=== PATIENT | male | born 1960 | race Caucasian/White ===

== ENCOUNTER → 2017-10-19 16:57 | Outpatient (CLI) | payer OTHER, SELFPAY ==
[2017-10-19 17:49] LABS: Absolute Lymphocyte Count 1.54 X10^3/ul (0.83-4.51); Absolute Neutrophil Count 3.5 X10^3/uL (2.0-7.7); Basophil# 0.03 X10^3/uL; Basophil% 0.5 % (0-1); Eosinophil# 0.22 X10^3/uL; Eosinophils% 3.8 % (0-5); Hemoglobin 14.4 g/dl (13.0-16.5); Lymphocyte # 1.54 X10^3/ul (4.0); Lymphocyte % 26.7 % (19-41); Mean Corp Hgb Conc 33.5 g/gl (32-36); Mean Corpuscular Hgb 30.4 pg (27.0-32.0); Mean Corpuscular Volume 90.9 fL (80-94); Mean Platelet Vol. 11.3 fl (6.2-12.0); Monocyte# 0.47 X10^3/uL; Monocyte% 8.2 % (0-10); Neutrophil # 3.49 X10^3/uL (2.7-7.7); Neutrophil % 60.6 % (47-70); Platelet Count 217 K/mm3 (150-450); RBC Distribution Width CV 13.4 % (11.6-14.6); RBC Distribution Width SD 44.3 fl (35.1-43.9); Red Blood Count 4.73 M/mm3 (4.6-6.2); White Blood Count 5.8 K/mm3 (4.4-11.0)
[2017-10-19 18:08] LABS: POSITIVE COUNT NO; POSITIVE DIFFERENTIAL NO; POSITIVE MORPHOLOGY NO
[2017-10-19 18:17] LABS: ALB/GLOB Ratio 1.1 RATIO (0.9-2.4); AST(SGOT) 31 U/L (15-37); Alanine Aminotransfer ALT/SGPT 42 U/L (16-61); Albumin, Serum 3.9 g/dL (3.2-5.0); Alkaline Phosphatase 68 U/L (45-117); Anion Gap 10 (5-15); BUN 11 mg/dL (7-18); Calcium,Total 8.7 mg/dL (8.5-10.1); Chloride 105 mmol/L (98-107); Creatinine, Serum 0.79 mg/dL (0.70-1.30); EST Glomerular Filtration Rate 107 mL/min (>60); Est Glom Filt Rate - Afr Amer 130 mL/min (>60); Globulin 3.6 g/dL (2.2-4.2); Glucose 80 mg/dL (74-106); Potassium 3.8 mmol/L (3.5-5.1); Protein, Total 7.5 g/dL (6.4-8.2); Sodium Level 140 mmol/L (136-145)
[2017-10-29 04:06] LABS: QNTFERON TB Ag Minus Nil Value 0 IU/mL (.); QNTFERON TB Ag Value 0.05 IU/mL (.); QNTFERON TB Mitogen Value > 10.00 IU/mL (.); QNTFERON TB Nil Value 0.05 IU/mL (.)
[2017-10-29 11:13] LABS: QNTIFERON TB Gold Negative (Negative)
== END ==
PROVIDERS: Family Provider Family Medicine; PCP Family Medicine; Visit Provider Physician Assistant
DX: L40.0 Psoriasis vulgaris (principal); Z79.899 Other long term (current) drug therapy
CPT/HCPCS: 36415; 80053; 85025; 86480

== ENCOUNTER → 2018-05-06 16:03 | Outpatient (CLI) | payer OTHER, SELFPAY ==
[2018-05-06 17:30] LABS: Absolute Lymphocyte Count 1.24 X10^3/ul (0.83-4.51); Absolute Neutrophil Count 3.4 X10^3/uL (2.0-7.7); Basophil# 0.03 X10^3/uL; Basophil% 0.5 % (0-1); Eosinophil# 0.23 X10^3/uL; Eosinophils% 4.2 % (0-5); Hematocrit 44.5 % (40-54); Hemoglobin 14.5 g/dl (13.0-16.5); Lymphocyte # 1.24 X10^3/ul (4.0); Lymphocyte % 22.6 % (19-41); Mean Corp Hgb Conc 32.6 g/gl (32-36); Mean Corpuscular Hgb 29.7 pg (27.0-32.0); Mean Platelet Vol. 10.6 fl (6.2-12.0); Monocyte# 0.57 X10^3/uL; Monocyte% 10.4 % (0-10); Neutrophil # 3.41 X10^3/uL (2.7-7.7); Neutrophil % 62.3 % (47-70); Platelet Count 185 K/mm3 (150-450); RBC Distribution Width CV 13.4 % (11.6-14.6); RBC Distribution Width SD 44.2 fl (35.1-43.9); Red Blood Count 4.89 M/mm3 (4.6-6.2); White Blood Count 5.5 K/mm3 (4.4-11.0)
[2018-05-06 17:32] LABS: POSITIVE COUNT NO; POSITIVE DIFFERENTIAL NO; POSITIVE MORPHOLOGY NO
[2018-05-06 17:42] LABS: Erythrocyte Sedimentation Rate 13 mm/hr (0-20)
[2018-05-06 17:48] LABS: ALB/GLOB Ratio 1.1 RATIO (0.9-2.4); AST(SGOT) 35 U/L (15-37); Alanine Aminotransfer ALT/SGPT 47 U/L (16-61); Albumin, Serum 3.9 g/dL (3.2-5.0); Alkaline Phosphatase 75 U/L (45-117); Anion Gap 12 (5-15); BUN 11 mg/dL (7-18); BUN/Creat Ratio 15.1 RATIO (10-20); Calcium,Total 8.4 mg/dL (8.5-10.1); Chloride 106 mmol/L (98-107); Creatinine, Serum 0.73 mg/dL (0.70-1.30); EST Glomerular Filtration Rate 118 mL/min (>60); Est Glom Filt Rate - Afr Amer 142 mL/min (>60); Globulin 3.5 g/dL (2.2-4.2); Glucose 66 mg/dL (74-106); PSA,Total - Annual Screen 1.41 ng/mL (0.00-4.00); Potassium 3.8 mmol/L (3.5-5.1); Protein, Total 7.4 g/dL (6.4-8.2); Sodium Level 142 mmol/L (136-145); Thyroid Stim Hormone (TSH) 1.95 uIU/mL (0.358-3.74)
== END ==
PROVIDERS: Family Provider Family Medicine; PCP Family Medicine; Referring Provider Physician Assistant; Visit Provider Physician Assistant
DX: L40.0 Psoriasis vulgaris (principal); Z79.899 Other long term (current) drug therapy
CPT/HCPCS: 36415; 80053; 84153; 84443; 85025; 85652; 86038; G0103

== ENCOUNTER → 2019-06-17 16:05 | Outpatient (CLI) | payer OTHER, SELFPAY ==
[2019-06-17 17:34] LABS: Absolute Neutrophil Count 3.3 X10^3/uL (2.0-7.7); Basophil# 0.03 X10^3/uL; Basophil% 0.6 % (0-1); Eosinophils% 3.7 % (0-5); Hematocrit 43.7 % (40-54); Hemoglobin 14.3 g/dL (13.0-16.5); Lymphocyte % 27.6 % (19-41); Mean Corp Hgb Conc 32.7 g/dL (32-36); Mean Corpuscular Hgb 29.4 pg (27.0-32.0); Mean Corpuscular Volume 89.9 fL (80-94); Mean Platelet Vol. 10.9 fl (6.2-12.0); Monocyte% 7.4 % (0-10); NRBC Flagged by Analyzer 0 % (0-5); Neutrophil % 60.5 % (47-70); Platelet Count 201 K/mm3 (150-450); RBC Distribution Width CV 13.2 % (11.6-14.6); RBC Distribution Width SD 43.7 fl (35.1-43.9); Red Blood Count 4.86 M/mm3 (4.6-6.2); White Blood Count 5.4 K/mm3 (4.4-11.0)
[2019-06-17 18:17] LABS: ALB/GLOB Ratio 1.2 RATIO (0.9-2.4); AST(SGOT) 40 U/L (15-37); Alanine Aminotransfer ALT/SGPT 50 U/L (16-61); Albumin, Serum 3.8 g/dL (3.2-5.0); Alkaline Phosphatase 76 U/L (45-117); Anion Gap 5 (5-15); BUN 11 mg/dL (7-18); BUN/Creat Ratio 17.2 RATIO (10-20); Calcium,Total 8.7 mg/dL (8.5-10.1); Chloride 106 mmol/L (98-107); Creatinine, Serum 0.64 mg/dL (0.70-1.30); EST Glomerular Filtration Rate 136 mL/min (>60); Est Glom Filt Rate - Afr Amer 164 mL/min (>60); Globulin 3.2 g/dL (2.2-4.2); Glucose 79 mg/dL (74-106); Potassium 3.7 mmol/L (3.5-5.1); Sodium Level 140 mmol/L (136-145)
[2019-06-20 20:06] LABS: QNTFERON TB Mitogen Value > 10.00 IU/mL (.); QNTFERON TB Nil Value 0.02 IU/mL (.); QNTFERON TB1+ Ag Value 0.02 IU/mL (.); QNTFERON TB2+ Ag Value 0.01 IU/mL (.)
[2019-06-21 00:53] LABS: QNTIFERON TB Positive Criteria Negative (Negative)
== END ==
PROVIDERS: PCP Family Medicine; Referring Provider Dermatology Pediatric Dermatology; Visit Provider Dermatology Pediatric Dermatology
DX: L40.0 Psoriasis vulgaris (principal)
CPT/HCPCS: 36415; 80053; 84153; 85025; 86480; G0103

== ENCOUNTER 2021-03-17 14:46 | Outpatient (CLI) | payer OTHER, SELFPAY ==
[2021-03-17 17:59] LABS: Absolute Neutrophil Count 3.8 X10^3/uL (2.0-7.7); Basophil# 0.06 X10^3/uL; Eosinophil# 0.24 X10^3/uL; Hematocrit 44.6 % (40-54); Hemoglobin 14.4 g/dL (13.0-16.5); Lymphocyte % 23.3 % (19-41); Mean Corp Hgb Conc 32.3 g/dL (32-36); Mean Corpuscular Hgb 29.6 pg (27.0-32.0); Mean Corpuscular Volume 91.8 fL (80-94); Mean Platelet Vol. 11.3 fl (6.2-12.0); Monocyte# 0.49 X10^3/uL; Monocyte% 8.2 % (0-10); NRBC Flagged by Analyzer 0 % (0-5); Neutrophil # 3.81 X10^3/uL (2.7-7.7); Neutrophil % 63.3 % (47-70); Platelet Count 232 K/mm3 (150-450); RBC Distribution Width CV 12.9 % (11.6-14.6); RBC Distribution Width SD 43.4 fl (35.1-43.9); Red Blood Count 4.86 M/mm3 (4.6-6.2)
[2021-03-17 18:22] LABS: AST(SGOT) 33 U/L (15-37); Alanine Aminotransfer ALT/SGPT 50 U/L (16-61); Albumin, Serum 3.8 g/dL (3.2-5.0); Alkaline Phosphatase 80 U/L (45-117); Anion Gap 7 (5-15); BUN 17 mg/dL (7-18); BUN/Creat Ratio 24.4 RATIO (10-20); Calcium,Total 8.9 mg/dL (8.5-10.1); Chloride 104 mmol/L (98-107); EST Glomerular Filtration Rate 123 mL/min (>60); Est Glom Filt Rate - Afr Amer 148 mL/min (>60); Globulin 3.9 g/dL (2.2-4.2); Glucose 66 mg/dL (74-106); Potassium 3.5 mmol/L (3.5-5.1); Protein, Total 7.7 g/dL (6.4-8.2); Sodium Level 138 mmol/L (136-145)
[2021-03-20 16:09] LABS: QNTFERON TB Mitogen Value > 10.00 IU/mL (.); QNTFERON TB Nil Value 0.03 IU/mL (.); QNTFERON TB1+ Ag Value 0.19 IU/mL (.); QNTFERON TB2+ Ag Value 0.02 IU/mL (.)
[2021-03-21 11:26] LABS: QNTIFERON TB Positive Criteria Negative (Negative)
== END 2021-03-17 23:59 | disposition short-term general hospital (02) ==
LOC: MTLAB 14:48
PROVIDERS: PCP Family Medicine; Referring Provider Physician Assistant; Visit Provider Physician Assistant
DX: L40.0 Psoriasis vulgaris (principal); Z79.899 Other long term (current) drug therapy
CPT/HCPCS: 36415; 80053; 85025; 86480

== ENCOUNTER 2023-07-19 07:39 | Day surgery (SDC) | payer BC, SELFPAY ==
[2023-07-19] VITALS (12 sets, daily range): BP systolic 106–137; BP diastolic 72–90; PULSE 74–92; RESP 16–23; TEMP 36.4–36.9; O2SAT 94–99; BMI 29.9
--- NOTE | 2023-07-19 07:47 | RAD_ITS ---
EXAM: XR CHEST, 1 VIEW CLINICAL INDICATION: chest pain TECHNIQUE: Frontal view of the chest. COMPARISON: XR Chest dated 08/14/2012 FINDINGS: LUNGS AND PLEURAL SPACES: Normal. No consolidation or edema. No pneumothorax. No effusion. HEART: Normal heart size. MEDIASTINUM: No mediastinal or hilar mass. BONES/JOINTS: No acute abnormality. RAD/Chest 1 View (Portable) IMPRESSION: No acute cardiopulmonary abnormality. No interval change. Electronically Signed: Brandon Sifuentes MD at 8:39 EDT ,
--- NOTE | 2023-07-19 07:47 | EKG12_ITS ---
Test Reason : CP Blood Pressure : / mmHG Vent. Rate : 092 BPM Atrial Rate : 092 BPM P-R Int : 174 ms QRS Dur : 090 ms QT Int : 340 ms P-R-T Axes : 027 -02 009 degrees QTc Int : 420 ms Normal sinus rhythm Normal ECG Confirmed by Raj Llanes ([id number]), assistant production editor JEISON HAMMOND ([id number]) on 07/20/2023 10:17:01 AM Referred By: Confirmed By:Raj Llanes
[2023-07-19] MEDS: Aspirin 81 MG TAB.CHEW 324 MG PO (07:51)
[2023-07-19 08:01] LABS: Absolute Lymphocyte Count 1.43 X10^3/uL (0.83-4.51); Absolute Neutrophil Count 4.7 X10^3/uL (2.0-7.7); Basophil# 0.03 X10^3/uL; Basophil% 0.4 % (0-1); Eosinophil# 0.26 X10^3/uL; Eosinophils% 3.6 % (0-5); Hemoglobin 14.8 g/dL (13.0-16.5); Lymphocyte # 1.43 X10^3/ul (0.83-4.51); Mean Corp Hgb Conc 32.2 g/dL (32-36); Mean Corpuscular Hgb 29.1 pg (27.0-32.0); Mean Corpuscular Volume 90.4 fL (80-94); Mean Platelet Vol. 11.2 fl (6.2-12.0); Monocyte# 0.72 X10^3/uL; Monocyte% 10.1 % (0-10); NRBC Flagged by Analyzer 0 % (0-5); Neutrophil # 4.69 X10^3/uL (2.7-7.7); Neutrophil % 65.5 % (47-70); Platelet Count 190 K/mm3 (150-450); RBC Distribution Width CV 12.9 % (11.6-14.6); RBC Distribution Width SD 42.6 fl (35.1-43.9); Red Blood Count 5.09 M/mm3 (4.6-6.2); White Blood Count 7.2 K/mm3 (4.4-11.0)
--- NOTE | 2023-07-19 08:10 | EDS_ITS ---
HPI History of Present Illness Chief Complaint: Chest Pain Informant: patient and family Narrative Narrative: 62-year-old male presenting to the emergency room with chest pain. Patient notes a history of psoriasis. He states he is otherwise a very healthy indivi dual. He is non-smoker. 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 Last evening around 0500 hrs. he began to feel a knot in his lower mid chest. Nonradiating. States it was constant for about an hour until he was driving home when it started to ease up but is still present. He notes no associated symptoms like arm jaw radiation, nausea, fatigue, dyspnea. He has had this once before which led to a stress test that was negative. He states it has been many years since that has happened. He notes no change in his exercise tolerance. [facility] Medical History Psoriasis Home Medications ?Medication ?Instructions ?Recorded ?Last Taken ?Type secukinumab 75 mg/0.5 mL 150 mg subcut Q4W 02/18/21 Unknown History subcutaneous syringe (Cosentyx) Allergy/AdvReac Type Severity Reaction Status Date / Time No Known Allergies Allergy Verified 07/19/23 07:42 Family History Other Heart disease Social History Smoking Status: Former smoker alcohol intake: current alcohol intake frequency: 0-2 drinks per day Alcohol type: beer ROS ROS ED Constitutional Constitutional ED: Denies chills, fever(s) or weight loss Eyes Eyes: Denies change in vision or diplopia ENT ENT ED: Denies ear pain, rhinorrhea or sore throat Cardiovascular Cardiovascular: Reports as per HPI and chest pain; Denies orthopnea, palpitations or racing heartbeat Respiratory/Chest Respiratory/Chest: Denies cough, dyspnea or orthopnea Gastrointestinal Gastrointestinal: Denies abdominal pain, diarrhea, nausea or vomiting Genitourinary Genitourinary ED: Denies dysuria, hematuria or urinary frequency Musculoskeletal Musculoskeletal: Denies arthralgias, back pain, myalgias or neck pain Integumentary Denies abscess or rash Neurologic Neurologic: Denies headache(s) or weakness Psychiatric Psychiatric: Denies anxiety, depression, suicidal ideation or suicidal thoughts Endocrine Endocrinology: Denies polydipsia, polyphagia or polyuria Allergic/Immunologic Allergic/Immunologic ED: Denies mouth swelling, tongue swelling or urticaria EXAM Physical Exam Const Vital Signs: 07/19/23 07:39 07/19/23 07:42 07/19/23 08:39 Temperature 98.4 F Temperature Source Oral Pulse Rate 92 85 Respiratory Rate 18 17 Respiratory Effort Normal Non-Labored Blood Pressure 137/78 H 115/73 Blood Pressure Mean 97 87 Pulse Ox 95 96 Oxygen Delivery Method Room Air Room Air 07/19/23 09:00 07/19/23 10:00 07/19/23 11:00 Temperature Temperature Source Pulse Rate 82 83 83 Respiratory Rate 16 23 H 18 Respiratory Effort Blood Pressure 123/87 H 117/81 H 123/75 H Blood Pressure Mean 99 93 91 Pulse Ox 99 95 96 Oxygen Delivery Method Room Air Room Air 07/19/23 13:00 07/19/23 13:39 Temperature 97.5 F L Temperature Source Pulse Rate 85 86 Respiratory Rate 16 19 H Respiratory Effort Blood Pressure 129/72 H 135/82 H Blood Pressure Mean 91 99 Pulse Ox 96 94 Oxygen Delivery Method Room Air Positive well nourished and well developed General Appearance ED: well developed HEENT Reports normocephalic, head/scalp atraumatic and moist mucous membranes Eyes PERRL and EOMs intact bilaterally Neck no lymphadenopathy, supple and no JVD Resp normal respiratory effort and clear to auscultation bilaterally Cardio regular rate, regular rhythm and no murmurs GI normal to inspection, nondistended, normoactive bowel sounds and non-tender Palpation: soft Back/Spine no CVA tenderness and normal ROM Extremity normal to inspection General Extremety ED: Negative for edema General Extremity: Negative for edema Neuro oriented x3 and CN's II-XII intact bilaterally Sensorium / Orientation: alert Motor Exam: strength 5/5 throughout Psych mental status grossly normal Mood & Affect: Negative for depressed or tearful Skin no rashes or lesions noted and no wounds MDM MDM MDM Narrative Medical decision making narrative: Differential diagnosis includes but not limited to aortic dissection acute coron braxton syndrome, gastritis/esophagitis, pneumothorax, pericarditis myocarditis pericardial effusion. My independent interpretation of the chest x-ray is no acute process. Initial troponin of 17 and increased to 56. CBC normal. BMP within normal creatinine. Patient continues to feel the discomfort in his lower mid chest. States he really cannot describe it but knows it is not a normal feeling after reviewing the 2 troponins I contacted cardiology.. I spoke with cardiology. We are actually able to get him an outpatient stress test today through the emergency department. He went to the stress test and complained of increased chest pain with exertion. However his EKG and echocardiogram were essentially negative. Dr. Llanes from cardiology came to evaluate the patient. After speaking with him and reviewing the findings decision was made to take him down for heart catheterization which the patient is agreeable to. History & Record Review Discussion w/independent historian: Patient and Family Additional record(s) reviewed:: Prior labs Lab Data Attestation: I reviewed the patient's lab results. Labs: Laboratory Results - last 24 hr 07/19/23 07/19/23 07:45 09:50 WBC 7.2 RBC 5.09 Hgb 14.8 Hct 46.0 MCV 90.4 MCH 29.1 MCHC 32.2 RDW Std Deviation 42.6 RDW Coeff of Ariana 12.9 Plt Count 190 MPV 11.2 Immature Gran % (Auto) 0.400 Neut % (Auto) 65.5 Lymph % (Auto) 20.0 [place] % (Auto) 10.1 H Eos % (Auto) 3.6 Baso % (Auto) 0.4 Absolute Neuts (auto) 4.7 Absolute Lymphs (auto) 1.43 Nucleated RBC % 0 Sodium 137 Potassium 4.1 Chloride 104 Carbon Dioxide 28.0 Anion Gap 5 BUN 13 Creatinine 0.90 Estim Creat Clear Calc 97.11 Est GFR (MDRD) Af Amer 110 Est GFR (MDRD) Non-Af 91 BUN/Creatinine Ratio 14.5 Glucose 149 H Calcium 9.0 Troponin I High Sens 17 56 Radiography Diagnostic Testing: Clinical Impression(s) from Imaging Studies Chest X-Ray 07/19/23 07:47 IMPRESSION: No acute cardiopulmonary abnormality. No interval change. Electronically Signed: Brandon Sifuentes MD at 8:39 EDT , EKG Initial EKG: Attestation: I personally reviewed and interpreted this EKG as follows: Comments: Normal sinus rhythm ventricular rate of 92 bpm. No concerning features of ACS noted Management Discussion w/another healthcare provider: Engineering Specialist Technician (Cardiology (Dr. Llanes)) Discharge Plan Dx/Rx/DC Orders Clinical Impression: Chest pain Disposition Disposition: Acute Care Hospital [facility] [place] [facility]
[2023-07-19 08:20] LABS: Anion Gap 5 (5-15); BUN 13 mg/dL (7-18); BUN/Creat Ratio 14.5 RATIO (10-20); Chloride 104 mmol/L (98-107); EST Glomerular Filtration Rate 91 mL/min (>60); Est Glom Filt Rate - Afr Amer 110 mL/min (>60); Estimated Creatinine Clearance 97.11 ml/min; Glucose 149 mg/dL (74-106); Potassium 4.1 mmol/L (3.5-5.1); Sodium Level 137 mmol/L (136-145); Troponin-I HS (w/2H Reflex) 17 pg/mL (3.0-78.0)
[2023-07-19 09:57] LABS: Reflex Troponin-HS? (from REC) Y
[2023-07-19 10:15] LABS: Troponin-I HS 56 pg/mL (3.0-78.0)
--- NOTE | 2023-07-19 11:19 | STE_ITS ---
Reason For Study: CHEST PAIN Stress Results Protocol: Manjit Protocol Maximum Predicted HR: 157 bpm Target HR: 133 bpm % Maximum Predicted HR: 90 % DurationHeart Rate Stage (mm:ss) (bpm) BP Comment BASELINE 78 120/70 STAGE 1 3:00 105 128/70 STAGE 2 3:00 125 152/78INCREASED SOB, WITH DULL PAIN IN CHEST STAGE 3 2:00 142 182/82DISCOMFORT IN CHEST THE SAME RECOVERY 103 130/82 Stress Duration: 8:00 mm:ss Maximum Stress HR: 142 bpm Baseline Echocardiogram Findings The estimated ejection fraction is 65 %. Postexercise EF is 70%. Stress Echo Wall motion Data Resting WM Intermediate WM Stress WM Resting Wall Motion Wall Motion Stress No regional wall motion No regional wall motion abnormalities noted. abnormalities noted. EKG Data The baseline ECG displays normal sinus rhythm. No significant ischemic changes. Symptoms with Stress The patient experinced Mild, dull chest pain with exercise . ECHO/Stress Test Echo w/o Contrast Interpretation Summary The estimated ejection fraction is 65 %. Stress echo is negative for exercise-induced EKG or echocardiographic changes o f ischemia. The test is positive for exercise-induced chest discomfort Functional capacity is normal for age Ordering Physician: Kaden Cuevas Performed By: Tova Machado RCS
--- NOTE | 2023-07-19 14:04 | PCM.CONS.C ---
Assessment & Plan Assessment/Plan (1) Chest pain: QUALIFIERS: Chest pain type: precordial pain Qualified Code(s): R07.2 - Precordial pain PLAN: second troponin went up to 17 His initial enzymes were single digit isThe patient's chest discomfort started with heavy activity earlier this morning. and he went to stress test which he symptoms increased he had did not meet criteria for ischemia EKG changes his wall motion was not completely visualized on the echo. He continues to have some of the chest discomfort although it is resolved back to baseline after the stress test. 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 I recommend the patient undergo a left heart catheterization the procedure risk/benefit and alternatives were explained to the patient who voiced understanding and agrees to proceed. PLAN: Plan 1. Recommend urgent left heart catheterization HPI Consult Data Date of Consult: 07/19/23 HPI Narrative Reason for Consultation: Chest pain and abnormal stress test. HPI Narrative: HOLLIE STOVER, is a 62 M who presents to the emergency room with [facility] with an episode of chest symptoms in his lower anterior thorax that started at approximately 0500 hrs. 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 The patient never experienced this in the past. His cardiac isoenzymes were negative x 2 and his EKG did not show any acute ischemic changes. Patient's only known past medical history was psoriasis. He was a former smoker. There is also a family of heart disease but is uncertain if this was valvular or atherosclerotic. Patient denies any PND orthopnea and denies any lower extremity edema. He denies any claudication. A stress echo was performed today where the patient went 8 minutes on the treadmill he had increasing chest symptoms on the treadmill did not meet diagnostic criteria for ischemic changes on the EKG his wall motion as best could be ascertained was unremarkable for any wall motion abnormalities. [facility] Medical History Psoriasis Home Medications ?Medication ?Instructions ?Recorded ?Last Taken ?Type secukinumab 75 mg/0.5 mL 150 mg subcut Q4W 02/18/21 Unknown History subcutaneous syringe (Cosentyx) Allergy/AdvReac Type Severity Reaction Status Date / Time No Known Allergies Allergy Verified 07/19/23 07:42 Family History Other Heart disease Social History Smoking Status: Former smoker alcohol intake: current alcohol intake frequency: 0-2 drinks per day Alcohol type: beer ROS Constitutional Constitutional: Reports as per HPI Eyes Eyes: Reports systems reviewed and no addt'l complaints, except as documented ENT HEENT: Reports systems reviewed and no addt'l complaints, except as documented Cardiovascular Cardiovascular: Reports as per HPI Respiratory/Chest Respiratory/Chest: Reports as per HPI Gastrointestinal Gastrointestinal: Reports systems reviewed and no addt'l complaints, except as documented Genitourinary Genitourinary: Reports systems reviewed and no addt'l complaints, except as documented Musculoskeletal Musculoskeletal: Reports systems reviewed and no addt'l complaints, except as documented Integumentary Integumentary: Reports systems reviewed and no addt'l complaints, except as documented Neurologic Neurologic: Reports systems reviewed and no addt'l complaints, except as documented Psychiatric Psychiatric: Reports systems reviewed and no addt'l complaints, except as documented Endocrine Endocrinology: Reports systems reviewed and no addt'l complaints, except as documented Hematologic/Lymphatic Hematologic/Lymphatic: Reports systems reviewed and no addt'l complaints, except as documented Allergic/Immunologic Allergic/Immunologic: Reports systems reviewed and no addt'l complaints, except as documented Risk Stratification Risk Stratification Applicable: Yes Age >/= 65: No >/= 3 CAD Risk Factors (HTN, HLD, DM, family hx of CAD, or current smoker): No Aspirin Use in the Past 7 Days: No Severe Angina (>/= episodes in 24 hours): Yes EKG ST Changes >/= 0.5mm: No Positive Cardiac Marker: No [place] Risk Stratification Score: 1 [place] % Risk: 5% Risk Charges/Coding Visit Charges Inpatient E&M: 76445 Init Hosp L2 Objective Data Vital Signs: Vital Signs Temp Pulse Resp BP Pulse Ox O2 Del Method 97.5 F L 86 19 H 135/82 H 94 Room Air 07/19/23 13:39 07/19/23 13:39 07/19/23 13:39 07/19/23 13:39 07/19/23 13:39 07/19/23 13:00 Oxygen Delivery Method Room Air Weight: 208 lb 15.971 oz Body Mass Index (BMI) 29.9 Lab / Micro Data Attestation: I reviewed the patient's lab results. 07/19/23 07:45 07/19/23 07:45 Labs: Laboratory Results - last 24 hr 07/19/23 07:45: WBC 7.2, RBC 5.09, Hgb 14.8, Hct 46.0, MCV 90.4, MCH 29.1, MCHC 32.2, RDW Std Deviation 42.6, RDW Coeff of Ariana 12.9, Plt Count 190, MPV 11.2, Immature Gran % (Auto) 0.400, Neut % (Auto) 65.5, Lymph % (Auto) 20.0, [place] % (Auto) 10.1 H, Eos % (Auto) 3.6, Baso % (Auto) 0.4, Absolute Neuts (auto) 4.7, Absolute Lymphs (auto) 1.43, Nucleated RBC % 0, Sodium 137, Potassium 4.1, Chloride 104, Carbon Dioxide 28.0, Anion Gap 5, BUN 13, Creatinine 0.90, Estim Creat Clear Calc 97.11, Est GFR (MDRD) Af Amer 110, Est GFR (MDRD) Non-Af 91, BUN/Creatinine Ratio 14.5, Glucose 149 H, Calcium 9.0, Troponin I High Sens 17 07/19/23 09:50: Troponin I High Sens 56 Cardiology Labs/Tests 07/19/23 07:45: WBC 7.2, RBC 5.09, Hgb 14.8, Hct 46.0, MCV 90.4, MCH 29.1, MCHC 32.2, Plt Count 190, MPV 11.2, Immature Gran % (Auto) 0.400, Neut % (Auto) 65.5, Lymph % (Auto) 20.0, [place] % (Auto) 10.1 H, Eos % (Auto) 3.6, Baso % (Auto) 0.4, Absolute Neuts (auto) 4.7, Nucleated RBC % 0, Sodium 137, Potassium 4.1, Chloride 104, Carbon Dioxide 28.0, Anion Gap 5, BUN 13, Creatinine 0.90, Est GFR (MDRD) Af Amer 110, Est GFR (MDRD) Non-Af 91, BUN/Creatinine Ratio 14.5, Glucose 149 H, Calcium 9.0 Rhythm: EKG: ECHO: Stress Test: Cardiac Cath: PCI: CT Surgery: Holter monitor: EPS: PPM: CXR: Chest CT Scan: Radiography Diagnostic Testing: Radiology Impression Chest X-Ray 07/19/23 07:47 IMPRESSION: No acute cardiopulmonary abnormality. No interval change. Electronically Signed: Brandon Sifuentes MD at 8:39 EDT ,
--- NOTE | 2023-07-19 14:44 | CL.D_ITS ---
Patient Name: HOLLIE STOVER Study Date: 07/19/2023 Performing: Lynda George MD Ht: 70 inches 177.8 cm : 1960 Wt: 209.3 lbs 94.8 kg Age: 62 Gender: male BSA: 2.13 PROCEDURE(S) PERFORMED [id number]-([id number])[facility] CLINICAL PROFILE AND INDICATIONS Heart Failure: None CAD Presentations: Unstable angina. CONCLUSIONS CAD as described. RECOMMENDATIONS Medical therapy for coronary artery disease at this time DESCRIPTION OF PROCEDURE The patient arrived to the procedure lab. The risks and benefits of the procedure as well as a full description of our services here and current unavailability of surgical backup were fully explained to the patient and/or their significant other prior to the catheterization. The Timeout was completed, verifying the correct patient and procedure. The patient's procedural site was prepped and draped in the usual fashion. Local anesthetic was given subcutaneously to right radial region with Lidocaine 2%. Using a modified Seldinger technique, arterial access was obtained via the right radial artery, a 6Fr sheath was inserted. Left Coronary Artery selective angiography was performed in multiple views using a 5 Fr. JL3.5 catheter. Right Coronary Artery selective angiography was then performed in multiple views using a 5 Fr. JR 4 catheter.The arterial sheath was pulled and a TR Band was applied for hemostasis CORONARY ANGIOGRAPHY DOMINANCE: Right Dominant LEFT MAIN: 30% distal stenosis LEFT ANTERIOR DESCENDING ARTERY: OSTIAL LAD: 40 % eccentric Stenosis CIRCUMFLEX ARTERY: OSTIAL CIRC: 50-60 % Stenosis RIGHT CORONARY ARTERY: Mild luminal irregularities COMPLICATIONS No Complications PROCEDURE MEDICATIONS Versed 1 mg IV Fentanyl 50 mcg IV Oxygen: 2 L/min via nasal cannula Heparin given IA 07/19/2023 14:08:19 Verapamil 2.5mg, Ntg 100mcgs, 3000 units of Heparin given IA 07/19/2023 14:08:19 SUMMARY OF HEMODYNAMIC DATA Time AIR REST ECG 13:53:04 AO 88/71 (79) SA 14:10:44 AO 113/82 (97) 14:14:14 Signed By Lynda George MD On 07/19/2023 14:44:54 Signed By Lynda George MD On 07/19/2023 14:44:01 Signed By Lynda George MD On 07/19/2023 14:43:01 Lynda George MD
--- NOTE | 2023-07-19 15:38 | PCM.PN.CARD ---
Subjective Subjective Patient's left heart catheterization revealed mild left main trunk disease, moderate ostial LAD and ostial circumflex disease the LAD being approximately 40% in the circumflex 50%. The right coronary artery had no significant disease. It appears that this is nonobstructive and the chest symptoms were noncardiac in etiology. However, given the found coronary artery disease aggressive secondary risk factors will be addressed. Rosuvastatin 20 mg daily will be instituted. The patient will have fasting lipids and liver functions reevaluated in 6 to 8 weeks. He will be seen in our office in the morning that same day. The patient was given instructions. Once the patient's recovery is complete from his cath he can be discharged to home. Objective Data Vital Signs: Vital Signs Temp Pulse Resp BP Pulse Ox O2 Del Method 97.5 F L 86 19 H 135/82 H 94 Room Air 07/19/23 13:39 07/19/23 13:39 07/19/23 13:39 07/19/23 13:39 07/19/23 13:39 07/19/23 13:00 Oxygen Delivery Method Room Air Weight: 208 lb 15.971 oz Body Mass Index (BMI) 29.9 Lab / Micro Data 07/19/23 07:45 07/19/23 07:45 Labs: Laboratory Results - last 24 hr 07/19/23 07:45: WBC 7.2, RBC 5.09, Hgb 14.8, Hct 46.0, MCV 90.4, MCH 29.1, MCHC 32.2, RDW Std Deviation 42.6, RDW Coeff of Ariana 12.9, Plt Count 190, MPV 11.2, Immature Gran % (Auto) 0.400, Neut % (Auto) 65.5, Lymph % (Auto) 20.0, [place] % (Auto) 10.1 H, Eos % (Auto) 3.6, Baso % (Auto) 0.4, Absolute Neuts (auto) 4.7, Absolute Lymphs (auto) 1.43, Nucleated RBC % 0, Sodium 137, Potassium 4.1, Chloride 104, Carbon Dioxide 28.0, Anion Gap 5, BUN 13, Creatinine 0.90, Estim Creat Clear Calc 97.11, Est GFR (MDRD) Af Amer 110, Est GFR (MDRD) Non-Af 91, BUN/Creatinine Ratio 14.5, Glucose 149 H, Calcium 9.0, Troponin I High Sens 17 07/19/23 09:50: Troponin I High Sens 56 Cardiology Labs/Tests 07/19/23 07:45: WBC 7.2, RBC 5.09, Hgb 14.8, Hct 46.0, MCV 90.4, MCH 29.1, MCHC 32.2, Plt Count 190, MPV 11.2, Immature Gran % (Auto) 0.400, Neut % (Auto) 65.5, Lymph % (Auto) 20.0, [place] % (Auto) 10.1 H, Eos % (Auto) 3.6, Baso % (Auto) 0.4, Absolute Neuts (auto) 4.7, Nucleated RBC % 0, Sodium 137, Potassium 4.1, Chloride 104, Carbon Dioxide 28.0, Anion Gap 5, BUN 13, Creatinine 0.90, Est GFR (MDRD) Af Amer 110, Est GFR (MDRD) Non-Af 91, BUN/Creatinine Ratio 14.5, Glucose 149 H, Calcium 9.0 Rhythm: EKG: ECHO: Stress Test: Cardiac Cath: PCI: CT Surgery: Holter monitor: EPS: PPM: CXR: Chest CT Scan: Radiography Diagnostic Testing: Radiology Impression Chest X-Ray 07/19/23 07:47 IMPRESSION: No acute cardiopulmonary abnormality. No interval change. Electronically Signed: Brandon Sifuentes MD at 8:39 EDT Reading Location ID and State: [address] [place] [address] Tel , Service support , Assessment & Plan Assessment/Plan (1) CAD (coronary artery disease): QUALIFIERS: Coronary Disease-Associated Artery/Lesion type: [place] artery [place] vs. transplanted heart: [place] heart Associated angina: without angina Qualified Code(s): I25.10 - Atherosclerotic heart disease of [place] coronary artery without angina pectoris PLAN: The patient's stress test was abnormal with increasing chest symptoms with activity. However, the coronary anatomy shows 40 to 50% stenoses. We will address this with aggressive secondary risk factor modifications. Rosuvastatin has been started. (2) Chest pain: QUALIFIERS: Chest pain type: precordial pain Qualified Code(s): R07.2 - Precordial pain PLAN: The patient's chest discomfort appears to be noncardiac ischemic in etiology. It is resolving at this time. The patient does report in retrospect that he has had an significant cough over the last several days which is new for him which was not mentioned prior to me evaluating him post cath. PLAN: Plan Discharged to home after Clinical Supervisor recovery is completed.
== END 2023-07-19 18:30 | disposition home or self-care (01) ==
LOC: ED 14:19 → PCU 14:54 → ED 15:30 → PCU 15:30
PROVIDERS: Emergency Provider Emergency Medicine; PCP Family Medicine; Visit Provider Specialist
DX: I25.10 Atherosclerotic heart disease of native coronary artery without angina pectoris (principal); Z87.891 Personal history of nicotine dependence
CPT/HCPCS: 71045; 80048; 84484; 85025; 93005; 93017; 93350; 93454; 99152; 99153; 99285; J7040; Q9967; A4216; C1769; C1894

== ENCOUNTER → 2024-02-13 | Outpatient (CLI) | payer BC, SELFPAY ==
[2024-02-15 12:08] LABS: QNTFERON TB Mitogen Value > 10.00 IU/mL (.); QNTFERON TB Nil Value 0 IU/mL (.); QNTFERON TB1+ Ag Value 0.01 IU/mL (.); QNTFERON TB2+ Ag Value 0.03 IU/mL (.); QNTIFERON TB Positive Criteria Negative (Negative)
== END | disposition home or self-care (01) ==
PROVIDERS: PCP Family Medicine; Referring Provider Physician Assistant; Visit Provider Physician Assistant
DX: L40.0 Psoriasis vulgaris (principal); Z79.899 Other long term (current) drug therapy
CPT/HCPCS: 36415; 86480

== ENCOUNTER → 2025-01-16 | Outpatient (CLI) | payer BC, SELFPAY ==
--- OUTSIDE RECORDS SUMMARY | 2025-01-16 17:15 | XMS RPT_ITS | CCD ---
Author Organization [facility] Care Team Providers Care Ged Teacher Name Role Phone Coni Rogers MD Primary Care Provider Torri Nuñez Unavailable Torri Nuñez Unavailable Coni Rogers MD Primary Care Provider [phone] Coni Rogers MD Primary Care Provider [phone] CONI ROGERS Primary Care Unavailable PROVIDER, UNKNOWN Attending Unavailable PROVIDER, UNKNOWN Admitting Unavailable CONI ROGERS Primary Care Unavailable CHANTAL LA Attending Unavailable CONI ROGERS Primary Care Unavailable PROVIDER, UNKNOWN Attending Unavailable PROVIDER, UNKNOWN Admitting Unavailable CONI ROGERS Primary Care Unavailable CONI ROGERS Primary Care Unavailable STEPHANIA TINSLEY Referring Unavailab CONI Dunn Primary Care Unavailable KADEN DURON Attending Unavailable KADEN DURON Attending Unavailable CONI ROGERS Primary Care Unavailable CONI ROGERS Primary Care Unavailable SELF Referring Unavailable CONI ROGERS Attending Unavailable CONI ROGERS Primary Care Unavailable CONI ROGERS Referring Unavailable CONI ROGERS Primary Care Unavailable BUZZ SANTIAGO Attending Unavailable Florentino Rogers Primary Care Unavailable Raj Llanes Attending Unavailable Florentino Rogers Primary Care Unavailable Bia Zacarias Referring Unavailable Bia Zacarias Attending Unavailable Florentino Rogers Referring Unavailable Florentino Rogers Primary Care Unavailable Raj Llanes Attending Unavailable Florentino Rogers Primary Care Unavailable Kaden Cuevas Referring Unavailable Lorenza George Attending Unavailabl e Florentino Rogers Primary Care Unavailable Lorenza George Attending Lorenza Rocha Consulting Unavaileevlyne e Medications Current Medications Medication Drug Class(es) Dates Sig (Normalized) Sig (Original) acetaminophen 325 mg / oxyCODONE hydrochloride 5 mg oral tablet (5 sources) Opioid Agonist Start: 02-06-2023 take 1 tablet by mouth every six hours as needed for pain oxyCODONE-acetamino phen (PERCOCET) 5-325 mg tablet Indications: Postoperative pain Take 1 tablet by mouth every 6 hours as needed for pain. 25 tablet 02/06/2023 Active Start: 01-16-2023 take 1 tablet by raven th every six hours as needed for pain oxyCODONE-acetaminophen (PERCOCET) 5-325 mg tablet Indications: Postoperative pain Take 1 tablet by mouth every 6 hours as needed for pain. 15 tablet 0 01/16/2023 Active Comment on above: Take 1 tablet by raven th every 6 hours as needed for pain. CPAP (20 sources) Start: 07-18-2021 CPAP Initiate Auto PAP @ 5-20 cm of water with humidification. Mask (per patient preference) optional chin strap (if indicated) , filters, tubing, humidifier and lifetime supplies. 1 Each 07/18/2021 Active Start: 07-18-2021 CPAP Initiate Auto PAP @ 5-20 cm of water with humidification. Mask (per patient preference) optional chin strap (if indicated) , filters, tubing, humidifier and lifetime supplies. 1 Each 0 07/18/2021 Active Comment on above: Initiate Auto PAP @ 5-20 cm of water with humidification. Mask (per patient preference) optional chin strap (if indicated) , filters, tubing, humidifier and lifetime supplies. CPAP/BIPAP/OTHER (19 sources) Start: 06-20-2022 End: 11-04-2049 CPAP/BIPAP/OTHER Type .CPAPSettings into a note to see current settings/supplies/DME information. 1 Each 06/20/2022 11/04/2049 Active Start: 06-20-2022 End: 11-04-2049 CPAP/BIPAP/OTHER Type .CPAPS ettings into a note to see current settings/supplies/DME information. 1 Each 0 06/20/2022 11/04/2049 Active Comment on above: Type .CPAPSettings i nto a note to see current settings/supplies/DME information. polyethylene glycol 3350 [id number] mg / potassium chloride 2970 mg / sodium bicarbonate 6740 mg / sodium chloride 5860 mg / sodium sulfate 29755 mg powder for oral solution (1 source) Osmotic Laxative Start : 07-21 End: 07-21 peg 3350-Electrolytes (GOLYTELY) 236-22.74-6.74 -5.86 gram suspension Take 4,000 mL by mouth one time only for 1 dose. 1 Each 0 07/21/2021 07/21/2021 Active Comment on above: Take 4,000 mL by raven one time only for 1 dose. 1 ml secukinumab 150 mg/ml prefilled syringe (20 sources) Interleukin-17A Antagonist inject 150 mg by subcutaneous injection every month secukinumab (COSENTYX) 150 mg/mL injection Inject 150 mg subcutaneously once every month. Active End: 07-08-2021 secukinumab (COSENTYX PEN, 2 PENS,) 150 mg/mL pnij Inject subcutaneously twice daily. 0 07/08/2021 Discontinued Comment on above: Inject subcutaneousl y twice daily. Inject 150 mg subcut aneously once every month. Completed/Discontinued Medications Medication Drug Class(es) Dates Sig (Normalized) Sig (Original) FLUoxetine 40 mg oral capsule (14 sources) Serotonin Reuptake Inhibitor Start: 07-07-2022 End: 10-31-2022 take 1 capsule by mouth once daily FLUoxetine (PROZAC) 40 mg capsule Take 1 capsule by mouth once daily. 30 capsule 2 07/07/2022 10/10/2022 Discontinued Start: 06-07-2022 End: 07-07-2022 take 1 capsule by mouth once daily FLUoxetine (PROZAC) 20 mg capsule Indications: Adjustment disorder with mixed anxiety and depressed mood Take 1 capsule by mouth once daily. 30 capsule 2 06/07/2022 07/07/2022 Discontinued Comment on above: Take 1 capsule by [facility] once daily. omeprazole 40 mg delayed release oral capsule (1 source) Proton Pump Inhibitor Start: 11-30-2022 take 1 capsule by mouth once daily omeprazole (PRILOSEC) 40 mg capsule Take 1 capsule by mouth once daily. 90 capsule 0 11/30/2022 Active Comment on above: Take 1 capsule by mo idh once daily. Problems Active Problems Problem Classification Problem Date Documented Date Episodic/Chronic Adjustment disorders (3 sources) Adjustment disorder with mixed anxiety and depressed mood; Translations: [Adjustment disorder with mixed anxiety and depressed mood] Chronic Alcohol-related disorders (1 source) Alcohol abuse; Translations: [Alcohol dependence, in remission] Chronic Disorders of lipid metabolism (2 sources) Pure hypercholesterolemia; Translations: [Pure hypercholesterolemia, unspecified] Chronic E Codes: Unspecified (1 source) Civilian activity done for income or pay; Translations: [Work related injury] Onset: 09-26-2023 Episodic Esophageal disorders (1 source) Laryngopharyngeal reflux; Translations: [Gastro-esophageal reflux disease without esophagitis] 11-30-2022 Chronic Open wounds of extremities (2 sources) Laceration without foreign body of left forearm, initial encounter; Translations: [Laceration of forearm without foreign body] Onset: 09-26-2023 10-18-2023 Episodic Other and unspecified benign neoplasm (3 sources) History of polyp of colon; Translations: [Personal history of colonic polyps] Episodic Other inflammatory condition of skin (20 sources) Psoriasis; Translations: [Psoriasis, unspecified] Onset: 02-26-2011 02-21-2021 Chronic Other inflammatory condition of skin (20 sources) Psoriatic arthritis; Translations: [Arthropathic psoriasis, unspecified] Onset: 08-13-2015 08-13-2015 Chronic Other inflammatory condition of skin (2 sources) Psoriasis vulgaris; Translations: [Psoriasis vulgaris] Onset: 12-29-2022 Chronic Other liver diseases (20 sources) Elevated levels of transaminase & lactic acid dehydrogenase; Translations: [Nonspecific elevation of levels of transaminase or lactic acid dehydrogenase (LDH)] 03-31-2014 Episodic Other nervous system disorders (1 source) Carpal tunnel syndrome; Translations: [Carpal tunnel syndrome, bilateral upper limbs] Chronic Other nervous system disorders (4 sources) Bilateral carpal tunnel syndrome; Translations: [Carpal tunnel syndrome, bilateral upper limbs] Chronic Other nervous system disorders (2 sources) Carpal tunnel syndrome of left wrist; Translations: [Carpal tunnel syndrome, left upper limb] 09-06-2022 Chronic Other nervous system disorders (1 source) Carpal tunnel syndrome of right wrist; Translations: [Carpal tunnel syndrome, right upper limb] 09-06-2022 Chronic Other nervous system disorders (1 source) Carpal tunnel syndrome, left upper limb; Translations: [Carpal tunnel syndrome of left wrist] Onset: 01-16-2023 Chronic Other nervous system disorders (2 sources) Paresthesia of skin; Translations: [Disturbance of skin sensation] Episodic Other nervous system disorders (1 source) Paresthesia; Translations: [Paresthesia of skin] Episodic Other nervous system disorders (1 source) Postoperative pain ; Translations: [Other acute postprocedural pain] 01-16-2023 Episodic Other screening for suspected conditions (not mental disorders or infectious disease) (2 sources) Patient encounter status; Translations: [Encounter for screening for malignant neoplasm of colon] Episodic Other upper respiratory disease (2 sources) Hoarse; Translations: [Dysphonia] 10-31-2022 Episodic Residual codes; unclassified (20 sources) Obstructive sleep apnea syndrome; Translations: [Obstructive sleep apnea (adult) (pediatric)] Onset: 10-04-2009 10-04-2009 Chronic Residual codes; unclassified (1 source) Pain; Translations: [Pain, unspecified] 09-06-2022 Episodic Past or Other Problems Problem Classification Problem Date Documented Date Episodic/Chronic Nonspecific chest pain (2 sources) Chest pain, unspecified; Translations: [Precordial pain] Onset: 07-30-2023 Episodic Other aftercare (20 sources) Long-term current use of immunosuppressive drug; Translations: [Other long chain beamer (current) drug therapy] Onset: 11-21-2016 11-21-2016 Episodic Other nervous system disorders (1 source) Other acute postprocedural pain; Translations: [Postoperative pain] Onset: 02-06-2023 Episodic Other skin disorders (20 sources) Dystrophia unguium; Translations: [Nail dystrophy] Onset: 11-24-2009 11-24-2009 Episodic Other skin disorders (20 sources) Mass of palm; Translations: [Localized swelling, mass and lump, left upper limb] Onset: 11-21-2016 11-21-2016 Episodic Other upper respiratory disease (1 source) Dysphonia; Translations: [Hoarse voice quality] Onset: 11-30-2022 Episodic Spondylosis; intervertebral disc disorders; other back problems (20 sources) Neck pain; Translations: [Cervicalgia] Onset: 11-24-2009 11-24-2009 Episodic Results Test Name Value Interpretation Reference Range Facility Quantiferon TB-Gold+on 02-14 QFT MITOGEN MADAY > 10.00 Normal . [facility] Comment on above: Performed By: #### L [id number] #### [facility] [address] [place], [address] QFT NIL VALUE 0 IU/mL Normal . [facility] Comment on above: Performed By: #### L [id number] #### [facility] [address] [place], [address] QFT TB GOLD+ Comment Normal . [facility] Comment on above: Result Comment: Diaz tiFERON-TB Gold Plus is a qualitative indirect test for M tuberculosis infection (including disease) and is intended for use in conjunction with risk assessment, radiography, and other medical and diagnostic evaluations. The QuantiFERON-TB Gold Plus result is determined by subtracting the Nil value from either TB antigen (Ag) value. The Mitogen tube serves as a control for the test. Performed By: #### L [id number] #### [facility] [address] [place], [address] QFT TB POS CRIT Negative Normal Negative [facility] Comment on above: Result Comment: No r esponse to M tuberculosis antigens detected. Infection with M tuberculosis is unlikely, but high risk individuals should be considered for additional testing (ATS/IDSA/CDC Clinical Practice Guidelines, 2017). The reference range is an Antigen minus Nil result of <0.35 IU/mL. The specimen received for QuantiFERON testing was incubated by the ordering institution. Specific procedures outlined in our Directory of Services and in the package insert for the QuantiFERON Gold (In Tube) test must be followed to enable for proper stimulation of cells for the production of interferon gamma. Chemiluminescence immunoassay methodology Performed at: [facility] [id number] [employer] Worker: Dean Farrell PhD, Phone: [phone] Performed By: #### L [id number] #### [facility] [address] [place], [address] QFT TB1+ AG MADAY 0.01 IU/mL Normal . [facility] Comment on above: Performed By: #### L [id number] #### [facility] [address] [place], [address] QFT TB2+ AG MADAY 0.03 IU/mL Normal . [facility] Comment on above: Performed By: #### L [id number] #### [facility] [address] [place], [address] CNOVon 10-05-2023 CNOV Office Visit (CCATME ) HOLLIE STOVER ([id number]) 1960 M Date Time Provider Department 10/05/23 1:00 PM CC [facility] During your visit today, we recorded the following information about you: Referring Provider: SELF [200] Allergies As of Date: 10/05/2023 (No Known Allergies) Date Reviewed: 09/26/2023 Reviewed by: Tete Bejarano, RN - Fully Assessed Reason for Visit: Arm Injury [1957] Cmt: Left Primary Visit Diagnosis:Laceration without foreign body of left forearm, initial encounter [S51.812A] Prescriptions as of 10/18/2023 - oxyCODONE-acetaminophe n (PERCOCET) 5-325 mg tablet Take 1 tablet by mouth every 6 hours as needed for pain. - CPAP/BIPAP/OTHER Type .CPAPSettings into a note to see current settings/supplies/DME information. - CPAP Initiate Auto PAP @ 5-20 cm of water with humidification. Mask (per patient preference) optional chin strap (if indicated) , filters, tubing, humidifier and lifetime supplies. - secukinumab (COSENTYX) 150 mg/mL injection Inject 150 mg subcutaneously once every month. Problem List As Of Date 10/05/2023 Noted Resolved PAT (Obstructive Sleep Apnea) [G47.33] 10/04/2009 Cervicalgia [M54.2] 11/24/2009 Nail Dystrophy [L60.3] 11/24/2009 Psoriasis [L40.9] 02/26/2011 Nonspecific elevation of levels of transaminase* Psoriatic arthropathy (HCC) [L40.50] 08/13/2015 Long-term use of immunosuppressant medication [*11/21/2016 Nodule of left palm [R22.32] 11/21/2016 Encounter Status:Closed by NAYA VENCES on 10/18/23 [facility] HNO ID: [id number] Author: DANELLE ALFRED RT(R) Service: Radiology Author Type: Technologist Type: [facility] Filed: 09/26/2023 09:17 Note Text: Radiology Service Progress Note PATIENT NAME: Hollie Stover DATE OF SERVICE: September 26, 2023 TIME: 9:17 AM PATIENT IDENTITY VERIFICATION COMPLETED USING TWO (2) IDENTIFIERS: Name and Date of confirmed by patient verbally and Name and Date of confirmed by identification band. FALL SCREENING: Has the patient had 2 falls in the last year or 1 fall with injury or currently using an Ambulatory Assistive Device (Walker, Cane, Wheelchair, Crutches, etc.)? Emergency Room Patient: Screened in ED PATIENT GENDER DATA: Male PATIENT RELEVANT IMPLANT DATA REVIEWED: Not Applicable PATIENT PRESENTS WITH AN IMPLANTABLE OR ATTACHED FILM ARCHIVIST: No RADIOLOGY DEPARTMENT: General X-ray: Exam(s) Completed: Upper Extremity X-Ray(s): Forearm, left PERIPHERAL IV DATA: Not applicable SIGNED BY: RT Sherita(R) September 26, 2023 9:17 AM [facility] ED NOTEon 09-26-2023 ED NOTE HNO ID: [id number] Author: TETE BEJARANO RN Service: ? Author Type: Registered Nurse Type: ED Notes Filed: 09/26/2023 10:06 Note Text: Pt discharged with verbal and written instructions. Verbalized understanding. Instructed pt to follow up with PCP. No acute distress. Instructed pt to follow up immediately if conditions worsens, verbalized understanding. Normal [facility] ED PROV NOTEon 09-26-2023 ED PROV NOTE HNO ID: [id number] Author: CHANTAL LA MD Service: ? Author Type: Physician Type: ED Provider Notes Filed: 09/26/2023 15:53 Note Text: ED Provider Note Patient Name: Hollie Stover : 1960 SERVICE DATE: 09/26/23 History Patient presents with: Laceration: Left forearm, cut this morning with mold Patient is a 62-year-old male coming in with left forearm laceration. He was at work this morning he rubbed it up against a metal plate. Tetanus is greater than years. He is right-hand dominant. He denies any other injuries. PAST MEDICAL HISTORY Diagnosis Date Arthritis History of transfusion Nonspecific elevation of levels of transaminase or lactic acid dehydrogenase (LDH) Other psoriasis and similar disorders Psoriasis Psoriatic arthritis (HCC) Sleep apnea PAST SURGICAL HISTORY Procedure Laterality Date COLONOSCOPY FLX DX W/COLLJ SPEC WHEN PFRMD 04/18/2013 Colonoscopy LIVER BX FAMILY HISTORY Problem Relation Age of Onset Diabetes Father Ischemic Heart Disease Father other (unknown) Mother Social History Tobacco Use Smoking status: Former Types: Cigarettes Quit date: 09/14/2009 Years since quittin.0 Smokeless tobacco: Never Vaping Use Vaping Use: Never used Substance and Sexual Activity Alcohol use: Yes Comment: Socially Drug use: No Sexual activity: Not on file ALLERGIES No Known Allergies Review of Systems Constitutional: Negative for fever. Respiratory: Negative for shortness of breath. All other systems reviewed and are negative. Physical Exam Vitals [09/26/23 0812] BP Pulse Temp Temp src Resp SpO2 Weight Height 136/85 77 36.1 ?C (97 ?F) Temporal 18 97 % 95.3 kg (210 lb) 1.778 m (5' 10) Physical Exam Vitals reviewed. HENT: Head: Normocephalic. Mouth/Throat: Mouth: Mucous membranes are moist. Musculoskeletal: Arms: Comments: Laceration of the left forearm approximately 8 cm still pulses sensation are intact. Radial ulnar and median nerves all intact. Cap refill is normal. Skin: General: Skin is warm. Neurological: General: No focal deficit present. Mental Status: He is alert. Sensory: No sensory deficit. Psychiatric: Mood and Affect: Mood normal. Diagnostic Testing ED Labs Ordered and Reviewed - No data to display Procedures ED Course / Clinical Impression Clinical Impressions as of 09/26/23 1551 Laceration of left forearm, initial encounter Work related injury MDM / Disposition / Plan Patient's tetanus was updated. An x-ray was obtained showing no radiopaque foreign body. The laceration was sutured. Patient tolerated this well. Will be placed on Keflex for 5 days. He is advised to follow with primary care for suture removal in 7 to 10 days as well as [facility] health for work-related injury patient's nerves radial ulnar and median nerves strength are all normal in the lower extremity not concern for tendon involvement at this time. Differential Diagnoses - Laceration - Tendon laceration is less likely for the following reason(s): HANDP not suggestive - Foreign body is less likely for the following reason(s): HANDP not suggestive and no evidence on imaging Management Radiology Reports XR FOREARM GENERAL 2V AP/LAT LEFT Final Result IMPRESSION: No radiopaque foreign body or radiographic evidence of acute osseous injury. Soft tissue laceration. Travel Registered Nurse Nicu: RACHELLE Transcribe Date/Time: Sep 26 2023 9:30A Dictated by : CURT ASKEW MD This examination was interpreted and the report reviewed and electronically signed by: CURT ASKEW MD on Sep 26 2023 9:31AM EST Disposition The patient was discharged. Counseled patient regarding radiology results and suspected diagnosis. SIGNATURE: Chantal La MD - CHANTAL LA 09/26/23 1553 [facility] XR FOREARM 2V AP/LAT LTon XR FOREARM 2V AP/LAT LT * * *Final Report* * * DATE OF EXAM: Sep 26 2023 9:13AM MDX [id number] - XR FOREARM 2V AP/LAT LT / PROCEDURE REASON: Trauma * * * * Physician Interpretation * * * * TITLE: XR FOREARM 2V AP/LAT LT CLINICAL INDICATION: Trauma. Rule out foreign body. TECHNIQUE: Portable frontal and lateral radiographs of the left forearm COMPARISON: None FINDINGS: Laceration of the mid to distal forearm. No radiopaque foreign body identified. No acute fracture or dislocation identified. IMPRESSION: No radiopaque foreign body or radiographic evidence of acute osseous injury. Soft tissue laceration. Travel Registered Nurse Nicu: RACHELLE Transcribe Date/Time: Sep 26 2023 9:30A Dictated by : CURT ASKEW MD This examination was interpreted and the report reviewed and electronically signed by: CURT ASKEW MD on Sep 26 2023 9:31AM EST [id number] [facility] 08-07-2023 CNPN Telephone (FMWADS) HOLLIE STOVER ([id number]) 1960 M Date Time Provider Department 08/07/23 CONI ROGERS FMWADS During your visit today, we recorded the following information about you: Chelsey Krishna LPN 08/07/2023 12:56 PM Signed Received 08/07/2023 from [facility]. Placed in provider's inbox for review. Route to PA for scanning. Allergies As of Date: 08/07/2023 (No Known Allergies) Date Reviewed: 02/23/2023 Reviewed by: Savita Fonseca MA - Fully Assessed Reason for Visit: Received Outside Medical Records [[id number]] Cmt: [facility] Visit summary Hospital follow up 08/03/2023 Prescriptions as of 08/07/2023 - oxyCODONE-acetaminophe n (PERCOCET) 5-325 mg tablet Take 1 tablet by mouth every 6 hours as needed for pain. - CPAP/BIPAP/OTHER Type .CPAPSettings into a note to see current settings/supplies/DME information. - CPAP Initiate Auto PAP @ 5-20 cm of water with humidification. Mask (per patient preference) optional chin strap (if indicated) , filters, tubing, humidifier and lifetime supplies. - secukinumab (COSENTYX) 150 mg/mL injection Inject 150 mg subcutaneously once every month. Problem List As Of Date 08/07/2023 Noted Resolved PAT (Obstructive Sleep Apnea) [G47.33] 10/04/2009 Cervicalgia [M54.2] 11/24/2009 Nail Dystrophy [L60.3] 11/24/2009 Psoriasis [L40.9] 02/26/2011 Nonspecific elevation of levels of transaminase* Psoriatic arthropathy (HCC) [L40.50] 08/13/2015 Long-term use of immunosuppressant medication [*11/21/2016 Nodule of left palm [R22.32] 11/21/2016 Encounter Status:Closed by CHELSEY KRISHNA on 08/07/23 Normal [facility] Cardiology Visit Reporton Cardiology Visit Report [facility] [address] [place] [address] OFFICE VISIT Date of Service: 08/03/23 MR#: [id number] Acct: [id number] Name: HOLLIE STOVER Jr. Rep #: [id number] : 1960 Provider: Dr. Raj ariza MD Age/Sex: 62/M Location: [facility] Status: Signed HPI HPI History of Present Illness Details: Patient is a pleasant 62-year-old white male. He was initially seen in the hospital 07/19/2023. He presented with chest discomfort that was consistent with accelerating angina. His symptoms resolved and his troponin went up significantly but did not reach positive area. The original was single digit and it went up to 17 on his delta troponin. He had a stress test where his chest symptoms increase but he did not meet criteria for ischemic EKG changes and his wall motion could not be completely visualized on echo. He continues to have some fleeting chest discomfort and a left heart catheterization was performed. His left main had a 30% distal stenosis he had a 40% ostial LAD lesion the ostial circumflex was 50 to 60% stenosed and he had mild right coronary artery luminal irregularities. His EF was estimated 65%. The patient does not smoke his blood pressures been adequately controlled he is not diabetic his lipids were elevated and he was instituted on rosuvastatin 20 mg daily on 07/21/2023. His blood pressure is slightly elevated in the office today but historically while he was hospitalized it was well-controlled in the 110 systolic range. He is due to get fasting lipids and liver function test done in another 5 weeks. The patient denies any recurrence of his chest discomfort. We are were never totally certain of the etiology. 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 Intake Vital Signs 07/19/23 07:39 08/03/23 08:29 Height 5 ft 10 in 5 ft 10 in Weight: 211 lb BMI 30.2 BP 145/83 H Blood Pressure Location Rt brachial Position Sitting Respiration 18 Pulse 64 Pulse Source Monitor Pulse Oximetry (%) 93 Oxygen Delivery Method room air Intake Visit Reasons: S/P 07/18 [facility] [employer] Required: No Accompanied by: Is patient in pain?: No Allergies No Known Allergies Allergy (Verified 08/03/23 08:31) Medications ???Medication ???Instructions ???Recorded ???Confirmed ???Type secukinumab 75 mg/0.5 mL 150 mg subcut Q4W 02/18/21 08/03/23 History subcutaneous syringe (Cosentyx) rosuvastatin 20 mg tablet 20 mg PO DAILY #30 tabs 07/19/23 08/03/23 Rx Ejection fraction %: 65 PFSH Medical History Amputation of right ring finger Arthritis CAD (coronary artery disease) Chest pain Psoriasis Surgical History History of carpal tunnel surgery Family History Other Heart disease Social History Smoking Status: Former smoker alcohol intake: current substance use type: does not use caffeine: Yes ROS Const Const: Positive for fatigue; Negative for weakness ENT ENT: Negative for dizziness or balance problems Cardio Chest Pain: No Palpitations: No Edema: None Muscle aches with walking: None Resp Respiratory: Negative for SOB with activity, SOB at rest or SOB orthopnea SOB lying down GI GI: Negative nausea, vomiting or heartburn Musc Musc: Negative for muscle weakness or balance problems Neuro Neuro: Negative for dizziness, lightheadedness, near syncope, syncope or weakness Endo Endo: Positive for fatigue Cardiology Exam Const Appearance: cooperative, healthy appearing and no acute distress Head Head: normal to inspection Full conklin Eyes General: appearance normal, both eyes and all related structures Neck Neck: no JVD Carotids: Negative bruit Chest Chest inspection: normal inspection of the chest Auscultation: Bilateral: Clear to Auscultation Cardio Rate: regular rate Rhythm: regular rhythm Heart sounds: S1 normal and S2 normal; Negative rub, gallop or murmur GI GI: normal to inspection Neuro General: patient alert and patient oriented x3 Skin Skin: no rashes or lesions noted Extremities Lower Extremity Edema: None: Bilateral Psych Psychological: normal affect Supplemental Info Supplemental Information Labs: No Data to Display Diagnostics: Electrocardiogram Stress Echocardiogram Cardiac Catheterization Chest X-Ray Pulmonary: No Data to Display Past Visits: Cardiology Visit 08/03/23 A (more content not included)... Normal [facility] Lipid Profileon 08-03-2023 CHOL Normal 200 [facility] Comment on above: Result Comment: DOC DONT WANT THEM DONE YET Performed By: #### L 500.3400, L500.4100 #### [facility] [address] [place], [address] HDL Normal [facility] Comment on above: Result Comment: DOC DONT WANT THEM DONE YET The drugs N-Acetylcysteine and Metamizole may falsely depress this assay. Performed By: #### L 500.3400, L500.4100 #### [facility] [address] [place], [address] LDL Normal 0-130 [facility] Comment on above: Result Comment: DOC DONT WANT THEM DONE YET Performed By: #### L 500.3400, L500.4100 #### [facility] [address] [place], [address] TRIG Normal [facility] Comment on above: Result Comment: DOC DONT WANT THEM DONE YET The drugs N-Acetylcysteine and Metamizole may falsely depress this assay. Performed By: #### L 500.3400, L500.4100 #### [facility] [address] [place], [address] VLDL Normal 5-40 [facility] Comment on above: Result Comment: DOC DONT WANT THEM DONE YET Performed By: #### L 500.3400, L500.4100 #### [facility] [address] [place], [address] Liver Profileon 08-02-2023 ALB Normal 3.2-5.0 [facility] Comment on above: Result Comment: DOC DONT WANT THEM DONE YET Performed By: #### L 500.3400, L500.4100 #### [facility] [address] [place], [address] ALK P Normal 45-117 [facility] Comment on above: Result Comment: DOC DONT WANT THEM DONE YET Performed By: #### L 500.3400, L500.4100 #### [facility] [address] [place], [address] ALT Normal 16-61 [facility] Comment on above: Result Comment: DOC DONT WANT THEM DONE YET Performed By: #### L 500.3400, L500.4100 #### [facility] [address] [place], [address] AST Normal 15-37 [facility] Comment on above: Result Comment: DOC DONT WANT THEM DONE YET Performed By: #### L 500.3400, L500.4100 #### [facility] [address] [place], [address] D BILI Normal 0.00-0.30 [facility] Comment on above: Result Comment: DOC DONT WANT THEM DONE YET Performed By: #### L 500.3400, L500.4100 #### [facility] [address] [place], [address] T BILI Normal 0.20-1.00 [facility] Comment on above: Result Comment: DOC DONT WANT THEM DONE YET Performed By: #### L 500.3400, L500.4100 #### [facility] [address] [place], [address] T PROT Normal 6.4-8.2 [facility] Comment on above: Result Comment: DOC DONT WANT THEM DONE YET Performed By: #### L 500.3400, L500.4100 #### [facility] [address] [place], [address] CNPNon 07-24-2023 CNPN Telephone (MIREYA) HOLLIE STOVER ([id number]) 1960 M Date Time Provider Department 07/24/23 CONI ROGERS During your visit today, we recorded the following information about you: Chelsey Krishna LPN 07/24/2023 3:47 PM Signed Received 07/24/2023 from [facility]. Placed in provider's inbox for review. Route to [place] for scanning. Vicky Espinoza LPN 07/24/2023 4:54 PM Signed Received EKG report from [facility] 07/19/23. Placed in provider's inbox for review. Route to [place] scanning Allergies As of Date: 07/24/2023 (No Known Allergies) Date Reviewed: 02/23/2023 Reviewed by: Savita Fonseca MA - Fully Assessed Reason for Visit: Received Outside Medical Records [[id number]] Cmt: [facility] Er Summary 07/19/2023 Cardiac Cath report Prescriptions as of 07/24/2023 - oxyCODONE-acetaminophe n (PERCOCET) 5-325 mg tablet Take 1 tablet by mouth every 6 hours as needed for pain. - CPAP/BIPAP/OTHER Type .CPAPSettings into a note to see current settings/supplies/DME information. - CPAP Initiate Auto PAP @ 5-20 cm of water with humidification. Mask (per patient preference) optional chin strap (if indicated) , filters, tubing, humidifier and lifetime supplies. - secukinumab (COSENTYX) 150 mg/mL injection Inject 150 mg subcutaneously once every month. 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 Rep #: [id number] : 1960 62 From: Raj Llanes MD Attending Dr: Dr. Lorenza George MD Statu s: DEP SDC Ordering Dr: Kaden Cuevas DO Date: 07/19/23 Location: ED Sex: M C Admitted: Test Reason : CP Blood Pressure : / mmHG Vent. Rate : 092 BPM Atrial Rate : 092 BPM P-R Int : 174 ms QRS Dur : 090 ms QT Int : 340 ms P-R-T Axes : 027 -02 009 degrees QTc Int : 420 ms Normal sinus rhythm Normal ECG Confirmed by Raj Llanes ([id number]), editorial clerk FATUMA HAMMOND ([id number]) on 07/20/2023 10:17:01 AM Referred By: Confirmed By:Raj Llanes 07/20/23 1017 Date Raj Llanes MD CC: Dr. Kaden Cuevas DO; Dr. Florentino Rogers MD; Dr. Lorenza George MD Signed Normal [facility] Basic Metabolic Profile (BMP )on 07-19-2023 BUN/CRE 14.5 RATIO Normal 10-20 [facility] Comment on above: Order Comment: 1Y Performed By: #### L 100.0100, L500.2500, L501.5425 ####[facility] [address] [place], [address] CA,Total 9.0 mg/dL Normal 8.5-10.1 [facility] Comment on above: Order Comment: 1Y Performed By: #### L 100.0100, L500.2500, L501.5425 ####[facility] [address] [place], [address] Chloride [Moles/Vol] 104 mmol/L Normal 98-107 [facility] Comment on above: Order Comment: 1Y Performed By: #### L 100.0100, L500.2500, L501.5425 ####[facility] [address] [place], [address] CO2 [Moles/Vol] 28.0 mmol/L Normal 21.0-32.0 [facility] Comment on above: Order Comment: 1Y Performed By: #### L 100.0100, L500.2500, L501.5425 ####[facility] [address] [place], [address] Creatinine [Mass/Vol] 0.90 mg/dL Normal 0.70-1.30 [facility] Comment on above: Order Comment: 1Y Result Comment: The validity of the calculated GFR GFRAA in patients over 70 years has not been determined. Clinical correlation is essential. Performed By: #### L 100.0100, L500.2500, L501.5425 ####[facility] [address] [place], [address] ECRCL 97.11 ml/min Normal [facility] Comment on above: Order Comment: 1Y Performed By: #### L 100.0100, L500.2500, L501.5425 ####[facility] [address] [place], [address] EST GFR - AA 110 mL/min Normal >60 [facility] Comment on above: Order Comment: 1Y Result Comment: Afri can [place]uran GFR Calc Performed By: #### L 100.0100, L500.2500, L501.5425 ####[facility] [address] [place], [address] GAP 5 Normal 5-15 [facility] Comment on above: Order Comment: 1Y Performed By: #### L 100.0100, L500.2500, L501.5425 ####[facility] [address] [place], [address] GFR/1.73 sq M.predicted among non-blacks MDRD (S/P/Bld) [Vol rate/Area] 91 mL/min/{1.73_m2} Normal >60 [facility] Comment on above: Order Comment: 1Y Result Comment: Non- GFR Calc Performed By: #### L 100.0100, L500.2500, L501.5425 ####[facility] [address] [place], [address] Glucose [Mass/Vol] 149 mg/dL High 74-106 [facility] Comment on above: Order Comment: 1Y Result Comment: Fast ing Glucose result greater than or equal to 126 mg/dL suggests DIABETES MELLITUS per A.D.A. criteria. Performed By: #### L 100.0100, L500.2500, L501.5425 ####[facility] [address] [place], [address] Potassium [Moles/Vol] 4.1 mmol/L Normal 3.5-5.1 [facility] Comment on above: Order Comment: 1Y Performed By: #### L 100.0100, L500.2500, L501.5425 ####[facility] [address] [place], [address] Sodium [Moles/Vol] 137 mmol/L Normal 136-145 [facility] Comment on above: Order Comment: 1Y Performed By: #### L 100.0100, L500.2500, L501.5425 ####[facility] [address] [place], [address] Urea nitrogen [Mass/Vol] 13 mg/dL Normal 7-18 [facility] Comment on above: Order Comment: 1Y Performed By: #### L 100.0100, L500.2500, L501.5425 ####[facility] [address] [place], [address] CBC W/Diff, Automatedon 05-2 -2023 Absolute Lymph 1.43 X10 3/uL Normal 0.83-4.51 [facility] Comment on above: Performed By: #### L 100.0100, L500.2500, L501.5425 #### [facility] [address] [place], [address] Absolute Neut 4.7 X10 3/uL Normal 2.0-7.7 [facility] Comment on above: Performed By: #### L 100.0100, L500.2500, L501.5425 #### [facility] [address] [place], [address] Basophils/100 WBC (Bld) 0.4 % Normal 0-1 [facility] Comment on above: Performed By: #### L 100.0100, L500.2500, L501.5425 #### [facility] [address] [place], [address] Eosinophils/100 WBC (Bld) 3.6 % Normal 0-5 [facility] Comment on above: Performed By: #### L 100.0100, L500.2500, L501.5425 #### [facility] [address] [place], [address] Erythrocyte distribution width (RBC) [Ratio] 12.9 % Normal 11.6-14.6 [facility] Comment on above: Performed By: #### L 100.0100, L500.2500, L501.5425 #### [facility] [address] [place], [address] Hematocrit (Bld) [Volume fraction] 46.0 % Normal 40-54 [facility] Comment on above: Performed By: #### L 100.0100, L500.2500, L501.5425 #### [facility] [address] [place], [address] Hemoglobin (Bld) [Mass/Vol] 14.8 g/dL Normal 13.0-16.5 [facility] Comment on above: Performed By: #### L 100.0100, L500.2500, L501.5425 #### [facility] [address] [place], [address] IG% 0.400 Normal 0.0-0.9 [facility] Comment on above: Result Comment: IG% - Immature Granulocytes (promyelocytes, myelocytes and metamyelocytes) > 1% indicates that a LEFT SHIFT is Present. Performed By: #### L 100.0100, L500.2500, L501.5425 #### [facility] [address] [place], [address] Lymphocytes/100 WBC (Bld) 20.0 % Normal 19-41 [facility] Comment on above: Performed By: #### L 100.0100, L500.2500, L501.5425 #### [facility] [address] [place], [address] MCH (RBC) [Entitic mass] 29.1 pg Normal 27.0-32.0 [facility] Comment on above: Performed By: #### L 100.0100, L500.2500, L501.5425 #### [facility] [address] [place], [address] MCHC (RBC) [Mass/Vol] 32.2 g/dL Normal 32-36 [facility] Comment on above: Performed By: #### L 100.0100, L500.2500, L501.5425 #### [facility] [address] [place], [address] MCV (RBC) [Entitic vol] 90.4 fL Normal 80-94 [facility] Comment on above: Performed By: #### L 100.0100, L500.2500, L501.5425 #### [facility] [address] [place], [address] Monocytes/100 WBC (Bld) 10.1 % High 0-10 [facility] Comment on above: Performed By: #### L 100.0100, L500.2500, L501.5425 #### [facility] [address] [place], [address] Neutrophils/100 WBC (Bld) 65.5 % Normal 47-70 [facility] Comment on above: Performed By: #### L 100.0100, L500.2500, L501.5425 #### [facility] [address] [place], [address] Nucleated RBC (Bld) [#/Vol] 0 10*3/uL Normal 0-5 [facility] Comment on above: Performed By: #### L 100.0100, L500.2500, L501.5425 #### [facility] [address] [place], [address] Platelet mean volume (Bld) [Entitic vol] 11.2 fL Normal 6.2-12.0 [facility] Comment on above: Performed By: #### L 100.0100, L500.2500, L501.5425 #### [facility] [address] [place], [address] Platelets (Bld) [#/Vol] 190 10*3/uL Normal 150-450 [facility] Comment on above: Performed By: #### L 100.0100, L500.2500, L501.5425 #### [facility] [address] [place], [address] RBC (Bld) [#/Vol] 5.09 10*6/uL Normal 4.6-6.2 [facility] Comment on above: Performed By: #### L 100.0100, L500.2500, L501.5425 #### [facility] [address] [place], [address] RDW SD 42.6 fl Normal 35.1-43.9 [facility] Comment on above: Performed By: #### L 100.0100, L500.2500, L501.5425 #### [facility] [address] [place], [address] WBC (Bld) [#/Vol] 7.2 10*3/uL Normal 4.4-11.0 [facility] Comment on above: Performed By: #### L 100.0100, L500.2500, L501.5425 #### [facility] [address] [place], [address] Cardiac Cath Diagnosticon Cardiac Cath Diagnostic [facility] Imaging Services [address] [place] [address] Cardiac Cath Diagnostic MR#: [id number] Acct: [id number] Name: CKHOLLIE Jr. Rep #: [id number] : 1960 62 From: Lorenza George MD PCP: Dr. Florentino Rogers MD Status:REG ER Patient Name: HOLLIE STOVER Study Date: 07/19/2023 Performing: Lynda George MD Ht: 70 inches 177.8 cm : 1960 Wt: 209.3 lbs 94.8 kg Age: 62 Gender: male BSA: 2.13 PROCEDURE(S) PERFORMED DC02-([id number])[facility]/COR CLINICAL PROFILE AND INDICATIONS Heart Failure: None CAD Presentations: Unstable angina. CONCLUSIONS CAD as described. RECOMMENDATIONS Medical therapy for coronary artery disease at this time DESCRIPTION OF PROCEDURE The patient arrived to the procedure lab. The risks and benefits of the procedure as well as a full description of our services here and current unavailability of surgical backup were fully explained to the patient and/or their significant other prior to the catheterization. The Timeout was completed, verifying the correct patient and procedure. The patient's procedural site was prepped and draped in the usual fashion. Local anesthetic was given subcutaneously to right radial region with Lidocaine 2%. Using a modified Seldinger technique, arterial access was obtained via the right radial artery, a 6Fr sheath was inserted. Left Coronary Artery selective angiography was performed in multiple views using a 5 Fr. JL3.5 catheter. Right Coronary Artery selective angiography was then performed in multiple views using a 5 Fr. JR 4 catheter.The arterial sheath was pulled and a TR Band was applied for hemostasis CORONARY ANGIOGRAPHY DOMINANCE: Right Dominant LEFT MAIN: 30% distal stenosis LEFT ANTERIOR DESCENDING ARTERY: OSTIAL LAD: 40 % eccentric Stenosis CIRCUMFLEX ARTERY: OSTIAL CIRC: 50-60 % Stenosis RIGHT CORONARY ARTERY: Mild luminal irregularities COMPLICATIONS No Complications PROCEDURE MEDICATIONS Versed 1 mg IV Fentanyl 50 mcg IV Oxygen: 2 L/min via nasal cannula Heparin given IA 07/19/2023 14:08:19 Verapamil 2.5mg, Ntg 100mcgs, 3000 units of Heparin given IA 07/19/2023 14:08:19 SUMMARY OF HEMODYNAMIC DATA Time AIR REST ECG 13:53:04 AO 88/71 (79) SA 14:10:44 AO 113/82 (97) 14:14:14 Signed By Lynda George MD On 07/19/2023 14:44:54 Signed By Lynda Geogre MD On 07/19/2023 14:44:01 Signed By Lynda George MD On 07/19/2023 14:43:01 Lynda George MD 07/19/23 1445 Date Lorenza George MD Cosigner Signature: Date (if indicated) CC: Dr. Kaden Cuevas DO; Dr. Florentino Rogers MD; Dr. Lorenza George MD Date Dictated: 07/19/23 1404 Date Transcribed: 07/19/23 1444 Travel Registered Nurse Nicu: NN Signed Normal [facility] Chest 1 View (Portable)on Chest 1 View (Portable) [facility] Imaging Services [address] [place] [address] [id number] Chest 1 View (Portable) MR#: [id number] Acct: [id number] Name: HOLLIE STOVER JrFahad Rep #: [id number] : 1960 62 From: Brandon Sifuentes MD PCP: Dr. Florentino Rogers MD Status: REG ER Study: Chest 1 View (Portable) Date of Exam: 07/19/23 Exam# [id number] Ordering Dr: Kaden Cuevas DO [id number] EXAM: XR CHEST, 1 VIEW CLINICAL INDICATION: chest pain TECHNIQUE: Frontal view of the chest. COMPARISON: XR Chest dated 08/14/2012 FINDINGS: LUNGS AND PLEURAL SPACES: Normal. No consolidation or edema. No pneumothorax. No effusion. HEART: Normal heart size. MEDIASTINUM: No mediastinal or hilar mass. BONES/JOINTS: No acute abnormality. RAD/Chest 1 View (Portable) IMPRESSION: No acute cardiopulmonary abnormality. No interval change. Electronically Signed: Brandon Sifuentes MD at 8:39 EDT , CC: Dr. Kaden Cuevas DO; Dr. Florentino Rogers MD Travel Registered Nurse Nicu: Signed Normal [facility] Consultation - Cardiologyon 07-19-2023 Consultation - Cardiology [facility] Medical Records Department [address] [place] [address] Consultation - Cardiology 07/19/23 1404 MR#: [id number] Acct: [id number] Name: HOLLIE STOVER Jr. Rep #: [id number] : 1960 62 From: Raj Llanes MD PCP: Dr. Florentino Rogers MD Status:REG ER Location: ED Assessment Plan Assessment/Plan (1) Chest pain: QUALIFIERS: Chest pain type: precordial pain Qualified Code(s): R07.2 - Precordial pain PLAN: second troponin went up to 17 His initial enzymes were single digit isThe patient's chest discomfort started with heavy activity earlier this morning. and he went to stress test which he symptoms increased he had did not meet criteria for ischemia EKG changes his wall motion was not completely visualized on the echo. He continues to have some of the chest discomfort although it is resolved back to baseline after the stress test. 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 I recommend the patient undergo a left heart catheterization the procedure risk/benefit and alternatives were explained to the patient who voiced understanding and agrees to proceed. PLAN: Plan 1. Recommend urgent left heart catheterization HPI Consult Data Date of Consult: 07/19/23 HPI Narrative Reason for Consultation: Chest pain and abnormal stress test. HPI Narrative: HOLLIE STOVER, is a 62 M who presents to the emergency room with [facility] with an episode of chest symptoms in his lower anterior thorax that started at approximately 0500 hrs. 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 The patient never experienced this in the past. His cardiac isoenzymes were negative x 2 and his EKG did not show any acute ischemic changes. Patient's only known past medical history was psoriasis. He was a former smoker. There is also a family of heart disease but is uncertain if this was valvular or atherosclerotic. Patient denies any PND orthopnea and denies any lower extremity edema. He denies any claudication. A stress echo was performed today where the patient went 8 minutes on the treadmill he had increasing chest symptoms on the treadmill did not meet diagnostic criteria for ischemic changes on the EKG his wall motion as best could be ascertained was unremarkable for any wall motion abnormalities. [facility] Medical History Psoriasis Home Medications ???Medication ???Instructions ???Recorded ???Last Taken ???Type secukinumab 75 mg/0.5 mL 150 mg subcut Q4W 02/18/21 Unknown History subcutaneous syringe (Cosentyx) Allergy/AdvReac Type Severity Reaction Status Date / Time No Known Allergies Allergy Verified 07/19/23 07:42 Family History Other Heart disease Social History Smoking Status: Former smoker alcohol intake: current alcohol intake frequency: 0-2 drinks per day Alcohol type: beer ROS Constitutional Constitutional: Reports as per HPI Eyes Eyes: Reports systems reviewed and no addt'l complaints, except as documented ENT HEENT: Reports systems reviewed and no addt'l complaints, except as documented Cardiovascular Cardiovascular: Reports as per HPI Respiratory/Chest Respiratory/Chest: Reports as per HPI Gastrointestinal Gastrointestinal: Reports systems reviewed and no addt'l complaints, except as documented Genitourinary Genitourinary: Reports systems reviewed and no addt'l complaints, except as documented Musculoskeletal Musculoskeletal: Reports systems reviewed and no addt'l complaints, except as documented Integumentary Integumentary: Reports systems reviewed and no addt'l complaints, except as documented Neurologic Neurologic: Reports systems reviewed and no addt'l complaints, except as documented Psychiatric Psychiatric: Reports systems reviewed and no addt'l complaints, except as documented Endocrine Endocrinology: Reports systems reviewed and no addt'l complaints, except as documented Hematologic/Lymphatic Hematologic/Lymphatic: Reports systems reviewed and no addt'l complaints, except as documented Allergic/Immunologic Allergic/Immunologic: Reports systems reviewed and no addt'l complaints, except as documented Risk Stratification Risk Stratification Applicable: Yes Age >/= 64: No >/= 3 CAD Risk Factors (HTN, HLD, DM, family hx of CAD, or current smoker): No Aspirin Use in the Past 7 Days: No Severe Angina (>/= episodes in 24 hours): Yes EKG ST Changes >/= 0.5mm: No Positive Cardiac Marker: No WELL[place] Risk Stratification Score: 1 WELL[place] % Risk: 5% Risk Charges/Coding Visit Charges Inpatient E M: 97100 Init Hosp L2 Objective Mando (more content not included)... Normal [facility] Emergency Department Summary on 07-19-2023 Emergency Department Summary [facility] Medical Records Department [address] [place] [address] Emergency Department Summary 07/19/23 MR#: [id number] Acct: [id number] Name: HOLLIE STOVER JrFahad Rep #: [id number] : 1960 62 From: Kaden Cuevas DO PCP: Dr. Florentino Rogers MD Status:REG ER Location: [address] History of Present Illness Chief Complaint: Chest Pain Informant: patient and family Narrative Narrative: 62-year-old male presenting to the emergency room with chest pain. Patient notes a history of psoriasis. He states he is otherwise a very healthy individual. He is non-smoker. 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 Last evening around 0500 hrs. he began to feel a knot in his lower mid chest. Nonradiating. States it was constant for about an hour until he was driving home when it started to ease up but is still present. He notes no associated symptoms like arm jaw radiation, nausea, fatigue, dyspnea. He has had this once before which led to a stress test that was negative. He states it has been many years since that has happened. He notes no change in his exercise tolerance. [facility] Medical History Psoriasis Home Medications ???Medication ???Instructions ???Recorded ???Last Taken ???Type secukinumab 75 mg/0.5 mL 150 mg subcut Q4W 02/18/21 Unknown History subcutaneous syringe (Cosentyx) Allergy/AdvReac Type Severity Reaction Status Date / Time No Known Allergies Allergy Verified 07/19/23 07:42 Family History Other Heart disease Social History Smoking Status: Former smoker alcohol intake: current alcohol intake frequency: 0-2 drinks per day Alcohol type: beer ROS ROS ED Constitutional Constitutional ED: Denies chills, fever(s) or weight loss Eyes Eyes: Denies change in vision or diplopia ENT ENT ED: Denies ear pain, rhinorrhea or sore throat Cardiovascular Cardiovascular: Reports as per HPI and chest pain; Denies orthopnea, palpitations or racing heartbeat Respiratory/Chest Respiratory/Chest: Denies cough, dyspnea or orthopnea Gastrointestinal Gastrointestinal: Denies abdominal pain, diarrhea, nausea or vomiting Genitourinary Genitourinary ED: Denies dysuria, hematuria or urinary frequency Musculoskeletal Musculoskeletal: Denies arthralgias, back pain, myalgias or neck pain Integumentary Denies abscess or rash Neurologic Neurologic: Denies headache(s) or weakness Psychiatric Psychiatric: Denies anxiety, depression, suicidal ideation or suicidal thoughts Endocrine Endocrinology: Denies polydipsia, polyphagia or polyuria Allergic/Immunologic Allergic/Immunologic ED: Denies mouth swelling, tongue swelling or urticaria EXAM Physical Exam Const Vital Signs: 07/19/23 07:39 07/19/23 07:42 07/19/23 08:39 Temperature 98.4 F Temperature Source Oral Pulse Rate 92 85 Respiratory Rate 18 17 Respiratory Effort Normal Non-Labored Blood Pressure 137/78 H 115/73 Blood Pressure Mean 97 87 Pulse Ox 95 96 Oxygen Delivery Method Room Air Room Air 07/19/23 09:00 07/19/23 10:00 07/19/23 11:00 Temperature Temperature Source Pulse Rate 82 83 83 Respiratory Rate 16 23 H 18 Respiratory Effort Blood Pressure 123/87 H 117/81 H 123/75 H Blood Pressure Mean 99 93 91 Pulse Ox 99 95 96 Oxygen Delivery Method Room Air Room Air 07/19/23 13:00 07/19/23 13:39 Temperature 97.5 F L Temperature Source Pulse Rate 85 86 Respiratory Rate 16 19 H Respiratory Effort Blood Pressure 129/72 H 135/82 H Blood Pressure Mean 91 99 Pulse Ox 96 94 Oxygen Delivery Method Room Air Positive well nourished and well developed General Appearance ED: well developed HEENT Reports normocephalic, head/scalp atraumatic and moist mucous membranes Eyes PERRL and EOMs intact bilaterally Neck no lymphadenopathy, supple and no JVD Resp normal respiratory effort and clear to auscultation bilaterally Cardio regular rate, regular rhythm and no murmurs GI normal to inspection, nondistended, normoactive bowel sounds and non-tender Palpation: soft Back/Spine no CVA tenderness and normal ROM Extremity normal to inspection General Extremety ED: Negative for edema General Extremity: Negative for edema Neuro oriented x3 and CN's II-XII intact bilaterally Sensorium / Orientation: alert Motor Exam: strength 5/5 throughout Psych mental status grossly normal Mood Affect: Negative for depressed or tearful Skin no rashes or lesions noted and no wounds MDM MDM MDM Narrative Medical decision making narrative: Differential diagnosis includes but not limited to aortic dissection acute berta (more content not included)... Normal [facility] L501.4020on 07-19-2023 TROPONIN-I HS 56 pg/mL Normal 3.0-78.0 [facility] Comment on above: Result Comment: Plea se Note: New Test Units and Gender Specific Reference Ranges. For more information see Policy Stat Procedure [place] High Sensitivity Troponin (TNIH) and attachments. Performed By: #### L 501.4020 #### [facility] [address] [place], [address] L501.5425on 07-19-2023 TROPONIN-I HS 17 pg/mL Normal 3.0-78.0 [facility] Comment on above: Order Comment: 1Y Result Comment: Plea se Note: New Test Units and Gender Specific Reference Ranges. For more information see Policy Stat Procedure [place] High Sensitivity Troponin (TNIH) and attachments. Performed By: #### L 100.0100, L500.2500, L501.5425 ####[facility] [address] [place], [address] Stress Test Echo w/o Contras ton 05-23-2024 Stress Test Echo w/o Contrast [facility] [address] [place] [address] Stress Test Echo w/o Contrast MR#: [id number] Acct: [id number] Name: HOLLIE STOVER Jr. Rep #: [id number] : 1960 62 From: Lorenza George MD Primary Care: Dr. Florentino Rogers MD Status: [facility] Ordering Dr: Kaden Cuevas DO Sex: M C Reason For Study: CHEST PAIN Stress Results Protocol: Manjit Protocol Maximum Predicted HR: 157 bpm Target HR: 133 bpm % Maximum Predicted HR: 90 % DurationHeart Rate Stage (mm:ss) (bpm) BP Comment BASELINE 78 120/70 STAGE 1 3:00 105 128/70 STAGE 2 3:00 125 152/78INCREASED SOB, WITH DULL PAIN IN CHEST STAGE 3 2:00 142 182/82DISCOMFORT IN CHEST THE SAME RECOVERY 103 130/82 Stress Duration: 8:00 mm:ss Maximum Stress HR: 142 bpm Baseline Echocardiogram Findings The estimated ejection fraction is 65 %. Postexercise EF is 70%. Stress Echo Wall motion Data Resting WM Intermediate WM Stress WM Resting Wall Motion Wall Motion Stress No regional wall motion No regional wall motion abnormalities noted. abnormalities noted. EKG Data The baseline ECG displays normal sinus rhythm. No significant ischemic changes. Symptoms with Stress The patient experinced Mild, dull chest pain with exercise . ECHO/Stress Test Echo w/o Contrast Interpretation Summary The estimated ejection fraction is 65 %. Stress echo is negative for exercise-induced EKG or echocardiographic changes of ischemia. The test is positive for exercise-induced chest discomfort Functional capacity is normal for age Ordering Physician: Kaden Cuevas Performed By: Tova Machado RCS 07/24/23 1124 Date Lorenza George MD CC: Dr. Kaden Cuevas DO; Dr. Florentino Rogers MD; Dr. Lorenza George MD Date Dictated: 07/19/23 1202 Date Transcribed: 07/24/23 112 Travel Registered Nurse Nicu: Signed [facility] CNOVon 02-23-2023 [facility] Office Visit (ORMDNA ) HOLLIE STOVER ([id number]) 1960 M Date Time Provider Department 02/23/23 10:00 AM KADEN DURON During your visit today, we recorded the following information about you: Kaden Duron PA-C 02/23/2023 10:47 AM Signed POST OP Mr. Stover presents today for his 2 week visit from: right carpal tunnel release on 02/06/[address] Tinsley. Established Patient, Follow Up, and Post Op of the Right Wrist History: PAIN EVALUATION 02/23/2023 0954 Pain Level: 5 Pain Location: Wrist-Right Description: Tightness;Stiffness;Du ll;Aching;Incision Duration Amount of Time: 17 Duration Units: Days Frequency: Intermittent Intervention/Comfort measure: Relaxation;Reposition He is doing well postoperatively. Patients rates his condition as improving. Patient states their pre-operative numbness is resolved. The patient denies warmth, discharge, drainage, fevers, chills, sweats. He reports compliance with wound care. 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 He is requesting RTW date of 03/05/23 with light duty and lifting restriction. The patient reports stiffness in both hands. He is not interested in occupational therapy at this time but he is interested in beginning home exercises. He reports no change in past medical AND surgical history, medications, allergies, social history, family history and review of systems since last visit, with the exception of the following: None Review of Systems All other systems reviewed and are negative. Physical Examination: Right hand: Appropriate postop appearance No evidence of erythema, warmth, discharge or drainage Incision clean/dry/intact Sutures intact no tenderness about the incision Positive median, ulna, and radial nerve function Positive distal pulses Able to make loose fist and extend all fingers PROCEDURE: Sutures removed from right hand and steri-strips applied. This was well-tolerated without complication. Assessment and Plan: 62 year old male 2 weeks S/P right carpal tunnel release progressing as expected in the immediate post operative period. Gradually advance activities as tolerated. RTW letter provided Discussed home exercises and hand exercise sheet was provided today. The patient will notify us if he would like to initiate occupational therapy Post op care discussed, all questions answered Follow up LADAN Duron PA-C Allergies As of Date: 02/23/2023 (No Known Allergies) Date Reviewed: 02/23/2023 Reviewed by: Savita Fonseca MA - Fully Assessed Reason for Visit: Established Patient [175] Follow Up [171] Post Op [174] Primary Visit Diagnosis:S/P carpal tunnel release [Z98.890] Prescriptions as of 02/27/2023 - oxyCODONE-acetaminophe n (PERCOCET) 5-325 mg tablet Take 1 tablet by mouth every 6 hours as needed for pain. - CPAP/BIPAP/OTHER Type .CPAPSettings into a note to see current settings/supplies/DME information. - CPAP Initiate Auto PAP @ 5-20 cm of water with humidification. Mask (per patient preference) optional chin strap (if indicated) , filters, tubing, humidifier and lifetime supplies. - secukinumab (COSENTYX) 150 mg/mL injection Inject 150 mg subcutaneously once every month. 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 Follow-up and Disposition History for Encounter Date Provider Department Center 02/23/2023 [id number] Letter Text Letter Text Encounter Status:Closed by KADEN DURON on 02/23/23 Normal [facility] ANES POSTPROC EVALon 023 ANES POSTPROC EVAL HNO ID: [id number] Author: Chris Magallanes DO Service: Anesthesiology Author Type: Anesthesiologist Type: Anesthesia Postprocedure Evaluation Filed: 02/06/2023 5:14 PM Note Text: POST ANESTHESIA EVALUATION NOTE : 1960 Procedure Summary Date: 02/06/23 Room / Location: [place] [address] / [facility] Anesthesia Start: 1551 Anesthesia Stop: 1635 Procedure: DECOMPRESSION NERVE MEDIAN CARPAL TUNNEL (Right: Wrist) Diagnosis: Carpal tunnel syndrome of right wrist (Carpal tunnel syndrome of right wrist [G56.01]) Surgeons: Stephania Tinsley DO Responsible Provider: Chris Magallanes DO Anesthesia Type: MAC ASA Status: 3 Anesthesia Type: MAC Last Vitals Vitals Value Taken Time BP 137/73 02/06/23 1700 Temp 36.3 ?C (97.3 ?F) 02/06/23 1633 Pulse 68 02/06/23 1703 Resp 16 02/06/23 1703 SpO2 94 % 02/06/23 1703 Vitals shown include unfiled device data. Post Anesthesia Patient Status Patient Evaluation: PACU. PACU/ICU Patient Condition: stable. Anticipated Disposition: phase 2 then home. Neurological Status: aware and responsive. Pulmonary Status: breathing comfortably on room air Airway Control: returned to baseline unsupported. Cardiovascular Status: stable. Pain Management: clinically adequate - multimodal analgesia pain management approach Postoperative Hydration: acceptable. Intraoperative Events: no significant anesthesia events Post Operative Nausea/Vomiting Status: no significant post operative nausea or vomiting Recommendation: continue current plan of care and further care per PACU/ICU/floor team. Anesthesia Observations No Documentation SIGNATURE: Chris Magallanes DO PATIENT NAME: Hollie Stover DATE: February 06, 2023 TIME: 5:14 PM CSN: [id number] [facility] ANES PRE-OPon 02-06-2023 ANES PRE-OP HNO ID: [id number] Author: Min Gonzalez MD Service: ? Author Type: Anesthesiologist Type: Anesthesia Preprocedure Evaluation Filed: 02/06/2023 2:47 PM Note Text: ANESTHESIOLOGY DAY OF SURGERY NOTE : 1960 Procedure Information Date/Time: 02/06/23 1449 Procedure: DECOMPRESSION NERVE MEDIAN CARPAL TUNNEL (Right: Wrist) Location: [place] OR01 / [place] Surgeons: Stephania Tinsley DO Estimated body mass index is 30.13 kg/m? as calculated from the following: Height as of 01/16/23: 177.8 cm (5' 10). Weight as of 01/16/23: 95.3 kg (210 lb). Most recent hematocrit and potassium results: Hematocrit 44.3 03/09/2021 Potassium 4.1 12/29/2022 Relevant Problems ANESTHESIA (+) PAT (obstructive sleep apnea) (-) At risk for hemorrhage associated with anticoagulation therapy (-) Delayed emergence from anesthesia PULMONARY (+) PAT (obstructive sleep apnea) (-) Asthma Other (+) Psoriatic arthropathy (HCC) I - PHYSICAL EVALUATION AIRWAY Patient intubated: No. Tracheostomy tube not present Mallampati: II. TM distance: >3 FB. Neck ROM: full ROM without neurological symptoms. Mouth opening: adequate. Short neck: no. Thick neck: no DENTAL Dental findings: poor dentition. Additional exam findings: yes. CARDIOVASCULAR Rhythm: regular Rate: normal PULMONARY Breath sounds clear to auscultation. II - ANESTHESIA PLAN ASA Score: 3 Anesthetic Plan: MAC The patient is not a current smoker. NPO Status: adequate Beta Titus Monitoring Plan Monitoring plan: standard ASA. Post Procedure Analgesic Plan Postoperative analgesic plan: multimodal analgesia. Informed Consent Anesthetic risks, benefits, alternatives, personnel and consent discussed: yes. Patient / Responsible Libertarian agrees to proceed: yes Patient / Surrogate agrees to blood products: Yes DNR status not reviewed with patient and/or family prior to surgery. Significant changes in the patient condition since the History and Physical, not otherwise documented in primary service progress note: no. Potential Anesthesia issues that may suggest increased risk of complications or contraindication to planned procedure: none. Vitals Value Taken Time BP 158/99 02/06/23 1356 Pulse Resp 20 02/06/23 1356 Temp 36.3 ?C (97.3 ?F) 02/06/23 1356 SpO2 94 % 02/06/23 1356 Facility-Administered Medications as of 02/06/2023 Medication Dose Route Frequency - lidocaine (PF) 10 mg/mL (1 %) 1-2 mg injection (XYLOCAINE) 0.1-0.2 mL INTRADERMAL PRN - lactated ringers iv infusion 5-30 mL/hr INTRAVENOUS CONTINUOUS - NaCl 0.9% iv flush bag 20 mL INTRAVENOUS PRN - ceFAZolin iv piggyback 2 g in D5W (iso-osmotic) 100 mL (ANCEF) 2 g INTRAVENOUS Pre-Op Once - acetaminophen 650 mg tab(s) (TYLENOL) 650 mg ORAL Pre-Op Once - [COMPLETED] acetaminophen 1,000 mg tab(s) (TYLENOL) 1,000 mg ORAL Pre-Op Once - [COMPLETED] promethazine 12.5 mg tab(s) (PHENERGAN) 12.5 mg ORAL Pre-Op Once Outpatient Medications as of 02/06/2023 Medication Sig - CPAP/BIPAP/OTHER Type .CPAPSettings into a note to see current settings/supplies/DME information. - CPAP Initiate Auto PAP @ 5-20 cm of water with humidification. Mask (per patient preference) optional chin strap (if indicated) , filters, tubing, humidifier and lifetime supplies. - oxyCODONE-acetaminophe n (PERCOCET) 5-325 mg tablet Take 1 tablet by mouth every 6 hours as needed for pain. - secukinumab (COSENTYX) 150 mg/mL injection Inject 150 mg subcutaneously once every month. I have interviewed and examined the patient. I have reviewed the medical record and/or the pre-anesthesia evaluation, pertinent labs, and test results. This contains updated information obtained within 48 hours of Surgery/Procedure. SIGNATURE: Min Gonzalez MD PATIENT NAME: Hollie Stover DATE: February 06, 2023 TIME: 2:47 PM [id number] HOLLIE STOVER ([id number]) 1960 M Date Time Provider Department 02/06/23 STEPHANIA TINSLEY During your visit today, we recorded the following information about you: Jodi Crowley 02/06/2023 4:03 PM Signed Patient has been identified by name and date of : Yes, Date 02/06/2023 Time 4:00pm Type of form: Medical Necessity Form received via: Walk in When form is completed, notify by phone that form is ready for pick up worker. Form has been forwarded to: PSR / Med Sec Jodi Crowley [facility] 02/28/2023 3:37 PM Signed Forms were completed 02/14/23. Allergies As of Date: 02/06/2023 (No Known Allergies) Date Reviewed: 02/06/2023 Reviewed by: Rosy Stewart, HERNAN - Fully Assessed Reason for Visit: Forms [913] Prescriptions as of 02/28/2023 - oxyCODONE-acetaminophe n (PERCOCET) 5-325 mg tablet Take 1 tablet by mouth every 6 hours as needed for pain. - CPAP/BIPAP/OTHER Type .CPAPSettings into a note to see current settings/supplies/DME information. - CPAP Initiate Auto PAP @ 5-20 cm of water with humidification. Mask (per patient preference) optional chin strap (if indicated) , filters, tubing, humidifier and lifetime supplies. - secukinumab (COSENTYX) 150 mg/mL injection Inject 150 mg subcutaneously once every month. 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] 11/24/2009 Psoriasis [L40.9] 02/26/2011 Nonspecific elevation of levels of transaminase* Psoriatic arthropathy (HCC) [L40.50] 08/13/2015 Long-term use of immunosuppressant medication [*11/21/2016 Nodule of left palm [R22.32] 11/21/2016 Encounter Status:Closed by MARBELLA HERNANDEZ DAVID on 02/28/23 [facility] OPERATIVE NOon 02-06-2023 OPERATIVE NO HNO ID: [id number] Author: Stephania Tinsley DO Service: Orthopaedic Surgery Author Type: Physician Type: Operative Report Filed: 02/06/2023 4:35 PM Note Text: OPERATIVE/PROCEDURE REPORT LOG ID: [id number] SURGERY/PROCEDURE DATE: 02/06/2023 INCISION/PROCEDURE START TIME: 4:07 PM INCISION CLOSE/PROCEDURE END TIME: 4:23 PM SURGEON(S)/PROCEDURALI ST(S) AND POLICE SERGEANT PRECINCT(S): Surgeon(s) and Role: * Stephania Tinsley DO - Primary No Additional Staff SURGERY/PROCEDURE(S): Right carpal tunnel release ANESTHESIA: Monitored Anesthesia Care SURGERY/PROCEDURE DETAILS: OPERATIVE/PROCEDURE REPORT LOG ID: [id number] Surgery/Procedure Date: 02/06/2023 Incision/Procedure Start Time: 4:07 PM Incision Close/Procedure End Time: 4:23 PM Surgeon(s)/Procedurali st(s) and Organic Section Technical Lead(s): Surgeon(s) and Role: * Stephania Tinsley DO - Primary No Additional Staff Procedure(s): OPERATION: Right carpal tunnel release, open. ANESTHESIA: local. PREOPERATIVE DIAGNOSIS: Right carpal tunnel syndrome. POSTOPERATIVE DIAGNOSIS: Right carpal tunnel syndrome. OPERATIVE INDICATIONS: This is a pleasant 62 year old male who had worsening, numbness, and tingling. His electrodiagnostic showed carpal tunnel syndrome. He exhausted conservative management and in the office, we discussed the risks, benefits, alternatives, and potential complications involving carpal tunnel release and he wished to pursue surgical intervention. OPERATIVE FINDINGS: Consistent with postoperative diagnosis. OPERATIVE PROCEDURE: On February 06, 2023, the patient was clearly identified in the preoperative area and marked accordingly on the Right palm by myself. He was taken to the operative suite and placed in the supine position with an armboard on the Right. All other bony landmarks were appropriately padded in standard fashion. The arm was then sterilely prepped and draped in standard fashion after miguel block. An appropriate time-out was conducted and all in the room were in agreement, signed consent form was on the chart. A longitudinal incision was made with in line with the third web space from 1 cm distal of the wrist crease to Huitron's cardinal line. I used Lexx Rakes to retract the soft tissues. Bipolar electrocautery was used for hemostasis. I bluntly dissected down with Littler scissors to distal edge of the transverse carpal ligament until a flash of fat was noted. I directly divided distal edge of the transverse carpal ligament with a #15 blade. Attention was then focused on the proximal portion and I used Littler scissors to bluntly dissect off the volar surface of the transverse carpal ligament. A carpal tunnel and median nerve protection guide was slid directly under the ligament for dilation and a second time for appropriate positioning, this was passed freely without any resistance. Subsequently, I selected a mini meniscotome [place] blade and slid this in the protective guide, completely dividing the transverse carpal ligament. Lexx rakes were used to view up the wound to visualize for complete release and a [place] elevator was used to palpate for complete release. hemostasis was observed. The wound was copiously irrigated with normal saline and I closed with 3-0 nylons in horizontal mattress fashion for a total of 3. Xeroform gauze, sterile 4 x 4 gauze, Webril padding, and a Bias roll was used for final bandage. There were no complications during the procedure. The patient was safely transferred to the Postanesthetic Care Unit in stable condition. I performed the entire procedure. SIGNATURE: Stephania Tinsley DO PATIENT NAME: Hollie Stover DATE: February 06, 2023 TIME: 4:34 PM PAGER/CONTACT #: PRE-OP/PRE-PROCEDURE DIAGNOSIS: right cts POST-OP/POST-PROCEDURE DIAGNOSIS: Same as Preop ESTIMATED BLOOD LOSS: 0 ml SPECIMENS: None IMPLANTABLE DEVICES: NONE DRAINS: None COMPLICATIONS: None CLOSURE TECHNIQUE: Primary PARTICIPATION IN SURGERY/PROCEDURE: I/primary surgeon/proceduralist performed the procedure with assistance. No qualified resident/fellow was available. SIGNATURE: Stephania Tinsley DO PATIENT NAME: Hollie Stover DATE: February 06, 2023 TIME: 4:34 PM [facility] 01-29-2023 [facility] Office Visit (ORMDNA ) HOLLIE STOVER ([id number]) 1960 M Date Time Provider Department 01/29/23 10:00 AM KADEN DURON During your visit today, we recorded the following information about you: Kaden Duron PA-C 01/29/2023 10:41 AM Addendum POST OP Mr. Stover presents today for his 10-14 day visit from: left carpal tunnel release on 01/16/[address] Tinsley. Established Patient, Follow Up, and Post Op of the Left Wrist History: Patient reports no pain. He is doing well postoperatively. Patients rates his condition as improving. Patient states their pre-operative numbness is resolved. The patient denies warmth, discharge, drainage, fevers, chills, sweats. He reports compliance with wound care. He is scheduled for right CTR next week. Review of Systems All other systems reviewed and are negative. Physical Examination: Left hand: Appropriate postop appearance No evidence of erythema, warmth, discharge or drainage Incision clean/dry/intact Sutures intact no tenderness about the incision Positive median, ulna, and radial nerve function Positive distal pulses Able to make fist and extend all fingers PROCEDURE: Sutures removed from left hand. This was well-tolerated without complication. Assessment and Plan: 62 year old male S/P left carpal tunnel release at normal post-operative stage of recovery. Gradually advance activities as tolerated. Post op care discussed, all questions answered Right CTR next week Follow up as scheduled Kaden Duron PA-C Addendum: Shortly after leaving the office the patient returned reporting wound dehiscence. The incision was re-examined and there is now superficial dehiscence of the distal portion of the incision. No drainage upon palpation. Steri-strips were applied to the incision to re-approximate the skin followed by non-adherent dressing and Coban. This was well tolerated without complication. Wound care discussed. Follow up as scheduled, sooner PRN. Allergies As of Date: 01/29/2023 (No Known Allergies) Date Reviewed: 01/29/2023 Reviewed by: Brandi Pierre MA - Fully Assessed Reason for Visit: Established Patient [175] Follow Up [171] Post Op [174] Primary Visit Diagnosis:S/P carpal tunnel release [Z98.890] Prescriptions as of 01/29/2023 - oxyCODONE-acetaminophe n (PERCOCET) 5-325 mg tablet Take 1 tablet by mouth every 6 hours as needed for pain. - CPAP/BIPAP/OTHER Type .CPAPSettings into a note to see current settings/supplies/DME information. - CPAP Initiate Auto PAP @ 5-20 cm of water with humidification. Mask (per patient preference) optional chin strap (if indicated) , filters, tubing, humidifier and lifetime supplies. - secukinumab (COSENTYX) 150 mg/mL injection Inject 150 mg subcutaneously once every month. 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] 11/24/2009 Psoriasis [L40.9] 02/26/2011 Nonspecific elevation of levels of transaminase* Psoriatic arthropathy (HCC) [L40.50] 08/13/2015 Long-term use of immunosuppressant medication [*11/21/2016 Nodule of left palm [R22.32] 11/21/2016 Encounter Status:Closed by KADEN DURON on 01/29/23 [facility] ANES POSTPROC EVALon 023 ANES POSTPROC EVAL HNO ID: [id number] Author: Ekta Dale MD Service: Anesthesiology Author Type: Anesthesiologist Type: Anesthesia Postprocedure Evaluation Filed: 01/16/2023 3:34 PM Note Text: POST ANESTHESIA EVALUATION NOTE : 1960 Procedure Summary Date: 01/16/23 Room / Location: [place] OR02 / [place] Anesthesia Start: 1116 Anesthesia Stop: 1142 Procedure: DECOMPRESSION NERVE MEDIAN CARPAL TUNNEL (Left: Wrist) Diagnosis: Carpal tunnel syndrome of left wrist (Carpal tunnel syndrome of left wrist [G56.02]) Surgeons: Stephania Tinsley DO Responsible Provider: Ekta Dale MD Anesthesia Type: MAC ASA Status: 3 Anesthesia Type: MAC Last Vitals Vitals Value Taken Time BP 110/69 01/16/23 1215 Temp 36 ?C (96.8 ?F) 01/16/23 1146 HR SpO2 67 01/16/23 1146 Resp 14 01/16/23 1219 SpO2 94 % 01/16/23 1219 Vitals shown include unvalidated device data. Post Anesthesia Patient Status Patient Evaluation: PACU. PACU/ICU Patient Condition: stable. Anticipated Disposition: phase 2 then home. Neurological Status: aware and responsive. Pulmonary Status: breathing comfortably on room air Airway Control: returned to baseline unsupported. Cardiovascular Status: stable. Pain Management: clinically adequate - multimodal analgesia pain management approach Postoperative Hydration: acceptable. Intraoperative Events: no significant anesthesia events Post Operative Nausea/Vomiting Status: no significant post operative nausea or vomiting Recommendation: continue current plan of care. Anesthesia Observations No Documentation SIGNATURE: Ekta Dale MD PATIENT NAME: Hollie Stover DATE: January 16, 2023 TIME: 3:34 PM CSN: [id number] [facility] ANES PRE-OPon 01-16-2023 ANES PRE-OP HNO ID: [id number] Author: Ekta Dale MD Service: Anesthesiology Author Type: Anesthesiologist Type: Anesthesia Preprocedure Evaluation Filed: 01/16/2023 11:10 AM Note Text: ANESTHESIOLOGY DAY OF SURGERY NOTE : 1960 Procedure Information Date/Time: 01/16/23 1243 Procedure: DECOMPRESSION NERVE MEDIAN CARPAL TUNNEL (Left: Wrist) Location: [place] [address] / [place] Surgeons: Stephania Tinsley DO Estimated body mass index is 30.13 kg/m? as calculated from the following: Height as of this encounter: 177.8 cm (5' 10). Weight as of this encounter: 95.3 kg (210 lb). Most recent hematocrit and potassium results: Hematocrit 44.3 03/09/2021 Potassium 4.1 12/29/2022 Relevant Problems ANESTHESIA (+) PAT (obstructive sleep apnea) PULMONARY (+) PAT (obstructive sleep apnea) Other (+) Psoriatic arthropathy (HCC) I - PHYSICAL EVALUATION AIRWAY Patient intubated: No. Tracheostomy tube not present Mallampati: II. TM distance: >3 FB. Neck ROM: full ROM without neurological symptoms. Mouth opening: adequate. Short neck: no. Thick neck: no DENTAL Dental findings: teeth intact. Additional exam findings: yes. CARDIOVASCULAR Rhythm: regular PULMONARY Breath sounds clear to auscultation. II - ANESTHESIA PLAN ASA Score: 3 Anesthetic Plan: MAC The patient is not a current smoker. NPO Status: adequate Beta Titus Monitoring Plan Monitoring plan: standard ASA. Post Procedure Analgesic Plan Postoperative analgesic plan: multimodal analgesia. Informed Consent Anesthetic risks, benefits, alternatives, personnel and consent discussed: yes. Patient / Responsible Libertarian agrees to proceed: yes Patient / Surrogate agrees to blood products: blood products not planned DNR status not reviewed with patient and/or family prior to surgery. Significant changes in the patient condition since the History and Physical, not otherwise documented in primary service progress note: no. Potential Anesthesia issues that may suggest increased risk of complications or contraindication to planned procedure: none. Vitals Value Taken Time BP 135/79 01/16/23 1057 Pulse 75 01/16/23 1057 Resp 16 01/16/23 1057 Temp 36.6 ?C (97.9 ?F) 01/16/23 1057 SpO2 98 % 01/16/23 1057 Facility-Administered Medications as of 01/16/2023 Medication Dose Route Frequency - lidocaine (PF) 10 mg/mL (1 %) 1-2 mg injection (XYLOCAINE) 0.1-0.2 mL INTRADERMAL PRN - lactated ringers iv infusion 5-30 mL/hr INTRAVENOUS CONTINUOUS - NaCl 0.9% iv flush bag 20 mL INTRAVENOUS PRN - ceFAZolin iv piggyback 2 g in D5W (iso-osmotic) 100 mL (ANCEF) 2 g INTRAVENOUS Pre-Op Once - [COMPLETED] acetaminophen 1,000 mg tab(s) (TYLENOL) 1,000 mg ORAL Pre-Op Once - [COMPLETED] promethazine 12.5 mg tab(s) (PHENERGAN) 12.5 mg ORAL Pre-Op Once Outpatient Medications as of 01/16/2023 Medication Sig - CPAP/BIPAP/OTHER Type .CPAPSettings into a note to see current settings/supplies/DME information. - CPAP Initiate Auto PAP @ 5-20 cm of water with humidification. Mask (per patient preference) optional chin strap (if indicated) , filters, tubing, humidifier and lifetime supplies. - secukinumab (COSENTYX) 150 mg/mL injection Inject 150 mg subcutaneously once every month. I have interviewed and examined the patient. I have reviewed the medical record and/or the pre-anesthesia evaluation, pertinent labs, and test results. This contains updated information obtained within 48 hours of Surgery/Procedure. SIGNATURE: Ekta Dale MD PATIENT NAME: Hollie Stover DATE: January 16, 2023 TIME: 11:10 AM CSN: [id number] [facility] OPERATIVE NOon 01-16-2023 OPERATIVE NO HNO ID: [id number] Author: Stephania Tinsley DO Service: Orthopaedic Surgery Author Type: Physician Type: Operative Report Filed: 01/16/2023 12:03 PM Note Text: OPERATIVE/PROCEDURE REPORT LOG ID: [id number] SURGERY/PROCEDURE DATE: 01/16/2023 INCISION/PROCEDURE START TIME: 11:24 AM INCISION CLOSE/PROCEDURE END TIME: 11:41 AM SURGEON(S)/PROCEDURALI ST(S) AND POLICE SERGEANT PRECINCT(S): Surgeon(s) and Role: * Stephania Tinsley DO - Primary Physician Organic Section Technical Lead: Catrina Maldonado PA-C SURGERY/PROCEDURE(S): Left carpal tunnel release ANESTHESIA: Monitored Anesthesia Care SURGERY/PROCEDURE DETAILS: OPERATIVE/PROCEDURE REPORT LOG ID: [id number] Surgery/Procedure Date: 01/16/2023 Incision/Procedure Start Time: 11:24 AM Incision Close/Procedure End Time: 11:41 AM Surgeon(s)/Procedurali st(s) and Organic Section Technical Lead(s): Surgeon(s) and Role: * Stephania Tinsley DO - Primary Physician Organic Section Technical Lead: Catrina Maldonado PA-C Procedure(s): OPERATION: Left carpal tunnel release, open. ANESTHESIA: local. PREOPERATIVE DIAGNOSIS: Left carpal tunnel syndrome. POSTOPERATIVE DIAGNOSIS: Left carpal tunnel syndrome. OPERATIVE INDICATIONS: This is a pleasant 62 year old male who had worsening, numbness, and tingling. His electrodiagnostic showed carpal tunnel syndrome. He exhausted conservative management and in the office, we discussed the risks, benefits, alternatives, and potential complications involving carpal tunnel release and he wished to pursue surgical intervention. OPERATIVE FINDINGS: Consistent with postoperative diagnosis. OPERATIVE PROCEDURE: On January 16, 2023, the patient was clearly identified in the preoperative area and marked accordingly on the Left palm by myself. He was taken to the operative suite and placed in the supine position with an armboard on the Left. All other bony landmarks were appropriately padded in standard fashion. The arm was then sterilely prepped and draped in standard fashion after miguel block. An appropriate time-out was conducted and all in the room were in agreement, signed consent form was on the chart. A longitudinal incision was made with in line with the third web space from 1 cm distal of the wrist crease to Huitron's cardinal line. I used Lexx Rakes to retract the soft tissues. Bipolar electrocautery was used for hemostasis. I bluntly dissected down with Littler scissors to distal edge of the transverse carpal ligament until a flash of fat was noted. I directly divided distal edge of the transverse carpal ligament with a #15 blade. Attention was then focused on the proximal portion and I used Littler scissors to bluntly dissect off the volar surface of the transverse carpal ligament. A carpal tunnel and median nerve protection guide was slid directly under the ligament for dilation and a second time for appropriate positioning, this was passed freely without any resistance. Subsequently, I selected a mini meniscotome [place] blade and slid this in the protective guide, completely dividing the transverse carpal ligament. Lexx rakes were used to view up the wound to visualize for complete release and a [place] elevator was used to palpate for complete release. hemostasis was observed. The wound was copiously irrigated with normal saline and I closed with 3-0 nylons in horizontal mattress fashion for a total of 3. Xeroform gauze, sterile 4 x 4 gauze, Webril padding, and a Bias roll was used for final bandage. There were no complications during the procedure. The patient was safely transferred to the Postanesthetic Care Unit in stable condition. I performed the entire procedure. SIGNATURE: Stephania Tinsley DO PATIENT NAME: Hollie Stover DATE: January 16, 2023 TIME: 12:03 PM PAGER/CONTACT #: PRE-OP/PRE-PROCEDURE DIAGNOSIS: left cts POST-OP/POST-PROCEDURE DIAGNOSIS: Same as Preop ESTIMATED BLOOD LOSS: 0 ml SPECIMENS: None IMPLANTABLE DEVICES: NONE DRAINS: None COMPLICATIONS: None CLOSURE TECHNIQUE: Primary PARTICIPATION IN SURGERY/PROCEDURE: I/primary surgeon/proceduralist performed the procedure with assistance. No qualified resident/fellow was available. SIGNATURE: Stephania Tinsley DO PATIENT NAME: Hollie Stover DATE: January 16, 2023 TIME: 12:03 PM [facility] 01-10-2023 [facility] Telephone (FAMPST) HOLLIE STOVER ([id number]) 1960 M Date Time Provider Department 01/10/23 STEPHANIA TINSLEY During your visit today, we recorded the following information about you: Beryl Henson 01/10/2023 4:38 PM Signed Hollie Stover is calling Stephania Tinsley DO today to request a letter for patient employer with an estimated return date to work for upcoming surgery on 01/16/2023. The second surgery is 02/06/2023. Please indicate in that letter time off needed and estimation of return date. Please address to: [employer] Attn: To Whom it may concern Please call patient when letter is ready for pick-up at [phone], spouse Jenna Patient has been identified by name and birthdate. Duration of symptoms: N/A Person calling: spouse: Jenna Call patient at: on cell Was an appointment scheduled: No Closing statement: Results or non-symptom based questions: Thank you for calling [facility], your call will be returned within the next business day. Beryl L[facility] Catrina Maldonado PA-C 01/11/2023 3:41 PM Signed Unable to reach patient on the phone. I will try back at a later time. ELSA Parrish [place], PA-C 01/12/2023 2:27 PM Signed Spoke with patient on the phone. 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 We will write him off 3 weeks for each side with an estimated return to work date of 02/28/2023. Letter written and sent over [employer]. Catrina Maldonado PA-C Allergies As of Date: 01/10/2023 (No Known Allergies) Date Reviewed: 01/09/2023 Reviewed by: Jojo Kline APRN.TICKET MARKER - Fully Assessed Reason for Visit: Patient Question [9007] Letter [264] Prescriptions as of 01/12/2023 - CPAP/BIPAP/OTHER Type .CPAPSettings into a note to see current settings/supplies/DME information. - CPAP Initiate Auto PAP @ 5-20 cm of water with humidification. Mask (per patient preference) optional chin strap (if indicated) , filters, tubing, humidifier and lifetime supplies. - secukinumab (COSENTYX) 150 mg/mL injection Inject 150 mg subcutaneously once every month. 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 Author Type: Nurse Practitioner Type: HANDP Filed: 01/09/2023 3:21 PM Note Text: HISTORY AND PHYSICAL EXAMINATION SERVICE DATE: 01/09/2023 SERVICE TIME: 3:20 PM PRIMARY CARE PHYSICIAN: Coni Rogers MD Assessment Patient has the following medical conditions which may affect siomara-operative course: Psoriasis Assessment: Cosyntex, following [place] [facility] Psoriatic arthropathy (HCC) Assessment: otc analgesics as needed Ruggiero Activity Status Index: METS: Climb a flight of stairs or walk up a hill (5.50 METs) DASI Score: 5.5 Patient denies any chest pain or undue shortness of breath with the above physical activity. Clinical Frailty Scale: 3. Well, with treated comorbid disease STOP-Bang Score: Snores loudly Often feels tired, fatigued, or sleepy during the daytime Has been observed to stop breathing or choking/gasping during sleep Patient over 50 years old Has a large neck Male patient Denies having high blood pressure BMI less than or equal to 35 kg/m2 STOP-Bang Score: 6 [id number] Score: Age: <65 Sex: male CHF history: No Hypertension history: No Stroke/TIA/thromboembo lism history: No Vascular disease history: No Diabetes history: No [id number] Score: 0 ANESTHESIA FINDINGS: Intubation History: No history of difficult intubation Significant Anesthesia Considerations: none Airway History: No history of difficult airway I - PHYSICAL EVALUATION AIRWAY Patient intubated: No. Tracheostomy tube not present Mallampati: II. TM distance: >3 FB. Neck ROM: full ROM without neurological symptoms. Mouth opening: adequate. Short neck: no. Thick neck: yes Conklin present: yes Lip Bite Test: I Microretrognathia/Micr onagthia/Recessed Chin: No DENTAL Dental findings: teeth intact. II - ANESTHESIA PLAN Anesthetic Plan: other Beta Titus Monitoring Plan Post Procedure Analgesic Plan Informed Consent Anesthetic risks, benefits, alternatives, personnel and consent discussed: yes. Patient / Responsible Libertarian agrees to proceed: yes Patient / Surrogate agrees to blood products: blood products not planned Discussed the possibility of lip / dental damage: yes This is a virtual visit using [employer] video visit. It required patient-provider interaction for the medical decision making as documented below. REASON FOR VISIT: Hollie Stover is a 62 year old male who is scheduled for * No surgery found * at the request of Dr. Stephania Tinsley for consultation. My final recommendation will be communicated back to the requesting physician by way of shared medical record or letter. Subjective The patient has the following: ACTIVE PROBLEM LIST Pat (Obstructive Sleep Apnea) Cervicalgia Nail Dystrophy Psoriasis Nonspecific Elevation of Levels of Transaminase Or Lactic Acid Dehydrogenase (Ldh) Psoriatic Arthropathy (Hcc) Long-Term Use of Immunosuppressant Medication Nodule of Left Palm COVID-19 Immunization Status Overdue - Covid-19 Vaccine () Overdue since 10/27/2022 06/07/2022 Imm Admin: COVID-19 vaccine, age 12+ yr, bivalent (PFIZER-BIONTECH) 03/09/2021 Imm Admin: COVID-19 original vaccine, age 12+ yr, monovalent (PFIZER-BIONTECH - PURPLE TOP) 07/09/2020 Imm Admin: COVID-19 original vaccine, full dose, monovalent (MODERNA) Only the first 3 history entries have been loaded, but more history exists. CHIEF COMPLAINT: Pre-op exam HPI: Hollie Stover is a 62 year old seen for PAC due to scheduled above surgery because of CTS. 09/06/22, Dr. Tinsley HPI: Hollie Stover is a 61 year old male presenting today with bilateral wrist pain. Patient has been experiencing numbness/tingling for years now with no specific injury. Does have a history of working with his hands a lot. Pain history is noted as above. Previous Treatments: Ice: No Heat: No Brace: No NSAIDs: No Injections: No Surgeries: No Physical Therapy: No REVIEW OF SYSTEMS: General: No weight loss, malaise or fevers. Neurological: No history of TIA's, stroke, [employer] tumor, impaired sensorium, hemiplegia, paraplegia or quadraplegia. No neurological symptoms or problems. Respiratory: +former smoker 1.5ppd/30 years Positive for: obstructive sleep apnea and CPAP/BiPAP compliant. Negative for: asthma, COPD, pneumonia within 6 weeks, tobacco use and URI < 2 weeks. Cardiovascular: No history of HTN requiring medication, no history of angina, CHF, LA, cardiac surgery or stents. Denies rest pain, gangrene or revascularization/ampu tation for PVD. No history of cardiovascular symptoms or problems. GI: No history of GI symptoms or problems. No history of esophageal varices, recent ascites, or ETOH greater than 2 drinks per day. : No history of dysuria, frequency or incontinence, stones or chronic kidney disease. No diffic (more content not included)... [facility] Comprehensive metabolic 2000 panelon 12-29-2022 Albumin [Mass/Vol] 4.2 g/dL Normal 3.9-4.9 [facility] Comment on above: Order Comment: Speci men Type: BLOOD SPECIMENOrdering Facility: [facility] Address: [address] [place] [address] Performed By: #### 2 4323-8 ####[facility] [id number] [place] [address] [place] ALP [Catalytic activity/Vol] 75 U/L Normal 38-113 [facility] Comment on above: Order Comment: Speci men Type: BLOOD SPECIMENOrdering Facility: [facility] Address: [address] [place] [address] Performed By: #### 2 4323-8 ####[facility] [id number] [place] [address] [place] ALT [Catalytic activity/Vol] 53 U/L Normal 10-54 [facility] Comment on above: Order Comment: Speci men Type: BLOOD SPECIMENOrdering Facility: [facility] Address: [address] [place] [address] Performed By: #### 2 4323-8 ####[facility] [id number] [place] [address] [place] Anion gap [Moles/Vol] 8 mmol/L Low 9-18 [facility] Comment on above: Order Comment: Speci men Type: BLOOD SPECIMENOrdering Facility: [facility] Address: [address] [place] [address] [place] [address] Performed By: #### 2 4323-8 ####[facility] JUANITO [id number] [place] [address] [place] AST [Catalytic activity/Vol] 43 U/L High 14-40 [facility] Comment on above: Order Comment: Speci men Type: BLOOD SPECIMENOrdering Facility: [facility] Address: [address] [place] [address] [place] [address] Performed By: #### 2 4323-8 ####[facility] PIERREFABERKAREN [id number] [place] [address] [place] Bilirubin [Mass/Vol] 0.7 mg/dL Normal 0.2-1.3 [facility] Comment on above: Order Comment: Speci men Type: BLOOD SPECIMENOrdering Facility: [facility] Address: [address] [place] [address] [place] [address] Performed By: #### 2 4323-8 ####[facility] PIERREFABERKAREN [id number] [place] [address] [place] Calcium [Mass/Vol] 9.2 mg/dL Normal 8.5-10.2 [facility] Comment on above: Order Comment: Speci men Type: BLOOD SPECIMENOrdering Facility: [facility] Address: [address] [place] [address] [place] [address] Performed By: #### 2 4323-8 ####[facility] [id number] [place] [address] [place] Chloride [Moles/Vol] 104 mmol/L Normal 97-105 [facility] Comment on above: Order Comment: Speci men Type: BLOOD SPECIMENOrdering Facility: [facility] Address: [address] [place] [address] [place] [address] Performed By: #### 2 4323-8 ####[facility] [id number] [place] [address] [place] CO2 [Moles/Vol] 27 mmol/L Normal 22-30 [facility] Comment on above: Order Comment: Speci men Type: BLOOD SPECIMENOrdering Facility: [facility] Address: [address] [place] [address] Performed By: #### 2 4323-8 ####[facility] [id number] [place] [address] [place] Creatinine [Mass/Vol] 0.77 mg/dL Normal 0.73-1.22 [facility] Comment on above: Order Comment: Speci men Type: BLOOD SPECIMENOrdering Facility: [facility] Address: [address] [place] [address] Performed By: #### 2 4323-8 ####[facility] [id number] [place] [address] [place] Creatinine and Glomerular filtration rate.predicted panel (S/P/Bld) 101 mL/min/1.73m??? Normal >=60 [facility] Comment on above: Order Comment: Speci men Type: BLOOD SPECIMENOrdering Facility: [facility] Address: [address] [place] [address] Result Comment: Bela mated Glomerular Filtration Rate (eGFR) is calculated using the 2020 CKD-EPI creatinine equation. This equation utilizes serum creatinine, sex, and age as parameters. The creatinine assay has traceable calibration to isotope dilution-mass spectrometry. Refer to KDIGO guidelines for clinical interpretation. In patients with unstable renal function, e.g. those with acute kidney injury, the eGFR may not accurately reflect actual GFR. Performed By: #### 2 4323-8 ####[facility] [id number] [place] [address] [place] Glucose [Mass/Vol] 83 mg/dL Normal 74-99 [facility] Comment on above: Order Comment: Speci men Type: BLOOD SPECIMENOrdering Facility: [facility] Address: [address] [place] [address] Result Comment: The [place] Diabetes Association (ADA) provides guidance for cutoff values for fasting glucose and random glucose. The ADA defines fasting as no caloric intake for at least 8 hours. Fasting plasma glucose results between 100 to 125 mg/dL indicate increased risk for diabetes (prediabetes). Fasting plasma glucose results greater than or equal to 126 mg/dL meet the criteria for diagnosis of diabetes. In the absence of unequivocal hyperglycemia, results should be confirmed by repeat testing. In a patient with classic symptoms of hyperglycemia or hyperglycemic crisis, random plasma glucose results greater than or equal to 200 mg/dL meet the criteria for diagnosis of diabetes. Reference: Standards of Medical Care in Diabetes 2016, [place] [employer]. Diabetes Care. 2016.39(Suppl 1). Performed By: #### 2 4323-8 ####[facility]ENTER[facility]CLIA [id number] [place] [address] [place] Potassium [Moles/Vol] 4.1 mmol/L Normal 3.7-5.1 [facility] Comment on above: Order Comment: Willy sargent Type: BLOOD SPECIMENOrdering Facility: [facility] Address: [address] [place] [address] Performed By: #### 2 4323-8 ####[facility]ENTER[facility]CLIA [id number] [place] [address] [place] Protein [Mass/Vol] 6.9 g/dL Normal 6.3-8.0 [facility] Comment on above: Order Comment: Neyi men Type: BLOOD SPECIMENOrdering Facility: [facility] Address: [address] [place] [address] Performed By: #### 2 4323-8 ####[facility]CL[facility] [id number] [address] OF [place] Sodium [Moles/Vol] 139 mmol/L Normal 136-144 [facility] Comment on above: Order Comment: Willy sargent Type: BLOOD SPECIMENOrdering Facility: [facility] Address: [address] [place], [place] [id number] Performed By: #### 2 4323-8 ####[facility] [id number] [address] STATES OF [facility] Urea nitrogen [Mass/Vol] 16 mg/dL Normal 9-24 [facility] Comment on above: Order Comment: Willy sargent Type: BLOOD SPECIMENOrdering Facility: [facility] Address: [address] [place] [address] Performed By: #### 2 4323-8 ####[facility] [id number] [address] CNOVon 11-30-2022 CNOV Office Visit (OTOLMM ) HOLLIE STOVER ([id number]) 1960 M Date Time Provider Department 11/30/22 2:50 PM BUZZ SANTIAGO OTOLMM During your visit today, we recorded the following information about you: Buzz Santiago MD 11/30/2022 3:23 PM Signed This consult is seen at the kind request of Dr. Coni Rogers of family medicine, and my final recommendations will be communicated to the requesting health care provider by way of shared electronic medical record. This note is formatted with the impression and plan first and the history and physical to follow. IMPRESSION 62-year-old male with dysphonia possibly due to laryngopharyngeal reflux. RECOMMENDATION/PLAN I recommend a trial of Prilosec 40 mg once a day for 3 months. If patient's voice fail to improve, we can consider voice therapy with speech. I informed him that I would like to see him back if his voice gets worse. Chief Complaint Hoarseness History of Present Illness Hollie Stover is a 62 year old male present for evaluation of hoarseness of his voice. Patient stated that for the last 4 months, he has been having some hoarseness intermittently. It all started with what sounds like laryngitis where he lost his voice. Slowly, his voice return but has never gone back to normal. Patient denies any heartburn. He denies any dysphagia, odynophagia, sore throat, or shortness of breath. He is a former smoker with 82-oaod-idus smoking history. PAST MEDICAL HISTORY Diagnosis Date Arthritis History of transfusion Nonspecific elevation of levels of transaminase or lactic acid dehydrogenase (LDH) Other psoriasis and similar disorders Psoriasis Psoriatic arthritis (HCC) Sleep apnea PAST SURGICAL HISTORY Procedure Laterality Date COLONOSCOPY FLX DX W/COLLJ SPEC WHEN PFRMD 04/18/2013 Colonoscopy FAMILY HISTORY Problem Relation Age of Onset Diabetes Father Ischemic Heart Disease Father other (unknown) Mother CURRENT OUTPATIENT MEDICATIONS Current Outpatient Medications on File Prior to Visit Medication Sig CPAP/BIPAP/OTHER Type .CPAPSettings into a note to see current settings/supplies/DME information. CPAP Initiate Auto PAP @ 5-20 cm of water with humidification. Mask (per patient preference) optional chin strap (if indicated) , filters, tubing, humidifier and lifetime supplies. secukinumab (COSENTYX) 150 mg/mL injection Inject 150 mg subcutaneously once every month. No current facility-administered medications on file prior to visit. ALLERGIES ALLERGIES No Known Allergies The remainder of the patient's history and review of systems is on the outpatient questionaire which was reviewed by me and placed in the outpatient chart. PHYSICAL EXAMINATION Appearance: General examination of the patient's external face, head and neck reveals no abnormalities. The patient is not retrognathic The patient's voice is strong and clear and they communicate easily. Ears: Exam of the ears revealed normal appearing external auditory canals, tympanic membranes, and middle ears. No signs of infection or fluid were seen. Nose: External nasal exam showed external deviation of the nasal dorsum to the left. Throat: There were no lesions to visualization or palpation of the lips, cheeks, gums, floor of mouth, tongue, hard and soft palate, tonsillar pillars or posterior pharyngeal wall. Neck: Palpation of the neck revealed no adenopathy, salivary gland masses or asymmetry, or thyroid masses or enlargement. Procedure Flexible laryngoscopy was performed because of the following indication: hyperactive gag and dysphonia: After spraying the nose with 4% xylocaine and 0.5% oxymetazoline, the flexible scope was placed in a transnasal fashion. Bilateral septal deviation. The caudal septum was severely deviated to the left side and there is posterior deviation to the right. The nasopharynx, oropharynx, hypopharynx including the pyriform sinuses were normal. The base of tongue showed no gross lesions. The larynx itself showed mild erythema and interarytenoid edema. No obvious mucosal lesion noted. The vocal cords moved well bilaterally. There was supraglottic compression with phonation. Buzz Santiago MD Referring Provider: CONI ROGERS [[id number]] Allergies As of Date: 11/30/2022 (No Known Allergies) Date Reviewed: 11/30/2022 Reviewed by: Rosy Kay - Fully Assessed Reason for Visit: Consult [173] Cmt: Intermittent Hoarse voice quality, sx for the last 2 months Primary Visit Diagnosis:Laryngophary ngeal reflux (LPR) [K21.9] Other Visit Diagnosis:Hoarse voice quality [R49.0] Order(s):CONSULT TO ENT [9008] Order #: [id number]: 1 omeprazole (PRILOSEC) 40 mg capsuleTake 1 capsule by mouth once daily.Disp: 90 capsuleRfl: 0 Prescriptions as of 11/30/2022 - omeprazole (PRILOSEC) 40 mg capsule Take 1 capsule by mouth (more content not included)... Normal [facility] CNOVon 10-31-2022 CNOV Office Visit (FPWADS ) HOLLIE STOVER ([id number]) 1960 M Date Time Provider Department 10/31/22 2:20 PM CONI ROGERS During your visit today, we recorded the following information about you: Pulse Blood pressure Weight Height 87/minute 105/67 94.8 kg 1.778 m Coni Rogers MD 11/01/2022 10:11 AM Signed CHIEF COMPLAINT Patient presents with: F/U 3 Month HISTORY OF PRESENT ILLNESS Hollie Stover is a 61 year old male who presents here today for 3 month follow-up. I last saw this patient on 07/08/2022. Patient is accompanied by his . Hoarseness Patient states his voice has been hoarse, throat is scratchy He has endorsed these symptoms for the last 5-6 weeks Also reports frequent dry mouth. Not painful. Mood Patient is no longer taking his fluoxetine States he does not need a mind altering drug His mentions that he has been more irritable and angry, easily flies off the handle since stopping the drug . He stopped drinking for a bit and is now drinking again but less (few beers a day) Alcohol Use Patient is still drinking 3-4 beers/day every day He does not feel like this is significant enough that he needs to cut back/quit Carpal Tunnel Syndrome EMG study on 07/28/2022 that revealed severe bilateral CTS Scheduled for bilateral carpal tunnel release 01/16/2023 PAT Patient is using his CPAP, he can't tell if it really helps. States his has not noticed him snoring , still some fatigue History of Smoking Former 1ppd smoker Quit smoking in 2009 Health Maintenance Flu vaccine HIV screening Shingrix vaccine Covid-19 vaccine Labs reviewed. Past medical history, appointments, medications, allergies reviewed. REVIEW OF SYSTEMS General: Feels well, no fever, no chills. HEENT: + hoarseness, + scratchy throat, No sinus congestion, sleep apnea as above. Cardiac: No chest pain, palpitations Resp: No cough, wheeze, shortness of breath GI: No reflux symptoms, food intolerance, bowel changes. : No urinary frequency, dysuria. MS: + CTS, No swelling PAST MEDICAL HISTORY PAST MEDICAL HISTORY Diagnosis Date Arthritis History of transfusion Nonspecific elevation of levels of transaminase or lactic acid dehydrogenase (LDH) Other psoriasis and similar disorders Psoriasis Psoriatic arthritis (HCC) Sleep apnea PHYSICAL EXAMINATION BP 105/67 Pulse 87 Ht 177.8 cm (5' 10) Wt 94.8 kg (209 lb) SpO2 95% BMI 29.99 kg/m? General: Alert, well developed, well nourished, no distress, pleasant and cooperative. Heart: Regular rate and rhythm. Normal S1 and S2. No murmurs, rubs, or gallops. Lungs: Clear to auscultation bilaterally. No respiratory distress. No wheezes, rales, or rhonchi. Abdomen: Soft, non-tender, no distention. Extremities: Feet/ankles without edema, posterior tibial pulses full and symmetrical. Data Reviewed Component Latest Ref Rng AND Units 03/09/2021 WBC 3.70 - 11.00 k/uL 4.84 RBC 4.20 - 6.00 m/uL 4.77 Hemoglobin 13.0 - 17.0 g/dL 14.3 Hematocrit 39.0 - 51.0 % 44.3 MCV 80.0 - 100.0 fL 92.9 MCH 26.0 - 34.0 pG 30.0 MCHC 30.5 - 36.0 g/dL 32.3 RDW-CV 11.5 - 15.0 % 12.7 Platelet Count 150 - 400 k/uL 234 MPV 9.0 - 12.7 fL 12.0 Neut% % 59.7 Abs Neut (ANC) 1.45 - 7.50 k/uL 2.88 Lymph% % 25.2 Abs Lymph 1.00 - 4.00 k/uL 1.22 Cortland% % 9.5 Abs [place] <0.87 k/uL 0.46 Eosin% % 4.8 Abs Eosin <0.46 k/uL 0.23 Baso% % 0.8 Abs Baso <0.11 k/uL 0.04 Nucleated Reds 0 /100 WBC 0.0 Absolute nRBC <0.01 k/uL <0.01 Diff Type Auto Diff Protein, Total 6.3 - 8.0 g/dL 7.2 Albumin 3.9 - 4.9 g/dL 4.3 Calcium 8.5 - 10.2 mg/dL 9.5 Bilirubin, Total 0.2 - 1.3 mg/dL 0.6 Alkaline Phosphatase 38 - 113 U/L 74 AST 14 - 40 U/L 38 Glucose 74 - 99 mg/dL 97 BUN 9 - 24 mg/dL 13 Creatinine 0.73 - 1.22 mg/dL 0.71 (L) Sodium 136 - 144 mmol/L 140 Potassium 3.7 - 5.1 mmol/L 3.8 Chloride 97 - 105 mmol/L 104 CO2 22 - 30 mmol/L 22 Anion Gap 9 - 18 mmol/L 14 ALT 10 - 54 U/L 42 eGFR- >60 eGFR-All Other Races . >60 Cholesterol, Total <200 mg/dL 220 (H) Triglyceride <150 mg/dL 130 HDL Cholesterol >39 mg/dL 46 LDL Cholesterol <100 mg/dL 148 (H) Non HDL Cholesterol <130 mg/dL 174 (H) Fasting Time hrs Unknown VLDL Cholesterol <30 mg/dL 26 TC:HDL Ratio <5.10 4.78 LDL:HDL Ratio <2.54 3.22 (H) PSA Screening <2.60 ng/mL 1.35 Assessment/Plan (F43.23) Adjustment disorder with mixed anxiety and depressed mood (primary encounter diagnosis) Comment: patient is no longer taking fluoxetine, his has noticed increase in irritability and anger as a result. Appears to be using alcohol as coping mechanism, drinking 3-4 cans of beer/day. Plan: COMP METABOLIC PANEL Encouraged patient to challenge himself by ceasing alcohol consumption for the next 3 months Discussed establishing with amy zeng (more content not included)... [facility] ([id number]) 1960 M Date Time Provider Department 10/31/22 STEPHANIA TINSLEY ORAdam During your visit today, we recorded the following information about you: Sabra Rivas 10/31/2022 3:45 PM Signed Type of form: FMLA Form received via walk in When form is completed, Fax form to [phone] Form has been forwarded to [facility] Sabra Stover - will pick up worker the second set of papers [phone] David Darden 11/01/2022 3:34 PM Signed Done Allergies As of Date: 10/31/2022 (No Known Allergies) Date Reviewed: 10/31/2022 Reviewed by: Vicky Espinoza - Fully Assessed Reason for Visit: Patient Question [1477] Prescriptions as of 11/01/2022 - CPAP/BIPAP/OTHER Type .CPAPSettings into a note to see current settings/supplies/DME information. - CPAP Initiate Auto PAP @ 5-20 cm of water with humidification. Mask (per patient preference) optional chin strap (if indicated) , filters, tubing, humidifier and lifetime supplies. - secukinumab (COSENTYX) 150 mg/mL injection Inject 150 mg subcutaneously once every month. 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] 11/24/2009 Psoriasis [L40.9] 02/26/2011 Nonspecific elevation of levels of transaminase* Psoriatic arthropathy (HCC) [L40.50] 08/13/2015 Long-term use of immunosuppressant medication [*11/21/2016 Nodule of left palm [R22.32] 11/21/2016 Encounter Status:Closed by DAVID DARDEN on 11/01/22 [facility] XR Hand - bilateral PA and L ateral and Obliqueon 09-10-2022 IMPRESSION: No acute abnormality Travel Registered Nurse Nicu: RACHELLE Transcribe Date/Time: Sep 10 2022 3:08P Dictated by : SIERRA CHAVEZ MD This examination was interpreted and the report reviewed and electronically signed by: SIERRA CHAVEZ MD on Sep 10 2022 3:09PM [facility] * * *Final Report* * * DATE OF EXAM: Sep 06 2022 3:17PM SORAYA 5556 - XR HAND 3V PA/LAT/OBL CORRINA / PROCEDURE REASON: [id number] * * * * Physician Interpretation * * * * PROCEDURE: Bilateral hands INDICATION: Pain .bilateral hand pain for a long time TECHNIQUE: XR HAND 3V PA/LAT/OBL CORRINA COMPARISON: 02/10/2014 FINDINGS: Bone mineralization is normal. 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 No significant joint space narrowing. Mild osteoarthritic change in multiple DIP joints bilaterally, most prominent in the left 4th DIP joint. No erosion or focal soft tissue swelling. [facility] Provider, Maria Dolores austin [place] - 09/10/2022 * * *Final Report* * * DATE OF EXAM: Sep 06 2022 3:17PM SORAYA 5556 - XR HAND 3V PA/LAT/OBL CORRINA / PROCEDURE REASON: [id number] * * * * Physician Interpretation * * * * PROCEDURE: Bilateral hands INDICATION: Pain .bilateral hand pain for a long time TECHNIQUE: XR HAND 3V PA/LAT/OBL CORRINA COMPARISON: 02/10/2014 FINDINGS: Bone mineralization is normal. 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 No significant joint space narrowing. Mild osteoarthritic change in multiple DIP joints bilaterally, most prominent in the left 4th DIP joint. No erosion or focal soft tissue swelling. IMPRESSION IMPRESSION: No acute abnormality Travel Registered Nurse Nicu: PSCB Transcribe Date/Time: Sep 10 2022 3:08P Dictated by : SIERRA CHAVEZ MD This examination was interpreted and the report reviewed and electronically signed by: SIERRA CHAVEZ MD on Sep 10 2022 3:09PM EST [facility] XR Hand - bilateral PA and L ateral and ObliqueOrdered By: [facility] Provider on 09-10-2022 [facility] XR Hand - bilateral PA and L ateral and Obliqueon 09-06-2022 Radiology Study observation (narrative) [facility] EMG(NEURO/NI)on 07-28-2022 [facility] COLONOSCOPY SCREENINGon 08-27 [facility] Vital Signs Date Time Vital Sign Value Performing Clinician Domenica huntley 01-16-2023 12:00-0500 Diastolic blood pressure 67 mm[Hg] Stephania Tinsley DO Work Phone: [facility] 01-16-2023 12:00-0500 Heart rate 64 /min Stephania Tinsley DO Work Phone: [facility] 01-16-2023 12:00-0500 Respiratory rate 14 /min Stephania Tinsley DO Work Phone: [facility] 01-16-2023 12:00-0500 SaO2% (BldA) [Mass fraction] 97 % Stephania Campoorelli DO Work Phone: [facility] 01-16-2023 12:00-0500 Systolic blood pressure 104 mm[Hg] Stephaniamelissa Campoorelli DO Work Phone: [facility] 01-16-2023 11:46-0500 Body temperature 96.8 [degF] Stephania Campoorelli DO Work Phone: [facility] 01-16-2023 10:57-0500 Body height 177.8 cm Stephania Campoorelli DO Work Phone: [facility] 01-16-2023 10:57-0500 Body weight 95.25 kg Stephania Griderli DO Work Phone: [facility] 10-31-2022 14:29-0400 Body height 177.8 cm Coni Rogers MD Work Phone: [facility] 10-31-2022 14:29-0400 Body weight 94.8 kg Coni Rogers MD Work Phone: [facility] 10-31-2022 14:29-0400 Diastolic blood pressure 67 mm[Hg] Coni Rogers MD Work Phone: [facility] 10-31-2022 14:29-0400 Heart rate 87 /min Coni Rogers MD Work Phone: [facility] 10-31-2022 14:29-0400 SaO2% (BldA) [Mass fraction] 95 % Coni Rogers MD Work Phone: [facility] 10-31-2022 14:29-0400 Systolic blood pressure 105 mm[Hg] Coni Rogers MD Work Phone: [facility] 10-11-2022 09:40-0400 Body height 177.8 cm Ashkan Rivas PA-C Work Phone: [facility] 10-11-2022 09:40-0400 Body weight 96.16 kg Ashkan Rivas PA-C Work Phone: [facility] 10-11-2022 09:40-0400 Diastolic blood pressure 72 mm[Hg] Ashkan Rivas PA-C Work Phone: [facility] 10-11-2022 09:40-0400 Heart rate 72 /min Ashkan Rivas PA-C Work Phone: [facility] 10-11-2022 09:40-0400 SaO2% (BldA) [Mass fraction] 95 % Ashkan Rivas PA-C Work Phone: [facility] 10-11-2022 09:40-0400 Systolic blood pressure 126 mm[Hg] Ashkan Rivas PA-C Work Phone: [facility] 07-07-2022 15:17-0400 Body height 177.8 cm Coni Rogers MD Work Phone: [facility] 07-07-2022 15:17-0400 Body weight 90.27 kg Coni Rogers MD Work Phone: [facility] 07-07-2022 15:17-0400 Diastolic blood pressure 59 mm[Hg] Coni Rogers MD Work Phone: [facility] 07-07-2022 15:17-0400 Heart rate 80 /min Coni Rogers MD Work Phone: [facility] 07-07-2022 15:17-0400 Systolic blood pressure 106 mm[Hg] Coni Rogers MD Work Phone: [facility] 06-07-2022 15:45-0400 Body height 177.8 cm Coni Rogers MD Work Phone: [facility] 06-07-2022 15:45-0400 Body weight 94.35 kg Coni Rogers MD Work Phone: [facility] 06-07-2022 15:45-0400 Diastolic blood pressure 73 mm[Hg] Coni Rogers MD Work Phone: [facility] 06-07-2022 15:45-0400 Heart rate 84 /min Coni Rogers MD Work Phone: [facility] 06-07-2022 15:45-0400 SaO2% (BldA) [Mass fraction] 94 % Coni Rogers MD Work Phone: [facility] 06-07-2022 15:45-0400 Systolic blood pressure 124 mm[Hg] Coni Rogers MD Work Phone: [facility] 09-23-2021 09:34-0400 Diastolic blood pressure 81 mm[Hg] Shalonda Aguero MD Work Phone: [facility] 09-23-2021 09:34-0400 Heart rate 67 /min Shalonda Aguero MD Work Phone: [facility] 09-23-2021 09:34-0400 Respiratory rate 16 /min Shalonda Aguero MD Work Phone: [facility] 09-23-2021 09:34-0400 SaO2% (BldA) [Mass fraction] 92 % Shalonda Aguero MD Work Phone: [facility] 09-23-2021 09:34-0400 Systolic blood pressure 123 mm[Hg] Shalonda Aguero MD Work Phone: [facility] 09-23-2021 07:37-0400 Body temperature 97.59 [degF] Shalonda Aguero MD Work Phone: [facility] 09-23-2021 07:37-0400 Body weight 94.3 kg Shalonda Aguero MD Work Phone: [facility] 07-18-2021 15:21-0400 Body height 177.8 cm Fatuma Pinch PA-C Work Phone: [facility] 07-18-2021 15:21-0400 Body temperature 98.2 [degF] Fatuma Pinch PA-C Work Phone: [facility] 07-18-2021 15:21-0400 Body weight 94.35 kg Fatuma Pinch PA-C Work Phone: [facility] 07-18-2021 15:21-0400 Diastolic blood pressure 72 mm[Hg] Fatuma Pinch PA-C Work Phone: [facility] 07-18-2021 15:21-0400 Heart rate 80 /min Fatuma Pinch PA-C Work Phone: [facility] 07-18-2021 15:21-0400 SaO2% (BldA) [Mass fraction] 96 % Fatuma Pinch PA-C Work Phone: [facility] 07-18-2021 15:21-0400 Systolic blood pressure 118 mm[Hg] Fatuma Giovanna PA-C Work Phone: [facility] 07-08-2021 15:28-0400 Body height 177.8 cm Coni Rogers MD Work Phone: [facility] 07-08-2021 15:28-0400 Body weight 92.53 kg Coni Rogers MD Work Phone: [facility] 07-08-2021 15:28-0400 Diastolic blood pressure 66 mm[Hg] Coni Rogers MD Work Phone: [facility] 07-08-2021 15:28-0400 Heart rate 84 /min Coni Rogers MD Work Phone: [facility] 07-08-2021 15:28-0400 Systolic blood pressure 116 mm[Hg] Coni Rogers MD Work Phone: [facility] Encounters Encounter Date Encounter Type Care Provider Facility Start: 02-13-2024 End: 02-13-2024 ambulatory Florentino Rogers Facility:[facility] Start: 10-05-2023 End: 10-05-2023 ambulatory CONI ROGERS Facility:[facility] Start: 10-05-2023 End: 10-05-2023 Patient encounter procedure [facility]c [facility] Webb Work Phone: [facility] Comment on above: Laceration without f oreign body of left forearm, initial encounter (Primary Dx) Start: 09-26-2023 End: 09-26-2023 Emergency department patient visit CONI ROGERS Facility:[facility] Start: 08-07-2023 Telephone encounter Coni Rogers MD Work Phone: [facility] Comment on above: Received Outside Med ical Records ([facility] Visit summary Hospital follow up 08/03/2023) Start: 08-03-2023 End: 08-03-2023 ambulatory Florentino Rogers Facility:[facility] Start: 07-24-2023 Telephone encounter Coni Rogers MD Work Phone: [facility] Comment on above: Received Outside Med ical Records ([facility] Er Summary 07/19/2023 Cardiac Cath report ) Start: 07-19-2023 End: 07-19-2023 ambulatory Florentino Rogers Facility:[facility] Start: 07-19-2023 ambulatory Florentino Rogers Facility :[facility] Start: 02-23-2023 End: 02-23-2023 ambulatory KADEN DURON Facility:[facility] Start: 02-06-2023 End: 02-06-2023 ambulatory CONI ROGERS Facility:[facility] Start: 01-29-2023 End: 01-29-2023 ambulatory CONI ORGERS Facility:[facility] Start: 01-29-2023 End: 01-29-2023 Patient encounter procedure Kaden Duron PA-C Work Phone: Orthopaedics Comment on above: S/P carpal tunnel re lease (Primary Dx) Start: 01-16-2023 ambulatory CONI ROGERS Facili ty:[facility] Start: 01-16-2023 End: 01-16-2023 Subsequent hospital visit by physician Stephania Tinsley DO Work Phone: [facility] Surgery Comment on above: Carpal tunnel syndro me of left wrist [G56.02] Start: 01-10-2023 Telephone encounter Stephania Tinsley DO Work Phone: [facility] Comment on above: Patient Question; Le tter Start: 01-09-2023 End: 01-09-2023 ambulatory CONI ROGERS Facility:[facility] Start: 12-29-2022 End: 12-29-2022 ambulatory CONI ROGERS Facility:[facility] Start: 11-30-2022 End: 11-30-2022 ambulatory CONI ROGERS Facility:[facility] Start: 11-30-2022 End: 11-30-2022 Patient encounter procedure Buzz Santiago MD Work Phone: Otolaryngology Comment on above: Laryngopharyngeal re flux (LPR) (Primary Dx); Hoarse voice quality Start: 10-31-2022 End: 10-31-2022 ambulatory CONI ROGERS Facility:[facility] Start: 10-31-2022 End: 10-31-2022 Patient encounter procedure Coni Rogers MD Work Phone: [facility] Comment on above: Adjustment disorder with mixed anxiety and depressed mood (Primary Dx); Hoarse voice quality; PAT (obstructive sleep apnea); Carpal tunnel syndrome, bilateral; Pure hypercholesterolemia Start: 10-31-2022 Telephone encounter Stephania Tinsley DO Work Phone: [facility] [place] Comment on above: Patient Question Start: 10-11-2022 End: 10-11-2022 Patient encounter procedure Ashkan Rivas PA-C Work Phone: [facility] [place] Comment on above: Cervical radiculopat hy at C6 (Primary Dx); Carpal tunnel syndrome, bilateral Start: 10-10-2022 Refill Coni vasquez MD Work Phone: [facility] Comment on above: Refill Request Start: 09-25-2022 Orders Only Stephania Tinsley DO Work Phone: Orthopaedics Comment on above: Carpal tunnel syndro me of left wrist (Primary Dx) Start: 09-20-2022 Telephone encounter Sally chaidez APRN.[employer] Work Phone: [facility] Comment on above: Received Outside [employer] Records ([employer] Orders for Cpap supplies 09/20/2022) Start: 09-06-2022 End: 09-06-2022 Patient encounter procedure Stephania Tinsley DO Work Phone: Orthopaedics Comment on above: Carpal tunnel syndro me of left wrist (Primary Dx); Carpal tunnel syndrome, bilateral; Carpal tunnel syndrome of right wrist; Cervical radiculopathy at C6 Start: 09-06-2022 End: 09-06-2022 Subsequent hospital visit by physician Radio General Pratima Brady Work Phone: Radiology Comment on above: Pain [R52] Start: 07-31-2022 Telephone encounter Sally chaidez TIMBER SKIDDER.TICKET MARKER Work Phone: [facility] Comment on above: Results Start: 07-28-2022 End: 07-28-2022 ambulatory Emg 850) Neurology Comment on above: EMG Start: 07-28-2022 End: 07-28-2022 Patient encounter procedure Emg 2 Neur [facility] (Max Weight: 850) [facility] Start: 07-07-2022 End: 07-07-2022 Patient encounter procedure Coni Rogers MD Work Phone: [facility] Comment on above: Adjustment disorder with mixed anxiety and depressed mood (Primary Dx) Start: 06-15-2022 Nurse Triage Coni vasquez MD Work Phone: [facility] Comment on above: Orders Start: 06-07-2022 End: 06-07-2022 Patient encounter procedure Coni Rogers MD Work Phone: [facility] Comment on above: Well adult exam ([facility] Dx); Encounter for immunization; Paresthesia of hand, bilateral; Adjustment disorder with mixed anxiety and depressed mood; Pure hypercholesterolemia; PAT (obstructive sleep apnea); Alcohol use disorder, moderate, in early remission (HCC) Start: 06-07-2022 End: 06-07-2022 Patient encounter status Coni Rogers MD Work Phone: [facility] Start: 09-23-2021 End: 09-23-2021 Subsequent hospital visit by physician Shalonda Aguero MD Work Phone: Ambulatory Surgery Comment on above: History of colonic p olyps [Z86.010] Start: 07-18-2021 End: 07-18-2021 Patient encounter procedure Fatuma Heredia PA-C Work Phone: General Surgery Comment on above: Encounter for screen ing for malignant neoplasm of colon (Primary Dx); History of colonic polyps Start: 07-18-2021 Telephone encounter Sally Akins dm [employer]BER SKIDDER.TICK[employer] MARKER Work Phone: [facility] Comment on above: Results Start: 07-08-2021 End: 07-08-2021 Patient encounter procedure Coni Rogers MD Work Phone: [facility] Comment on above: Psoriasis (Primary D x); PAT (obstructive sleep apnea); History of colonic polyps Start: 05-25-2021 Chart abstracting [facility] Work Phone: Neurology Comment on above: HSAT Check In (Adult ) Procedures Date Procedure Procedure Detail Performing Clinician Start: 09-06-2022 Radex hand minimum 3 views Stephania Tinsley DO Work Phone: Start: 07-28-2022 Nerve conduction hemant dies 5-6 studies Coni Rogers MD Work Phone: Start: 06-07-2022 Vendormate COVI D-19 BIVALENT BOOSTER VACCINE, AGE 12+ YR Coni Rogers MD Work Phone: Start: 09-23-2021 Colon ca scrn not hi rsk ind Fatuma Heredia PA-C Work Phone: Start: 09-23-2021 Colonoscopy Shalonda Aguero MD Work Phone: Start: 07-08-2021 Adult depression screening assessment Coni Rogers MD Work Phone: Start: 03-09-2021 Lipid 1996 panel - S xiang or Plasma Buzz Santiago MD Work Phone: Start: 05-29-2017 Adult depression screening assessment [facility] Work Phone: Start: 04-18-2013 Colonoscopy [facility] Work Phone: History of decompres nabila of median nerve S/P carpal tunnel release Kaden Duron PA-C Work Phone: Plan of Treatment Date Care Activity Detail Author Start: 09-25-2033 Urine microalbumin profile DTaP,Tdap,Td Vaccine (3 - Td or Tdap) [facility] Start: 09-24-2031 Colonoscopy COLONOSCOPY [facility] Start: 09-24-2031 COLORECTAL CANCER SCREENING COLORECTAL CANCER SCREENING [facility] Start: 09-23-2026 Colonoscopy COLONOSCOPY [facility] Start: 09-23-2026 COLORECTAL CANCER SCREENING COLORECTAL CANCER SCREENING [facility] Start: 09-23-2026 Screening for malignant neoplasm of colon [facility] Start: 03-09-2026 Lipid 1996 panel - Serum or Plasma Lipid Screening [facility] Start: 03-09-2026 Lipid panel Lipid Screening [facility] Start: 03-09-2026 LIPID SCREEN LIPID SCREEN [facility] Start: 03-09-2026 PROSTATE CANCER SCREENING DISCUSSION PROSTATE CANCER SCREENING DISCUSSION [facility] Start: 03-09-2026 Prostate specific antigen measurement Prostate Cancer Screening Discussion [facility] Start: 12-29-2025 Diabetes Screening Diabetes Screening [facility] Start: 03-09-2024 DIABETES SCREEN DIABETES SCREEN [facility] Start: 03-09-2024 Diabetes Screening Diabetes Screening [facility] Start: 10-28-2023 Covid-19 Vaccine ( season) Covid-19 Vaccine () [facility] Start: 10-28-2023 Influenza vaccination [facility] Start: 04-18-2023 Colonoscopy COLONOSCOPY [facility] Start: 04-18-2023 COLORECTAL CANCER SCREENING COLORECTAL CANCER SCREENING [facility] Start: 03-13-2023 Urine microalbumin profile [facility] Start: 02-26-2023 Behavioral Health Screening Behavioral Health Screening [facility] Start: 10-31-2022 End: 12-31-2022 Comprehensive metabolic 2000 panel - Serum or Plasma COMP METABOLIC PANEL Lab Routine Adjustment disorder with mixed anxiety and depressed mood Hoarse voice quality PAT (obstructive sleep apnea) Expected: 10/31/2022, Expires: 12/31/2022 [facility] Work Phone: Comment on above: Expected: 10/31/2022, Expires: Start: 10-31-2022 End: 12-31-2022 Lipid 1996 panel - Serum or Plasma LIPID PANEL BASIC Lab Routine Pure hypercholesterolemia Expected: 10/31/2022, Expires: 12/31/2022 [facility] Work Phone: Comment on above: Expected: 10/31/2022, Expires: 3 Start: 10-27-2022 Covid-19 Vaccine (2022- season) Covid-19 Vaccine (2022- season) [facility] Start: 10-27-2022 Influenza vaccination [facility] Start: 08-02-2022 COVID-19 VACCINE (5 - Mixed Product risk series) COVID-19 VACCINE (5 - Mixed Product risk series) [facility] Start: 07-08-2022 Adult depression screening assessment DEPRESSION SCREENING [facility] Start: 06-07-2022 End: 08-07-2022 Lipid 1996 panel - Serum or Plasma LIPID PANEL BASIC Lab Routine Pure hypercholesterolemia Expected: 06/07/2022, Expires: 08/07/2022 [facility] Work Phone: Comment on above: Expected: 06/07/2022, Expires: 3 Start: 03-09-2022 HIV SCREENING HIV SCREENING [facility] Comment on above: Postponed from 11/27/1977 (Declined at t his time) Start: 10-27-2021 Influenza vaccination INFLUENZA (#1) [facility] Start: 06-07-2021 COVID-19 VACCINE (4 - Booster) COVID-19 VACCINE (4 - Booster) [facility] Start: 2019 RSV Vaccine (1 - 1-dose 60+ series) RSV Vaccine (1 - 1-dose 60+ series) [facility] Start: 05-29-2018 Adult depression screening assessment DEPRESSION SCREENING [facility] Start: 08-12-2015 PNEUMOCOCCAL (2 - PCV) PNEUMOCOCCAL (2 - PCV) [facility] ic Start: 11-27-2009 SHINGRIX VACCINE (1 of 2) SHINGRIX VACCINE (1 of 2) [facility] Start: 11-27-2004 COLOGUARD (FIT-DNA) COLOGUARD (FIT-DNA) [facility] Start: 11-27-[address] COLONOGRAPHY [facility] Start: 11-27-2004 FECAL OCCULT BLOOD FECAL OCCULT BLOOD [facility] Start: 11-27-2004 Screening for malignant neoplasm of colon [facility] Start: 11-27-2004 SIGMOIDOSCOPY SIGMOIDOSCOPY [facility] Start: 11-27-1978 SHINGRIX VACCINE (1 of 2) SHINGRIX VACCINE (1 of 2) [facility] Start: 11-27-1977 Anxiety Screening Anxiety Screening [facility] Start: 11-27-1977 Depression Screening Depression Screening [facility] Start: 11-27-1977 HIV SCREENING HIV SCREENING [facility] Start: 11-27-1977 HIV screening HIV Screening [facility] End: 06-08-2023 EMG(NEURO/NI) EMG(NEURO/NI) EMG Routine Paresthesia of hand, bilateral 1 Occurrences starting 06/07/2022 until 06/08/2023 [facility] Work Phone: Comment on above: 1 Occurrences starting 06/07/2022 until 06/08/2023 End: 07-07-2023 PAP TITRATION PSG (CPAP, BIPAP, ASV) PAP TITRATION PSG (CPAP, BIPAP, ASV) Procedures Routine PAT (obstructive sleep apnea) 1 Occurrences starting 06/07/2022 until 07/07/2023 [facility] Work Phone: Comment on above: 1 Occurrences starting 06/07/2022 until 07/07/2023 End: 07-08-2022 Polysomnogram POLYSOMNOGRAM (PSG) Procedures Routine PAT (obstructive sleep apnea) 1 Occurrences starting 07/08/2021 until 07/08/2022 [facility] Work Phone: Comment on above: 1 Occurrences starting 07/08/2021 until 07/08/2022 [facility] Immunizations Immunization Date Immunization Notes Care Provider Fa [facility] 09-26-2023 tetanus toxoid, redu andria diphtheria toxoid, and acellular pertussis vaccine, adsorbed Cc Webb Work Phone: [facility] 06-07-2022 pneumococcal Conjuga te, unspecified formulation Coni Rogers MD Work Phone: [facility] Work Phone: 06-07-2022 COVID-19 booster vaccine, age 12+ yr, bivalent ([employer]-BIONTECH) Coni Rogers MD Work Phone: [facility] 06-07-2022 pneumococcal (PCV20) vaccine, 20 valent (PREVNAR 20) Coni Rogers MD Work Phone: [facility] 03-09-2021 COVID-19 vaccine, ag e 12+ yr (PFIZER-BIONTECH - PURPLE TOP) [facility] Work Phone: [facility] 01-12-2021 influenza, injectabl e, quadrivalent, contains preservative [facility] Work Phone: [facility] Work Phone: 01-12-2021 influenza virus vacc ine, unspecified formulation Buzz Santiago MD Work Phone: [facility] 07-09-2020 COVID-19 vaccine, fu ll dose (MODERNA) [facility] Work Phone: [facility] 06-11-2020 COVID-19 vaccine, fu ll dose (MODERNA) [facility] Work Phone: [facility] 11-21-2016 influenza, injectabl e, quadrivalent, contains preservative [facility] Work Phone: [facility] 02-15-2016 influenza, seasonal, injectable [facility] Work Phone: [facility] Work Phone: 02-09-2015 influenza, injectabl e, quadrivalent, contains preservative [facility] Work Phone: [facility] 02-09-2015 influenza, seasonal, injectable [facility] Work Phone: [facility] 08-11-2014 pneumococcal polysaccharide vaccine, 23 valent [facility] Work Phone: [facility] 02-10-2014 influenza, seasonal, injectable [facility] Work Phone: [facility] 03-13-2013 tetanus toxoid, redu andria diphtheria toxoid, and acellular pertussis vaccine, adsorbed [facility] Work Phone: [facility] Payers Date Payer Category Payer Unknown [facility] [id number] 2023-Present [phone] [address] [place] [address] O [id number] 2023 Unknown [id number] 2023 Unknown [id number] 2023 Self-pay 2023 Unknown [id number] 2021 Private Health Insurance [employer] O[employer] [id number] 2021-Present [phone] [address] [place] [id number] Open Access [id number] 2021 Private Health Insurance [id number] 2021 Private Health Insurance [id number] Unknown [id number] Unknown [id number] Unknown [id number] Unknown [id number] Unknown [id number] Unknown [id number] Social History Date Type Detail Facility Start: [facility] End: 09-14-2009 History of tobacco use Current smoker [facility] Start: 05-03-2021 End: 09-06-2022 Alcohol intake Current drinker of alcohol (finding) [facility] Start: 11-24-2009 History SDOH Alcohol Comment Socially [facility] Start: 1960 Sex Assigned At Not on file C [facility] Start: 04-03-2021 End: 09-23-2021 Exposure to SARS-CoV-2 (event) Not sure [facility] End: 09-14-2009 History of tobacco use Cigarette Smoker [facility] Start: 06-07-2022 Tobacco use and exposure Smokeless tobacco non-user [facility] Start: 07-07-2022 End: 09-06-2022 History of Social function [facility] Work Phone: Start: 07-07-2022 End: 09-06-2022 Tobacco use panel [facility] Work Phone: Adult Depression Screening Assessment 2 [facility] Work Phone: Clinical Notes 06-03-2021 to 08-07-2023 Telephone Encounter - Chelsey Krishna LPN - 08/07/2023 12:53 PM EDTTelephone Encounter - Chelsey Krishna LPN - 08/07/2023 12:53 PM EDTTelephone Encounter - Vicky Espinoza LPN - 07/24/2023 4:47 PM EDT Note Date & Type Note Facility 08-07-2023 Telephone encounter Note Received 08/07/2023 from [facility]. Placed in provider's inbox for review. Route to [place] for scanning. [facility] 08-07-2023 Miscellaneous Notes Received 08/07/2023 from [facility]. Placed in provider's inbox for review. Route to [place] for scanning. documented in this encounter [facility] 07-24-2023 Telephone encounter Note Received EKG report from [facility] 07/19/23. Placed in provider's inbox for review. Route to [place] scanning [facility] 07-24-2023 Miscellaneous Notes Received EKG report from [facility] 07/19/23. Placed in provider's inbox for review. Route to [place] scanning Received 07/24/2023 from [facility]. Placed in provider's inbox for review. Route to [place] for scanning. documented in this encounter [facility] 07-24-2023 Telephone encounter Note Received 07/24/2023 from [facility]. Placed in provider's inbox for review. Route to [place] for scanning. [facility] 02-23-2023 Note HNO ID: [id number] Author: Kaden Duron PA-C Service: ? Author Type: Physician Organic Section Technical Lead Type: Progress Notes Filed: 02/23/2023 10:47 AM Note Text: POST OP Mr. Stover presents today for his 2 week visit from: right carpal tunnel release on 02/06/[address] Tinsley. Established Patient, Follow Up, and Post Op of the Right Wrist History: PAIN EVALUATION 02/23/2023 0954 Pain Level: 5 Pain Location: Wrist-Right Description: Tightness;Stiffness;Dull;Aching;In cision Duration Amount of Time: 17 Duration Units: Days Frequency: Intermittent Intervention/Comfort measure: Relaxation;Reposition He is doing well postoperatively. Patients rates his condition as improving. Patient states their pre-operative numbness is resolved. The patient denies warmth, discharge, drainage, fevers, chills, sweats. He reports compliance with wound care. 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 He is requesting RTW date of 1/8/24 with light duty and lifting restriction. The patient reports stiffness in both hands. He is not interested in occupational therapy at this time but he is interested in beginning home exercises. He reports no change in past medical AND surgical history, medications, allergies, social history, family history and review of systems since last visit, with the exception of the following: None Review of Systems All other systems reviewed and are negative. Physical Examination: Right hand: Appropriate postop appearance No evidence of erythema, warmth, discharge or drainage Incision clean/dry/intact Sutures intact no tenderness about the incision Positive median, ulna, and radial nerve function Positive distal pulses Able to make loose fist and extend all fingers PROCEDURE: Sutures removed from right hand and steri-strips applied. This was well-tolerated without complication. Assessment and Plan: 62 year old male 2 weeks S/P right carpal tunnel release progressing as expected in the immediate post operative period. Gradually advance activities as tolerated. RTW letter provided Discussed home exercises and hand exercise sheet was provided today. The patient will notify us if he would like to initiate occupational therapy Post op care discussed, all questions answered Follow up PRN Kaden Duron PA-C [facility] 01-29-2023 Note HNO ID: [id number] Author: Kaden Duron PA-C Service: ? Author Type: Physician Organic Section Technical Lead Type: Progress Notes Filed: 01/29/2023 10:41 AM Note Text: POST OP Mr. Stover presents today for his 10-14 day visit from: left carpal tunnel release on 01/16/[address] Tinsley. Established Patient, Follow Up, and Post Op of the Left Wrist History: Patient reports no pain. He is doing well postoperatively. Patients rates his condition as improving. Patient states their pre-operative numbness is resolved. The patient denies warmth, discharge, drainage, fevers, chills, sweats. He reports compliance with wound care. He is scheduled for right CTR next week. Review of Systems All other systems reviewed and are negative. Physical Examination: Left hand: Appropriate postop appearance No evidence of erythema, warmth, discharge or drainage Incision clean/dry/intact Sutures intact no tenderness about the incision Positive median, ulna, and radial nerve function Positive distal pulses Able to make fist and extend all fingers PROCEDURE: Sutures removed from left hand. This was well-tolerated without complication. Assessment and Plan: 62 year old male S/P left carpal tunnel release at normal post-operative stage of recovery. Gradually advance activities as tolerated. Post op care discussed, all questions answered Right CTR next week Follow up as scheduled Kaden Duron PA-C Addendum: Shortly after leaving the office the patient returned reporting wound dehiscence. The incision was re-examined and there is now superficial dehiscence of the distal portion of the incision. No drainage upon palpation. Steri-strips were applied to the incision to re-approximate the skin followed by non-adherent dressing and Coban. This was well tolerated without complication. Wound care discussed. Follow up as scheduled, sooner PRN. [facility] 01-29-2023 History of Present illness Narrative POST OP Mr. Stover presents today for his 10-14 day visit from: left carpal tunnel release on 01/16/[address] Tinsley. Established Patient, Follow Up, and Post Op of the Left Wrist History: Patient reports no pain. He is doing well postoperatively. Patients rates his condition as improving. Patient states their pre-operative numbness is resolved. The patient denies warmth, discharge, drainage, fevers, chills, sweats. He reports compliance with wound care. He is scheduled for right CTR next week. Review of Systems All other systems reviewed and are negative. Physical Examination: Left hand: Appropriate postop appearance No evidence of erythema, warmth, discharge or drainage Incision clean/dry/intact Sutures intact no tenderness about the incision Positive median, ulna, and radial nerve function Positive distal pulses Able to make fist and extend all fingers PROCEDURE: Sutures removed from left hand. This was well-tolerated without complication. Assessment and Plan: 62 year old male S/P left carpal tunnel release at normal post-operative stage of recovery. Gradually advance activities as tolerated. Post op care discussed, all questions answered Right CTR next week Follow up as scheduled Kaden Duron PA-C Addendum: Shortly after leaving the office the patient returned reporting wound dehiscence. The incision was re-examined and there is now superficial dehiscence of the distal portion of the incision. No drainage upon palpation. Steri-strips were applied to the incision to re-approximate the skin followed by non-adherent dressing and Coban. This was well tolerated without complication. Wound care discussed. Follow up as scheduled, sooner PRN. documented in this encounter [facility] 01-16-2023 History and physical note UPDATED HISTORY AND PHYSICAL EXAMINATION SERVICE DATE: 01/16/2023 SERVICE TIME: 12:00 PM PHYSICAL EXAM MUST BE COMPLETED ON ADMISSION The History and Physical (completed in the past 30 days) has been reviewed and the patient has been examined. The contents accurately reflect the patient's condition with the following additions or revisions since the H&P was completed. Examination indicates no changes. This H&P can be found in the Electronic Medical Record. SIGNATURE: Stephania Tinsley DO PATIENT NAME: Hollie Stover DATE: January 16, 2023 TIME: 12:00 PM Source Note - Jojo Kline, [employer]ES[employer].TICKET MARKER - 01/09/2023 3:03 PM EST HISTORY AND PHYSICAL EXAMINATION SERVICE DATE: 01/09/2023 SERVICE TIME: 3:20 PM PRIMARY CARE PHYSICIAN: Coni Rogers MD Assessment Patient has the following medical conditions which may affect siomara-operative course: Psoriasis Assessment: Cosyntex, following [facility] Psoriatic arthropathy (HCC) Assessment: otc analgesics as needed Ruggiero Activity Status Index: METS: Climb a flight of stairs or walk up a hill (5.50 METs) DASI Score: 5.5 Patient denies any chest pain or undue shortness of breath with the above physical activity. Clinical Frailty Scale: 3. Well, with treated comorbid disease STOP-Bang Score: Snores loudly Often feels tired, fatigued, or sleepy during the daytime Has been observed to stop breathing or choking/gasping during sleep Patient over 50 years old Has a large neck Male patient Denies having high blood pressure BMI less than or equal to 35 kg/m^2 STOP-Bang Score: 6 [id number] Score: Age: <65 Sex: male CHF history: No Hypertension history: No Stroke/TIA/thromboembolism history: No Vascular disease history: No Diabetes history: No [id number] Score: 0 ANESTHESIA FINDINGS: Intubation History: No history of difficult intubation Significant Anesthesia Considerations: none Airway History: No history of difficult airway I - PHYSICAL EVALUATION AIRWAY Patient intubated: No. Tracheostomy tube not present Mallampati: II. TM distance: >3 FB. Neck ROM: full ROM without neurological symptoms. Mouth opening: adequate. Short neck: no. Thick neck: yes Conklin present: yes Lip Bite Test: I Microretrognathia/Micronagthia/Rec essed Chin: No DENTAL Dental findings: teeth intact. II - ANESTHESIA PLAN Anesthetic Plan: other Beta Titus Monitoring Plan Post Procedure Analgesic Plan Informed Consent Anesthetic risks, benefits, alternatives, personnel and consent discussed: yes. Patient / Responsible Libertarian agrees to proceed: yes Patient / Surrogate agrees to blood products: blood products not planned Discussed the possibility of lip / dental damage: yes This is a virtual visit using [employer] video visit. It required patient-provider interaction for the medical decision making as documented below. REASON FOR VISIT: Hollie Stover is a 62 year old male who is scheduled for * No surgery found * at the request of Dr. Stephania Tinsley for consultation. My final recommendation will be communicated back to the requesting physician by way of shared medical record or letter. Subjective The patient has the following: ACTIVE PROBLEM LIST Pat (Obstructive Sleep Apnea) Cervicalgia Nail Dystrophy Psoriasis Nonspecific Elevation of Levels of Transaminase Or Lactic Acid Dehydrogenase (Ldh) Psoriatic Arthropathy (Hcc) Long-Term Use of Immunosuppressant Medication Nodule of Left Palm COVID-19 Immunization Status Overdue - Covid-19 Vaccine () Overdue since 10/27/2022 06/07/2022 Imm Admin: COVID-19 vaccine, age 12+ yr, bivalent (PFIZER-BIONTECH) 03/09/2021 Imm Admin: COVID-19 original vaccine, age 12+ yr, monovalent (PFIZER-BIONTECH - [facility]) 07/09/2020 Imm Admin: COVID-19 original vaccine, full dose, monovalent (MODERNA) Only the first 3 history entries have been loaded, but more history exists. CHIEF COMPLAINT: Pre-op exam HPI: Hollie Stover is a 62 year old seen for PAC due to scheduled above surgery because of CTS. 09/06/22Dr. Tinslye HPI: Hollie Stover is a 61 year old male presenting today with bilateral wrist pain. Patient has been experiencing numbness/tingling for years now with no specific injury. Does have a history of working with his hands a lot. Pain history is noted as above. Previous Treatments: Ice: No Heat: No Brace: No NSAIDs: No Injections: No Surgeries: No Physical Therapy: No REVIEW OF SYSTEMS: General: No weight loss, malaise or fevers. Neurological: No history of TIA's, stroke, [employer] tumor, impaired sensorium, hemiplegia, paraplegia or quadraplegia. No neurological symptoms or problems. Respiratory: +former smoker 1.5ppd/30 years Positive for: obstructive sleep apnea and CPAP/BiPAP compliant. Negative for: asthma, COPD, pneumonia within 6 weeks, tobacco use and URI < 2 weeks. Cardiovascular: No history of HTN requiring medication, no history of angina, CHF, LA, cardiac surgery or stents. Denies rest pain, gangrene or revascularization/amputation for PVD. No history of cardiovascular symptoms or problems. GI: No history of GI symptoms or problems. No history of esophageal varices, recent ascites, or ETOH greater than 2 drinks per day. : No history of dysuria, frequency or incontinence, stones or chronic kidney disease. No difficulty urinating, nocturia > 1 time per night or hematuria. Endocrine: No history of diabetes. Has not taken steroids within the past 30 days. No history of endocrinological symptoms or problems. Hematology: No history of bleeding or clotting disorder. Patient is not taking anti-coagulation or platelet medications. No history of hematological symptoms or problems. Oncology: No history of CA metastasis, chemo within 30 days, or radiotherapy within 90 days. No history of oncological symptoms or problems. Psych: No history of psychiatric symptoms or problems. Musculoskeletal: Positive for: joint pain. Skin: +psoriasis, on rx PAST MEDICAL HISTORY Diagnosis Date Arthritis History of transfusion Nonspecific elevation of levels of transaminase or lactic acid dehydrogenase (LDH) Other psoriasis and similar disorders Psoriasis Psoriatic arthritis (HCC) Sleep apnea PAST SURGICAL HISTORY Procedure Laterality Date COLONOSCOPY FLX DX W/COLLJ SPEC WHEN PFRMD 04/18/2013 Colonoscopy LIVER BX FAMILY HISTORY Problem Relation Age of Onset Diabetes Father Ischemic Heart Disease Father other (unknown) Mother Social History Tobacco Use Smoking status: Former Types: Cigarettes Quit date: 09/14/2009 Years since quittin.3 Smokeless tobacco: Never Vaping Use Vaping Use: Never used Substance Use Topics Alcohol use: Yes Comment: Socially Drug use: No Prior to Admission medications as of 01/09/23 1517 Medication Sig Last Dose Taking secukinumab (COSENTYX) 150 mg/mL injection Inject 150 mg subcutaneously once every month. Taking Yes CPAP/BIPAP/OTHER Type .CPAPSettings into a note to see current settings/supplies/DME information. CPAP Initiate Auto PAP @ 5-20 cm of water with humidification. Mask (per patient preference) optional chin strap (if indicated) , filters, tubing, humidifier and lifetime supplies. No medication comments found. ALLERGIES No Known Allergies Objective PHYSICAL EXAM: (if completed, exam performed via video enabled technology) General: alert and oriented (x3), healthy appearance and obese. Skin: normal color, no rash or lesions. HEENT: EOM intact and pupils equal round. Pertinent negatives noted - no carotid bruit. Cardiovascular: Self palpated radial pulse regular. Respiratory: normal breath sounds, no wheezes or crackles. Non-labored breathing. Abdomen: soft. Pertinent negatives noted - not tender. Extremities: no deformity, no edema or tenderness, no joint swelling or clubbing. Neurological: normal cognition and motor skills. Gait normal. No weakness or sensory deficit. PAIN ASSESSMENT: VITALS: Ht 5' 10 (1.78m) Wt 210 lb (95.3kg) BMI 30.13 kg/(m^2). Diagnostic tests reviewed for today's visit: Lab Value Units Date High Low HB No results within date range. HCT No results within date range. WBC No results within date range. PLT No results within date range. NA 139 mmol/L 12/29/2022 144 136 K 4.1 mmol/L 12/29/2022 5.1 3.7 GLUC 83 mg/dL 12/29/2022 99 74 BUN 16 mg/dL 12/29/2022 24 9 CREAT 0.77 mg/dL 12/29/2022 1.22 0.73 PTSEC No results within date range. INR No results within date range. APTT No results within date range. ALT 53 U/L 12/29/2022 54 10 AST 43 U/L 12/29/2022 40 14 TBILI 0.7 mg/dL 12/29/2022 1.3 0.2 TSH No results within date range. Lab Value Units Date High Low HCGQT No results within date range. UHCG No results within date range. HCG, BODY* No results within date range. Lab Value Units Date High Low ABORHD No results within date range. ABSCREEN No results within date range. No results found for: HBA1C No results found for this or any previous visit (from the past 8760 hour(s)). No results found for this or any previous visit (from the past 62969 hour(s)). Prepared for Surgery: optimally prepared for surgery. CONSULTS: Patient does not require consults for optimization at this time Planned Anesthetic: other anesthesia choice The Following Tests/Procedures Have Been Initiated: No orders of the defined types were placed in this encounter. Instructions Given to Patient: Instructions located in the after visit summary. Patient given verbal and written preop instructions and voices comprehension and compliance. SIGNATURE: Jojo Kline APRN.CNP PATIENT NAME: Hollie Stover DATE: January 09, 2023 TIME: 3:03 PM PAGER/CONTACT #: documented in this encounter [facility] 01-16-2023 Surgical operation note OPERATIVE/PROCEDURE REPORT LOG ID: [id number] SURGERY/PROCEDURE DATE: 01/16/2023 INCISION/PROCEDURE START TIME: 11:24 AM INCISION CLOSE/PROCEDURE END TIME: 11:41 AM SURGEON(S)/PROCEDURALIST(S) AND POLICE SERGEANT PRECINCT(S): Surgeon(s) and Role: * Stephania Tinsley DO - Primary Physician Organic Section Technical Lead: Catrina Maldonado PA-C SURGERY/PROCEDURE(S): Left carpal tunnel release ANESTHESIA: Monitored Anesthesia Care SURGERY/PROCEDURE DETAILS: OPERATIVE/PROCEDURE REPORT LOG ID: [id number] Surgery/Procedure Date: 01/16/2023 Incision/Procedure Start Time: 11:24 AM Incision Close/Procedure End Time: 11:41 AM Surgeon(s)/Proceduralist(s) and Organic Section Technical Lead(s): Surgeon(s) and Role: * Stephania Tinsley DO - Primary Physician Organic Section Technical Lead: Catrina Maldonado PA-C Procedure(s): OPERATION: Left carpal tunnel release, open. ANESTHESIA: local. PREOPERATIVE DIAGNOSIS: Left carpal tunnel syndrome. POSTOPERATIVE DIAGNOSIS: Left carpal tunnel syndrome. OPERATIVE INDICATIONS: This is a pleasant 62 year old male who had worsening, numbness, and tingling. His electrodiagnostic showed carpal tunnel syndrome. He exhausted conservative management and in the office, we discussed the risks, benefits, alternatives, and potential complications involving carpal tunnel release and he wished to pursue surgical intervention. OPERATIVE FINDINGS: Consistent with postoperative diagnosis. OPERATIVE PROCEDURE: On January 16, 2023, the patient was clearly identified in the preoperative area and marked accordingly on the Left palm by myself. He was taken to the operative suite and placed in the supine position with an armboard on the Left. All other bony landmarks were appropriately padded in standard fashion. The arm was then sterilely prepped and draped in standard fashion after miguel block. An appropriate time-out was conducted and all in the room were in agreement, signed consent form was on the chart. A longitudinal incision was made with in line with the third web space from 1 cm distal of the wrist crease to Huitron's cardinal line. I used Lexx Rakes to retract the soft tissues. Bipolar electrocautery was used for hemostasis. I bluntly dissected down with Littler scissors to distal edge of the transverse carpal ligament until a flash of fat was noted. I directly divided distal edge of the transverse carpal ligament with a #15 blade. Attention was then focused on the proximal portion and I used Littler scissors to bluntly dissect off the volar surface of the transverse carpal ligament. A carpal tunnel and median nerve protection guide was slid directly under the ligament for dilation and a second time for appropriate positioning, this was passed freely without any resistance. Subsequently, I selected a mini meniscotome [place] blade and slid this in the protective guide, completely dividing the transverse carpal ligament. Lexx rakes were used to view up the wound to visualize for complete release and a [place] elevator was used to palpate for complete release. hemostasis was observed. The wound was copiously irrigated with normal saline and I closed with 3-0 nylons in horizontal mattress fashion for a total of 3. Xeroform gauze, sterile 4 x 4 gauze, Webril padding, and a Bias roll was used for final bandage. There were no complications during the procedure. The patient was safely transferred to the Postanesthetic Care Unit in stable condition. I performed the entire procedure. SIGNATURE: Stephania Tinsley DO PATIENT NAME: Hollie Stover DATE: January 16, 2023 TIME: 12:03 PM PAGER/CONTACT #: PRE-OP/PRE-PROCEDURE DIAGNOSIS: left cts POST-OP/POST-PROCEDURE DIAGNOSIS: Same as Preop ESTIMATED BLOOD LOSS: 0 ml SPECIMENS: None IMPLANTABLE DEVICES: NONE DRAINS: None COMPLICATIONS: None CLOSURE TECHNIQUE: Primary PARTICIPATION IN SURGERY/PROCEDURE: I/primary surgeon/proceduralist performed the procedure with assistance. No qualified resident/fellow was available. SIGNATURE: Stephania Tinsley DO PATIENT NAME: Hollie Stover DATE: January 16, 2023 TIME: 12:03 PM documented in this encounter [facility] 01-12-2023 Miscellaneous Notes Spoke with patient on the phone. 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 We will write him off 3 weeks for each side with an estimated return to work date of 02/28/2023. Letter written and sent over [employer]. Catrina Maldonado PA-C Unable to reach patient on the phone. I will try back at a later time. Catrina Ash PA-C Chaddebby Stover is calling Stephania Tinsley DO today to request a letter for patient employer with an estimated return date to work for upcoming surgery on 01/16/2023. The second surgery is 02/06/2023. Please indicate in that letter time off needed and estimation of return date. Please address to: [employer] Attn: To Whom it may concern Please call patient when letter is ready for pick-up at [phone], spouse Jenna Patient has been identified by name and birthdate. Duration of symptoms: N/A Person calling: spouse: Jenna Call patient at: on cell Was an appointment scheduled: No Closing statement: Results or non-symptom based questions: Thank you for calling [facility], your call will be returned within the next business day. Beryl Hernandez documented in this encounter [facility] 11-30-2022 Note HNO ID: [id number] Author: Buzz Santiago MD Service: ? Author Type: Physician Type: Progress Notes Filed: 11/30/2022 3:23 PM Note Text: This consult is seen at the kind request of Dr. Coni Rogers of family medicine, and my final recommendations will be communicated to the requesting health care provider by way of shared electronic medical record. This note is formatted with the impression and plan first and the history and physical to follow. IMPRESSION 62-year-old male with dysphonia possibly due to laryngopharyngeal reflux. RECOMMENDATION/PLAN I recommend a trial of Prilosec 40 mg once a day for 3 months. If patient's voice fail to improve, we can consider voice therapy with speech. I informed him that I would like to see him back if his voice gets worse. Chief Complaint Hoarseness History of Present Illness Hollie Stover is a 62 year old male present for evaluation of hoarseness of his voice. Patient stated that for the last 4 months, he has been having some hoarseness intermittently. It all started with what sounds like laryngitis where he lost his voice. Slowly, his voice return but has never gone back to normal. Patient denies any heartburn. He denies any dysphagia, odynophagia, sore throat, or shortness of breath. He is a former smoker with 44-eior-tezp smoking history. PAST MEDICAL HISTORY Diagnosis Date Arthritis History of transfusion Nonspecific elevation of levels of transaminase or lactic acid dehydrogenase (LDH) Other psoriasis and similar disorders Psoriasis Psoriatic arthritis (HCC) Sleep apnea PAST SURGICAL HISTORY Procedure Laterality Date COLONOSCOPY FLX DX W/COLLJ SPEC WHEN PFRMD 04/18/2013 Colonoscopy FAMILY HISTORY Problem Relation Age of Onset Diabetes Father Ischemic Heart Disease Father other (unknown) Mother CURRENT OUTPATIENT MEDICATIONS Current Outpatient Medications on File Prior to Visit Medication Sig CPAP/BIPAP/OTHER Type .CPAPSettings into a note to see current settings/supplies/DME information. CPAP Initiate Auto PAP @ 5-20 cm of water with humidification. Mask (per patient preference) optional chin strap (if indicated) , filters, tubing, humidifier and lifetime supplies. secukinumab (COSENTYX) 150 mg/mL injection Inject 150 mg subcutaneously once every month. No current facility-administered medications on file prior to visit. ALLERGIES ALLERGIES No Known Allergies The remainder of the patient's history and review of systems is on the outpatient questionaire which was reviewed by me and placed in the outpatient chart. PHYSICAL EXAMINATION Appearance: General examination of the patient's external face, head and neck reveals no abnormalities. The patient is not retrognathic The patient's voice is strong and clear and they communicate easily. Ears: Exam of the ears revealed normal appearing external auditory canals, tympanic membranes, and middle ears. No signs of infection or fluid were seen. Nose: External nasal exam showed external deviation of the nasal dorsum to the left. Throat: There were no lesions to visualization or palpation of the lips, cheeks, gums, floor of mouth, tongue, hard and soft palate, tonsillar pillars or posterior pharyngeal wall. Neck: Palpation of the neck revealed no adenopathy, salivary gland masses or asymmetry, or thyroid masses or enlargement. Procedure Flexible laryngoscopy was performed because of the following indication: hyperactive gag and dysphonia: After spraying the nose with 4% xylocaine and 0.5% oxymetazoline, the flexible scope was placed in a transnasal fashion. Bilateral septal deviation. The caudal septum was severely deviated to the left side and there is posterior deviation to the right. The nasopharynx, oropharynx, hypopharynx including the pyriform sinuses were normal. The base of tongue showed no gross lesions. The larynx itself showed mild erythema and interarytenoid edema. No obvious mucosal lesion noted. The vocal cords moved well bilaterally. There was supraglottic compression with phonation. Buzz Santiago MD [facility] 11-30-2022 History of Present illness Narrative This consult is seen at the kind request of Dr. Coni Rogers of family medicine, and my final recommendations will be communicated to the requesting health care provider by way of shared electronic medical record. This note is formatted with the impression and plan first and the history and physical to follow. IMPRESSION 62-year-old male with dysphonia possibly due to laryngopharyngeal reflux. RECOMMENDATION/PLAN I recommend a trial of Prilosec 40 mg once a day for 3 months. If patient's voice fail to improve, we can consider voice therapy with speech. I informed him that I would like to see him back if his voice gets worse. Chief Complaint Hoarseness History of Present Illness Hollie Stover is a 62 year old male present for evaluation of hoarseness of his voice. Patient stated that for the last 4 months, he has been having some hoarseness intermittently. It all started with what sounds like laryngitis where he lost his voice. Slowly, his voice return but has never gone back to normal. Patient denies any heartburn. He denies any dysphagia, odynophagia, sore throat, or shortness of breath. He is a former smoker with 32-ldqs-ofah smoking history. PAST MEDICAL HISTORY Diagnosis Date Arthritis History of transfusion Nonspecific elevation of levels of transaminase or lactic acid dehydrogenase (LDH) Other psoriasis and similar disorders Psoriasis Psoriatic arthritis (HCC) Sleep apnea PAST SURGICAL HISTORY Procedure Laterality Date COLONOSCOPY FLX DX W/COLLJ SPEC WHEN PFRMD 04/18/2013 Colonoscopy FAMILY HISTORY Problem Relation Age of Onset Diabetes Father Ischemic Heart Disease Father other (unknown) Mother CURRENT OUTPATIENT MEDICATIONS Current Outpatient Medications on File Prior to Visit Medication Sig CPAP/BIPAP/OTHER Type .CPAPSettings into a note to see current settings/supplies/DME information. CPAP Initiate Auto PAP @ 5-20 cm of water with humidification. Mask (per patient preference) optional chin strap (if indicated) , filters, tubing, humidifier and lifetime supplies. secukinumab (COSENTYX) 150 mg/mL injection Inject 150 mg subcutaneously once every month. No current facility-administered medications on file prior to visit. ALLERGIES ALLERGIES No Known Allergies The remainder of the patient's history and review of systems is on the outpatient questionaire which was reviewed by me and placed in the outpatient chart. PHYSICAL EXAMINATION Appearance: General examination of the patient's external face, head and neck reveals no abnormalities. The patient is not retrognathic The patient's voice is strong and clear and they communicate easily. Ears: Exam of the ears revealed normal appearing external auditory canals, tympanic membranes, and middle ears. No signs of infection or fluid were seen. Nose: External nasal exam showed external deviation of the nasal dorsum to the left. Throat: There were no lesions to visualization or palpation of the lips, cheeks, gums, floor of mouth, tongue, hard and soft palate, tonsillar pillars or posterior pharyngeal wall. Neck: Palpation of the neck revealed no adenopathy, salivary gland masses or asymmetry, or thyroid masses or enlargement. Procedure Flexible laryngoscopy was performed because of the following indication: hyperactive gag and dysphonia: After spraying the nose with 4% xylocaine and 0.5% oxymetazoline, the flexible scope was placed in a transnasal fashion. Bilateral septal deviation. The caudal septum was severely deviated to the left side and there is posterior deviation to the right. The nasopharynx, oropharynx, hypopharynx including the pyriform sinuses were normal. The base of tongue showed no gross lesions. The larynx itself showed mild erythema and interarytenoid edema. No obvious mucosal lesion noted. The vocal cords moved well bilaterally. There was supraglottic compression with phonation. Buzz Santiago MD documented in this encounter [facility] 11-01-2022 Miscellaneous Notes Done Type of form: [place] Form received via walk in When form is completed, Fax form to [phone] Form has been forwarded to [facility] Sabra Stover - will pick up worker the second set of papers [phone] documented in this encounter [facility] 11-01-2022 Note HNO ID: [id number] Author: Coni Rogers MD Service: ? Author Type: Physician Type: Progress Notes Filed: 11/01/2022 10:11 AM Note Text: CHIEF COMPLAINT Patient presents with: F/U 3 Month HISTORY OF PRESENT ILLNESS Hollie Stover is a 61 year old male who presents here today for 3 month follow-up. I last saw this patient on 07/08/2022. Patient is accompanied by his . Hoarseness Patient states his voice has been hoarse, throat is scratchy He has endorsed these symptoms for the last 5-6 weeks Also reports frequent dry mouth. Not painful. Mood Patient is no longer taking his fluoxetine States he does not need a mind altering drug His mentions that he has been more irritable and angry, easily flies off the handle since stopping the drug . He stopped drinking for a bit and is now drinking again but less (few beers a day) Alcohol Use Patient is still drinking 3-4 beers/day every day He does not feel like this is significant enough that he needs to cut back/quit Carpal Tunnel Syndrome EMG study on 07/28/2022 that revealed severe bilateral CTS Scheduled for bilateral carpal tunnel release 01/16/2023 PAT Patient is using his CPAP, he can't tell if it really helps. States his has not noticed him snoring , still some fatigue History of Smoking Former 1ppd smoker Quit smoking in 2009 Health Maintenance Flu vaccine HIV screening Shingrix vaccine Covid-19 vaccine Labs reviewed. Past medical history, appointments, medications, allergies reviewed. REVIEW OF SYSTEMS General: Feels well, no fever, no chills. HEENT: + hoarseness, + scratchy throat, No sinus congestion, sleep apnea as above. Cardiac: No chest pain, palpitations Resp: No cough, wheeze, shortness of breath GI: No reflux symptoms, food intolerance, bowel changes. : No urinary frequency, dysuria. MS: + CTS, No swelling PAST MEDICAL HISTORY PAST MEDICAL HISTORY Diagnosis Date Arthritis History of transfusion Nonspecific elevation of levels of transaminase or lactic acid dehydrogenase (LDH) Other psoriasis and similar disorders Psoriasis Psoriatic arthritis (HCC) Sleep apnea PHYSICAL EXAMINATION BP 105/67 Pulse 87 Ht 177.8 cm (5' 10) Wt 94.8 kg (209 lb) SpO2 95% BMI 29.99 kg/m? General: Alert, well developed, well nourished, no distress, pleasant and cooperative. Heart: Regular rate and rhythm. Normal S1 and S2. No murmurs, rubs, or gallops. Lungs: Clear to auscultation bilaterally. No respiratory distress. No wheezes, rales, or rhonchi. Abdomen: Soft, non-tender, no distention. Extremities: Feet/ankles without edema, posterior tibial pulses full and symmetrical. Data Reviewed Component Latest Ref Rng AND Units 03/09/2021 WBC 3.70 - 11.00 k/uL 4.84 RBC 4.20 - 6.00 m/uL 4.77 Hemoglobin 13.0 - 17.0 g/dL 14.3 Hematocrit 39.0 - 51.0 % 44.3 MCV 80.0 - 100.0 fL 92.9 MCH 26.0 - 34.0 pG 30.0 MCHC 30.5 - 36.0 g/dL 32.3 RDW-CV 11.5 - 15.0 % 12.7 Platelet Count 150 - 400 k/uL 234 MPV 9.0 - 12.7 fL 12.0 Neut% % 59.7 Abs Neut (ANC) 1.45 - 7.50 k/uL 2.88 Lymph% % 25.2 Abs Lymph 1.00 - 4.00 k/uL 1.22 [place]% % 9.5 Abs [place] <0.87 k/uL 0.46 Eosin% % 4.8 Abs Eosin <0.46 k/uL 0.23 Baso% % 0.8 Abs Baso <0.11 k/uL 0.04 Nucleated Reds 0 /100 WBC 0.0 Absolute nRBC <0.01 k/uL <0.01 Diff Type Auto Diff Protein, Total 6.3 - 8.0 g/dL 7.2 Albumin 3.9 - 4.9 g/dL 4.3 Calcium 8.5 - 10.2 mg/dL 9.5 Bilirubin, Total 0.2 - 1.3 mg/dL 0.6 Alkaline Phosphatase 38 - 113 U/L 74 AST 14 - 40 U/L 38 Glucose 74 - 99 mg/dL 97 BUN 9 - 24 mg/dL 13 Creatinine 0.73 - 1.22 mg/dL 0.71 (L) Sodium 136 - 144 mmol/L 140 Potassium 3.7 - 5.1 mmol/L 3.8 Chloride 97 - 105 mmol/L 104 CO2 22 - 30 mmol/L 22 Anion Gap 9 - 18 mmol/L 14 ALT 10 - 54 U/L 42 eGFR- >60 eGFR-All Other Races . >60 Cholesterol, Total <200 mg/dL 220 (H) Triglyceride <150 mg/dL 130 HDL Cholesterol >39 mg/dL 46 LDL Cholesterol <100 mg/dL 148 (H) Non HDL Cholesterol <130 mg/dL 174 (H) Fasting Time hrs Unknown VLDL Cholesterol <30 mg/dL 26 TC:HDL Ratio <5.10 4.78 LDL:HDL Ratio <2.54 3.22 (H) PSA Screening <2.60 ng/mL 1.35 Assessment/Plan (F43.23) Adjustment disorder with mixed anxiety and depressed mood (primary encounter diagnosis) Comment: patient is no longer taking fluoxetine, his has noticed increase in irritability and anger as a result. Appears to be using alcohol as coping mechanism, drinking 3-4 cans of beer/day. Plan: COMP METABOLIC PANEL Encouraged patient to challenge himself by ceasing alcohol consumption for the next 3 months Discussed establishing with a counselor, starting a medication, and/or joining a support group. He is skeptical about all of the above. (R49.0) Hoarse voice quality Comment: consider vocal cord nodule vs reflux. Recommend ENT to consider laryngoscopy to r/o possible nodules vs reflux Gibran (more content not included)... [facility] 11-01-2022 History of Present illness Narrative CHIEF COMPLAINT Patient presents with: F/U 3 Month HISTORY OF PRESENT ILLNESS Hollie Stover is a 61 year old male who presents here today for 3 month follow-up. I last saw this patient on 07/08/2022. Patient is accompanied by his . Hoarseness Patient states his voice has been hoarse, throat is scratchy He has endorsed these symptoms for the last 5-6 weeks Also reports frequent dry mouth. Not painful. Mood Patient is no longer taking his fluoxetine States he does not need a mind altering drug His mentions that he has been more irritable and angry, easily flies off the handle since stopping the drug . He stopped drinking for a bit and is now drinking again but less (few beers a day) Alcohol Use Patient is still drinking 3-4 beers/day every day He does not feel like this is significant enough that he needs to cut back/quit Carpal Tunnel Syndrome EMG study on 07/28/2022 that revealed severe bilateral CTS Scheduled for bilateral carpal tunnel release 01/16/2023 PAT Patient is using his CPAP, he can't tell if it really helps. States his has not noticed him snoring , still some fatigue History of Smoking Former 1ppd smoker Quit smoking in 2009 Health Maintenance Flu vaccine HIV screening Shingrix vaccine Covid-19 vaccine Labs reviewed. Past medical history, appointments, medications, allergies reviewed. REVIEW OF SYSTEMS General: Feels well, no fever, no chills. HEENT: + hoarseness, + scratchy throat, No sinus congestion, sleep apnea as above. Cardiac: No chest pain, palpitations Resp: No cough, wheeze, shortness of breath GI: No reflux symptoms, food intolerance, bowel changes. : No urinary frequency, dysuria. MS: + CTS, No swelling PAST MEDICAL HISTORY PAST MEDICAL HISTORY Diagnosis Date Arthritis History of transfusion Nonspecific elevation of levels of transaminase or lactic acid dehydrogenase (LDH) Other psoriasis and similar disorders Psoriasis Psoriatic arthritis (HCC) Sleep apnea PHYSICAL EXAMINATION BP 105/67 Pulse 87 Ht 177.8 cm (5' 10) Wt 94.8 kg (209 lb) SpO2 95% BMI 29.99 kg/m General: Alert, well developed, well nourished, no distress, pleasant and cooperative. Heart: Regular rate and rhythm. Normal S1 and S2. No murmurs, rubs, or gallops. Lungs: Clear to auscultation bilaterally. No respiratory distress. No wheezes, rales, or rhonchi. Abdomen: Soft, non-tender, no distention. Extremities: Feet/ankles without edema, posterior tibial pulses full and symmetrical. Data Reviewed Component Latest Ref Rng & Units 03/09/2021 WBC 3.70 - 11.00 k/uL 4.84 RBC 4.20 - 6.00 m/uL 4.77 Hemoglobin 13.0 - 17.0 g/dL 14.3 Hematocrit 39.0 - 51.0 % 44.3 MCV 80.0 - 100.0 fL 92.9 MCH 26.0 - 34.0 pG 30.0 MCHC 30.5 - 36.0 g/dL 32.3 RDW-CV 11.5 - 15.0 % 12.7 Platelet Count 150 - 400 k/uL 234 MPV 9.0 - 12.7 fL 12.0 Neut% % 59.7 Abs Neut (ANC) 1.45 - 7.50 k/uL 2.88 Lymph% % 25.2 Abs Lymph 1.00 - 4.00 k/uL 1.22 Cortland% % 9.5 Abs Cortland <0.87 k/uL 0.46 Eosin% % 4.8 Abs Eosin <0.46 k/uL 0.23 Baso% % 0.8 Abs Baso <0.11 k/uL 0.04 Nucleated Reds 0 /100 WBC 0.0 Absolute nRBC <0.01 k/uL <0.01 Diff Type Auto Diff Protein, Total 6.3 - 8.0 g/dL 7.2 Albumin 3.9 - 4.9 g/dL 4.3 Calcium 8.5 - 10.2 mg/dL 9.5 Bilirubin, Total 0.2 - 1.3 mg/dL 0.6 Alkaline Phosphatase 38 - 113 U/L 74 AST 14 - 40 U/L 38 Glucose 74 - 99 mg/dL 97 BUN 9 - 24 mg/dL 13 Creatinine 0.73 - 1.22 mg/dL 0.71 (L) Sodium 136 - 144 mmol/L 140 Potassium 3.7 - 5.1 mmol/L 3.8 Chloride 97 - 105 mmol/L 104 CO2 22 - 30 mmol/L 22 Anion Gap 9 - 18 mmol/L 14 ALT 10 - 54 U/L 42 eGFR- >60 eGFR-All Other Races . >60 Cholesterol, Total <200 mg/dL 220 (H) Triglyceride <150 mg/dL 130 HDL Cholesterol >39 mg/dL 46 LDL Cholesterol <100 mg/dL 148 (H) Non HDL Cholesterol <130 mg/dL 174 (H) Fasting Time hrs Unknown VLDL Cholesterol <30 mg/dL 26 TC:HDL Ratio <5.10 4.78 LDL:HDL Ratio <2.54 3.22 (H) PSA Screening <2.60 ng/mL 1.35 Assessment/Plan (F43.23) Adjustment disorder with mixed anxiety and depressed mood (primary encounter diagnosis) Comment: patient is no longer taking fluoxetine, his has noticed increase in irritability and anger as a result. Appears to be using alcohol as coping mechanism, drinking 3-4 cans of beer/day. Plan: COMP METABOLIC PANEL Encouraged patient to challenge himself by ceasing alcohol consumption for the next 3 months Discussed establishing with a counselor, starting a medication, and/or joining a support group. He is skeptical about all of the above. (R49.0) Hoarse voice quality Comment: consider vocal cord nodule vs reflux. Recommend ENT to consider laryngoscopy to r/o possible nodules vs reflux Plan: CONSULT TO ENT, COMP METABOLIC PANEL (G47.33) PAT (obstructive sleep apnea) Comment: on CPAP, unclear if helping. e Plan: COMP METABOLIC PANEL (G56.03) Carpal tunnel syndrome, bilateral Comment: scheduled for bilateral carpal tunnel release 01/16/2023 Plan: following with orthopedics (E78.00) Pure hypercholesterolemia Comment: history of elevated cholesterol, due for labs Plan: LIPID PANEL BASIC RTO: 1-2 months Scribe Attestation: By signing my name below, Gina Dan, attest that this documentation has been prepared under the direction and in the presence of Florentino Rogers M.D. Electronically Signed: Katherine Abel. November 01, 2022 12:40 AM Provider Attestation: Coni Dan MD, personally performed the services described in this documentation. All medical record entries made by the scribe were at my direction and in my presence. I have reviewed the chart and discharge instructions (if applicable), and agree that the record reflects my personal performance and is accurate and complete. Electronically Signed: Coni Rogers MD November 01, 2022 10:00 AM documented in this encounter [facility] 10-11-2022 History of Present illness Narrative Images from the original note were not included. Ashkan Rivas PA-C [facility] [address] [address] 10/11/2022 ASSESSMENT AND PLAN: Assessment : Encounter Diagnosis ICD-10-CM 1. Cervical radiculopathy at C6 M54.12 2. Carpal tunnel syndrome, bilateral G56.03 Discussion: Mr. Stover is a pleasant 61-year-old man here for evaluation of his cervical spine. He is being seen by orthopedics and evaluated and treating for bilateral severe carpal tunnel syndrome. He had EMG study on 07/28/2022 that revealed severe bilateral CTS as well as right greater than left C6 radiculopathy. Patient denies motion related symptoms in the cervical spine. He has some posterior neck pain and he describes bilateral UE symptoms at night worse on what ever side he is laying on. EXAM Highlights: He has normal mobilization, stance, gait, balance, strength, reflexes. Sensory paresthesias and deficits are primarily in the distal aspects of the upper extremities and are difficult to distinguish separately as being C6-related. Cervical motion is diminished as expected for his age but does not reproduce any radicular symptoms with Spurling's maneuver No signs of myelopathy on exam today He has intermittent tingling in the hands, exacerbated by holding his arms over his head IMAGING: No cervical imaging is available for review SUMMARY/PLAN: He would like to hold off on further cervical treatment at this point. I offered consideration of physical therapy, x-ray evaluation, consideration of gabapentin especially for nighttime use, but he would like to hold off on all of these for now while he pursues bilateral carpal tunnel release coming up in December 2022. He will let me know if symptoms change or worsen regarding the cervical spine. Plan : FOLLOW-UP: -The patient is instructed to return as needed. ADDITIONAL DISCUSSION: -I discussed red flag symptoms for cord compromise which include, but are not limited to, bowel or bladder incontinence, gait ataxia, bilateral or progressive weakness or numbness in the upper or lower limbs. If any of these occur, patient is directed to seek urgent medical attention. -We discussed the difference between hurt vs harm as it relates to chronic pain. This document has been created with the use of voice recognition technology. It may contain inaccuracies: (e.g. misspellings, inaccurate syntax or word sense) that have escaped review. Time spent: 35 minutes today with this patient visit. This includes [id number] time, review of chart records regarding conservative care history, spine-pertinent imaging, and communication/care coordination with referring provider, problem-specific history-taking and counseling/education regarding treatment options. cc: Stephania Tinsley [address] [facility] [address] [facility] [address] Results of consultation to be transmitted via electronic medical record for those providers who practice within [facility] or with access to [employer] via MD Connect, or via letter. ____ ################################## ################################## #### CHIEF COMPLAINT: Patient is here for the neck pain, and both shoulders, tingling in the thumb, index and middle fingers- on both hands- tingling is worse at night. Has this pain for years and it is getting worse. Level of the pain is at 4/10. 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 Spinal Injections: He has not gotten prior spinal injections. Other: None Current Outpatient Medications Medication Sig Dispense Refill FLUoxetine (PROZAC) 40 mg capsule Take 1 capsule by mouth once daily. 30 capsule 2 CPAP/BIPAP/OTHER Type .CPAPSettings into a note to see current settings/supplies/DME information. 1 Each 0 CPAP Initiate Auto PAP @ 5-20 cm of water with humidification. Mask (per patient preference) optional chin strap (if indicated) , filters, tubing, humidifier and lifetime supplies. 1 Each 0 secukinumab (COSENTYX) 150 mg/mL injection Inject 150 mg subcutaneously once every month. No current facility-administered medications for this visit. Allergies: Patient has no known allergies. PAST MEDICAL HISTORY Diagnosis Date Arthritis History of transfusion Nonspecific elevation of levels of transaminase or lactic acid dehydrogenase (LDH) Other psoriasis and similar disorders Psoriasis Psoriatic arthritis (HCC) Sleep apnea PAST SURGICAL HISTORY Procedure Laterality Date COLONOSCOPY FLX DX W/COLLJ SPEC WHEN PFRMD 04/18/13 Colonoscopy NONE Social History Tobacco Use Smoking status: Former Types: Cigarettes Quit date: 09/14/2009 Years since quittin.0 Smokeless tobacco: Never Vaping Use Vaping Use: Never used Substance Use Topics Alcohol use: Yes Comment: Socially Drug use: No FAMILY HISTORY Problem Relation Age of Onset Diabetes Father Ischemic Heart Disease Father other (unknown) Mother REVIEW OF SYSTEMS: Constitutional: (-) Fever/Chills (+) Night Sweats (-) Weight Gain (-) Weight Loss (+) Fatigue hands - fingers tingling will wake him up Gastrointestinal: (-) Abdominal Pain (-) Diarrhea (-) Constipation (-) Nausea/Vomiting (-) Heart Burn Cardiovascular: (-) Chest Pain (-) Palpitations (-) Lightheadedness (-) Swelling of Ankles (-) Hx Heart Surgery/Stent Respiratory: (-) Short of Breath (-) Cough (+) Snoring CPAP Neurologic: (-) Headache (-) Blurry Vision (-) Fainting Skin: (-) Rashes (+) Itching (-) Other Lesions Psychiatric: (-) Depression (-) Anxiety (-) Suicidal Thoughts Genitourinary: (-) Frequency (-) Urgency Endocrine: (-) Thyroid Disorder (-) Diabetes Hematologic: (-) Prolonged Bleeding (-) Easy Bruising ################################## ################################## ################################## ########################### PHYSICAL EXAM: Blood pressure 126/72, pulse 72, height 177.8 cm (5' 10), weight 96.2 kg (212 lb), SpO2 95 %. Body mass index is 30.42 kg/m . General: Patient is a(n) average historian. The patient appears approximately the recorded age and is sitting comfortably in the examining room. The patient is average height in stature and is overweight in appearance. This individual has no difficulty arising from a sitting position and does not have difficulty acquiring a full, upright position when standing. Station and Gait: Normal stance, normal gait. The patient is easily able to walk in a tandem gait. MENTAL STATUS EXAMINATION: The patient was casually attired. The patient had good eye contact and rapport was average to establish. The patient appeared to be alert and oriented in all spheres. The patient's overall medical judgment appeared to be good.The patient's motivation for treatment was judged based on today's encounter to be fair. SPINE: Cervical Lordosis: Normal Thoracic Kyphosis: Normal Skin: Normal-no rashes, bruises, lesions, or signs of localized trauma., Skin color, texture and turgor normal. Paraspinal atrophy: No Range of Motion: Flexion: 0 fingerbreadths from chin to chest Pain: Yes Extension: painful at end range of motion Rotation: Right: painful at end range of motion Left: painful at end range of motion PALPATION TENDERNESS: Mild tenderness at: cervical spine and shoulders/trapezius Hyperesthesia present: No Regional symptoms present: No Increased pain with axial loading: No Distraction: Normal Pain responses: appropriate NEUROLOGIC EXAM: Requires verbal cues to minimize cog-wheel or give-way resistance: No MOTOR: Deltoid R: 5/5 L: 5/5 Biceps R: 5/5 L: 5/5 Wrist Extension R: 5/5 L: 5/5 Wrist Flexion R: 5/5 L: 5/5 Triceps R: 5/5 L: 5/5 Counter Manager R: 5/5 L: 5/5 Interossei R: 5/5 L: 5/5 SENSATION to Light Touch: Cervical: Primarily distal UE intermittent numbness and tingling, but not during today's visit. Thoracic: T1-L1 symmetrically normal. Spurling's: Reproduces axial pain only. REFLEXES: Upper Extremity: All Upper Extremity reflexes symmetrically normal. Lower Extremity: All Lower Extremity reflexes symmetrically normal. Oliva's: Negative bilaterally. Clonus: R: 0 beats/Normal L: 0 beats/Normal Babinski Sign Present: Negative bilaterally. IMAGING STUDIES: See discussion above documented in this encounter [facility] 10-10-2022 Miscellaneous Notes Pharmacy verified in [facility] Patient has been identified by name and date of : Yes Patient aware RX will be sent to pharmacy. No need to notify patient. Pharmacy phones for refill(s): Requested Prescriptions Pending Prescriptions Disp Refills FLUoxetine (PROZAC) 40 mg capsule 30 capsule 2 Sig: Take 1 capsule by mouth once daily. Date of last office visit : 07/07/2022 Date of next office visit : 10/31/2022 Last 2 Encounter Wt Readings: Date: Wt: 07/07/2022 90.3 kg (199 lb) 06/07/2022 94.3 kg (208 lb) Not applicable Please advise. Vicky Espinoza documented in this encounter [facility] 09-20-2022 Miscellaneous Notes Received 09/20/2022 from Noel. Placed in provider's inbox for review. Route to [place] for faxing. documented in this encounter [facility] 09-06-2022 History of Present illness Narrative Images from the original note were not included. Reason for Visit/Chief Complaint Hollie Stover is a 61 year old male who presents today for a new evaluation of following complaint: Patient presents with: Left Wrist - New, Pain Right Wrist - New, Pain History of Present Illness: PAIN EVALUATION 09/06/2022 1520 Pain Level: 4 Pain Location: -- bilateral wrist Duration Units: Years Frequency: Intermittent HPI: Hollie Stover is a 61 year old male presenting today with bilateral wrist pain. Patient has been experiencing numbness/tingling for years now with no specific injury. Does have a history of working with his hands a lot. Pain history is noted as above. Previous Treatments: Ice: No Heat: No Brace: No NSAIDs: No Injections: No Surgeries: No Physical Therapy: No Review of Systems: Patient did not have, and does not currently have, any weight loss, malaise, fever, chills, headache, chest pain, chest pressure, palpitations, cough, shortness of breath, orthopnea, paroxsymal nocturnal dyspnea, nausea, vomiting, diarrhea, constipation, melena, hematochezia, urinary difficulties, prolonged bleeding, easily bruising, heat or cold intolerance, new onset joint pain or swelling, new onset extremity weakness or numbness, new onset auditory or visual disturbances, lightheadedness, dizziness, partial loss of consciousness or full loss of consciousness. Current Outpatient Medications on File Prior to Visit Medication Sig FLUoxetine (PROZAC) 40 mg capsule Take 1 capsule by mouth once daily. CPAP/BIPAP/OTHER Type .CPAPSettings into a note to see current settings/supplies/DME information. (Patient not taking: Reported on 07/07/2022) CPAP Initiate Auto PAP @ 5-20 cm of water with humidification. Mask (per patient preference) optional chin strap (if indicated) , filters, tubing, humidifier and lifetime supplies. (Patient not taking: No sig reported) secukinumab (COSENTYX) 150 mg/mL injection Inject 150 mg subcutaneously once every month. No current facility-administered medications on file prior to visit. ALLERGIES No Known Allergies Physical Exam: Vitals: There were no vitals taken for this visit. Psych: Pleasant, good affect and mood General Appearance: Well appearing, alert, in no acute distress, well-hydrated, well nourished.. Skin: Skin color, texture, turgor normal, no suspicious rashes or lesions. Peripheral Pulses: Normal. Neurologic: Gait normal. Reflexes normal and symmetric. Sensation grossly intact.. Lymph Nodes: No cervical lymphadenopathy, No supraclavicular lymphadenopathy, No axillary lymphadenopathy., and No inguinal lymphadenopathy.. Respiratory: No recent pulmonary infection, hemoptysis, chronic cough, or shortness of breath at rest Rheumatologic: Joint deformities: bilateral hand numbness Right Hand Exam Right hand exam is normal. Tenderness The patient is experiencing no tenderness. Range of Motion The patient has normal right wrist ROM. Wrist Extension: normal Flexion: normal Pronation: normal Supination: normal Muscle Strength The patient has normal right wrist strength. Overlock Sleeve Setter: 4/5 Tests Phalen s Sign: negative Tinel's sign (median nerve): positive Faizan's test: negative Other Erythema: absent Sensation: decreased Pulse: present Comments: B/l /uln/rad/ax nerves intact Left Hand Exam Left hand exam is normal. Tenderness The patient is experiencing no tenderness. Range of Motion The patient has normal left wrist ROM. Wrist Extension: normal Flexion: normal Pronation: normal Supination: normal Muscle Strength The patient has normal left wrist strength. Overlock Sleeve Setter: 4/5 Tests Phalen s Sign: negative Tinel's sign (median nerve): positive Faizan's test: negative Other Erythema: absent Sensation: decreased Pulse: present Comments: B/l dec 2 pt discrimination med nerve, atrophy thenar right>left Imaging: Last XR Wrist - Impression Only No resulted procedures found. Last XR Hand/Finger - Impression Only XR HAND GENERAL 3V PA/LAT/OBL BILATERAL Exam End: 09/06/2022 3:17 PM (Final result) Impression: IMPRESSION: No acute abnormality Travel Registered Nurse Nicu: RACHELLE Transcribe Date/Time: Sep 10 2022 3:08P Dictated by : SIERRA CHAVEZ MD ... Electrodiagnostic examination of the right upper limb with additional nerve conduction and needle electrode studies of the left upper limb, reveals changes most consistent with the followin. Bilateral median mononeuropathies at or distal to the wrist (consistent with a clinical diagnosis of carpal tunnel syndrome), severe in degree bilaterally. 2. Active/ongoing on chronic intraspinal canal lesion (ie: motor radiculopathy) affecting the right C6 root/segment, mild in degree electrically. Similar changes are seen in the left biceps muscle suggesting this is a bilateral process. Addendum This examination was interpreted and electronically signed by: Tonny Loera on July 28, 2022 at 2:49 PM Assessment and Plan: Impression: Encounter Diagnosis ICD-10-CM 1. Carpal tunnel syndrome of left wrist G56.02 2. Carpal tunnel syndrome, bilateral G56.03 3. Carpal tunnel syndrome of right wrist G56.01 4. Cervical radiculopathy at C6 M54.12 [facility]ULT TO [facility] Plan: Today, in detail, through a thorough evaluation, we discussed possible etiologies of pain and our plans for further diagnostic and therapeutic interventions. We discussed strategies for decreasing pain and improving strength, stability and motion. Patient's questions were answered in detailed. Patient verbalizes understanding and agrees with the treatment plan as discussed. Risks and benefits vs alternatives to treatment were discussed with patient. Risks including but not limited to blood loss, blood clot, infection, neurovascular injury, failure of procedure, need for revision operation, loss of life and loss of limb. Patient aware of risks and benefits and agrees to proceed with written consent for surgical intervention. Discussed also needs to see spine for emg results as above Referred to spine for eval, emg shows c6 radiculopathy Discussed surgery for cts will not help with all of his sxs, and needs to see spine as well; referral placed Patient aware and in agreement of plan. All questions answered. Stephania Tinsley D.O. M.P.H. documented in this encounter [facility] 09-06-2022 History of Present illness Narrative Radiology Service Progress Note PATIENT NAME: Hollie Stover DATE OF SERVICE: September 06, 2022 TIME: 3:18 PM PATIENT IDENTITY VERIFICATION COMPLETED USING TWO (2) IDENTIFIERS: Name and Date of confirmed by patient verbally. FALL SCREENING: Has the patient had 2 falls in the last year or 1 fall with injury or currently using an Ambulatory Assistive Device (Walker, Cane, Wheelchair, Crutches, etc.)? No PATIENT GENDER DATA: Male PATIENT RELEVANT IMPLANT DATA REVIEWED: Not Applicable RADIOLOGY DEPARTMENT: General X-ray: Exam(s) Completed: Upper Extremity X-Ray(s): Hand, bilateral PERIPHERAL IV DATA: Not applicable SIGNED BY: KELLEY Amezcua September 06, 2022 3:18 PM documented in this encounter [facility] 08-02-2022 Miscellaneous Notes 1st try Spoke to patient and spouse who was provided with message below and verbalized understanding. Patient is requesting assistance with OV with Ortho for carpel tunnel consult. Message left to CB Let patient know that his EMG study confirmed a diagnosis of severe carpal tunnel syndrome in both upper extremities. There also seemed to be a nerve deficit stemming from his cervical spine, which was mild, and likely from his known arthritis in the spine. Would recommend he consult with the orthopedist about his carpal tunnel syndrome first and can follow up on the spine later. Orthopedics consult placed, assist with scheduling. Sally Sunshine APRN.RAFAEL documented in this encounter [facility] 07-28-2022 History of Present illness Narrative UNIVERSAL PROTOCOL / SAFETY CHECKLIST Procedure to be Performed: EMG Sign In: A Moment of CARE was completed. Personnel directly involved with the procedure wore the appropriate PPE (Personal Protective Equipment). Patient/Surrogate Stated/Verified: PATIENT VERIFIED(optional for EMERGENT procedures): Patient name, Date of , Relevant allergies, and The intended procedure Time Out Communication: Intended patient and procedure match the source documents. Correct side/site marked and visible. Sign Out: SIGN OUT (optional for EMERGENT procedures): Post-procedure follow-up management communicated and Plan of Care Visit completed when applicable. WALESKA Nguyen.Pacheco Loera DO documented in this encounter [facility] 07-07-2022 History of Present illness Narrative CHIEF COMPLAINT Patient presents with: Follow Up: medications HISTORY OF PRESENT ILLNESS Hollie Stover is a 61 year old male who presents here today for medication follow up. I last saw this patient on 06/07/22. Prozac: Pt's feels husbands medication need increased. Prozac. Endorses he is less edgy. He has been on it for a month. Pt lost weight since starting the medication. However he states he is tired. Sleep: Pt reports his at home sleep study was done a year ago. Sleep medicine wants him to use the auto CPAP machine before he can get in for a sleep study at site. However he can not get a CPAP covered until he completed a sleep study on site. Labs reviewed. Past medical history, appointments, medications, allergies reviewed. REVIEW OF SYSTEMS General: Feels well, no fever, no chills. HEENT: No sinus congestion, earache, sore throat. Cardiac: No chest pain, palpitations Resp: No cough, wheeze, shortness of breath GI: No reflux symptoms, food intolerance, bowel changes. : No urinary frequency, dysuria. MS: No pain or joint complaints. PAST MEDICAL HISTORY PAST MEDICAL HISTORY Diagnosis Date Arthritis History of transfusion Nonspecific elevation of levels of transaminase or lactic acid dehydrogenase (LDH) Other psoriasis and similar disorders Psoriasis Psoriatic arthritis (HCC) Sleep apnea PHYSICAL EXAMINATION BP 106/59 Pulse 80 Ht 177.8 cm (5' 10) Wt 90.3 kg (199 lb) BMI 28.55 kg/m General: Alert, well developed, well nourished, no distress, pleasant and cooperative. Heart: Regular rate and rhythm. Normal S1 and S2. No murmurs, rubs, or gallops. Lungs: Clear to auscultation bilaterally. No respiratory distress. No wheezes, rales, or rhonchi. Abdomen: Soft, non-tender, no distention. Data Reviewed Latest Reference Range & Units 03/09/21 16:00 Sodium 136 - 144 mmol/L 140 Potassium 3.7 - 5.1 mmol/L 3.8 Chloride 97 - 105 mmol/L 104 CO2 22 - 30 mmol/L 22 BUN 9 - 24 mg/dL 13 Creatinine 0.73 - 1.22 mg/dL 0.71 (L) Glucose 74 - 99 mg/dL 97 Protein, Total 6.3 - 8.0 g/dL 7.2 Calcium 8.5 - 10.2 mg/dL 9.5 Albumin 3.9 - 4.9 g/dL 4.3 Bilirubin, Total 0.2 - 1.3 mg/dL 0.6 Alkaline Phosphatase 38 - 113 U/L 74 ALT 10 - 54 U/L 42 AST 14 - 40 U/L 38 Anion Gap 9 - 18 mmol/L 14 eGFR- >60 eGFR-All Other Races . >60 Cholesterol, Total <200 mg/dL 220 (H) Triglyceride <150 mg/dL 130 Fasting Time hrs Unknown HDL Cholesterol >39 mg/dL 46 LDL Cholesterol <100 mg/dL 148 (H) VLDL Cholesterol <30 mg/dL 26 TC:HDL Ratio <5.10 4.78 LDL:HDL Ratio <2.54 3.22 (H) Non HDL Cholesterol <130 mg/dL 174 (H) PSA Screening <2.60 ng/mL 1.35 WBC 3.70 - 11.00 k/uL 4.84 RBC 4.20 - 6.00 m/uL 4.77 Hemoglobin 13.0 - 17.0 g/dL 14.3 Hematocrit 39.0 - 51.0 % 44.3 Platelet Count 150 - 400 k/uL 234 MCV 80.0 - 100.0 fL 92.9 MCH 26.0 - 34.0 pG 30.0 MCHC 30.5 - 36.0 g/dL 32.3 MPV 9.0 - 12.7 fL 12.0 RDW-CV 11.5 - 15.0 % 12.7 Neut% % 59.7 Abs Neut (ANC) 1.45 - 7.50 k/uL 2.88 Lymph% % 25.2 Abs Lymph 1.00 - 4.00 k/uL 1.22 Cortland% % 9.5 Abs [place] <0.87 k/uL 0.46 Eosin% % 4.8 Abs Eosin <0.46 k/uL 0.23 Baso% % 0.8 Abs Baso <0.11 k/uL 0.04 Nucleated Reds 0 /100 WBC 0.0 Absolute nRBC <0.01 k/uL <0.01 Diff Type Auto Diff (L): Data is abnormally low (H): Data is abnormally high Assessment/Plan Pt is compliant with medication. He states he feels better, some fatigue Increase Prozac to 40 mg tablet. See if side effecte persist/ worsen vs improvement in mood. Can try other Rx's if needed. Requested Prescriptions Signed Prescriptions Disp Refills FLUoxetine (PROZAC) 40 mg capsule 30 capsule 2 Sig: Take 1 capsule by mouth once daily. RTO: Follow up in 1 month for recheck. Scribe Attestation: By signing my name below, I, Rita Daley, attest that this documentation has been prepared under the direction and in the presence of Florentino Rogers M.D. Electronically Signed: Katherine Henson. July 07, 2022 3:27 PM Provider Attestation: I, Coni Rogers MD, personally performed the services described in this documentation. All medical record entries made by the scribe were at my direction and in my presence. I have reviewed the chart and discharge instructions (if applicable) and agree that the record reflects my personal performance and is accurate and complete. Electronically Signed: Coni Rogers MD July 07, 2022 5:59 PM documented in this encounter [facility] 06-20-2022 Miscellaneous Notes Orders, face sheet, home study and office note faxed to [facility]. PAP therapy orders completed, please fax to [facility], alex in outbox. Sally Sunshine APRN.RAFAEL Discussed message below with . [facility] is approved [facility]-please send script there. Will call to schedule 1 month f/u after they receive PAP. Velma Cheek RN Reason for Disposition Health Information question, no triage required and triager able to answer question Protocols used: Information Only Call - No [id number] LM for patient to call office. Please let patient know that his insurance company won't allow him to have the in-person sleep study at this time and must trial PAP therapy at home first. Ask him to find out what DME company he uses and we'll fax over the prescription. Schedule a follow up visit in the office 1 month after starting the PAP therapy to re-evaluate. Sally Sunshine APRN.RAFAEL documented in this encounter [facility] 06-07-2022 History of Present illness Narrative The 10-year ASCVD risk score (Mahnaz FALL, et al., 2019) is: 11% Values used to calculate the score: Age: 61 years Sex: Male Is Non- : No Diabetic: No Tobacco smoker: No Systolic Blood Pressure: 124 mmHg Is BP treated: No HDL Cholesterol: 46 mg/dL Total Cholesterol: 220 mg/dL CHIEF COMPLAINT Patient presents with: Physical HISTORY OF PRESENT ILLNESS Hollie Stover is a 61 year old male who presents here today for a complete physical exam. I last saw this patient on 07/08/2021. Patient reports feeling generally well today. Carpal Tunnel Patient complains of pain in 3 fingers on both hands This has been going on for about a year now Reports that the pain keeps him up at night and does not improve Mood/Drinking He recently stopped drinking alcohol 2 months ago His daughter was beginning to heavily drink too, so he wanted to set a good example and quit with her Now he feels the need to replace the void Reports feeling down and depressed. 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 Past, family and social history reviewed. PAST MEDICAL HISTORY PAST MEDICAL HISTORY Diagnosis Date Arthritis History of transfusion Nonspecific elevation of levels of transaminase or lactic acid dehydrogenase (LDH) Other psoriasis and similar disorders Psoriasis Psoriatic arthritis (HCC) Sleep apnea PAST SURGICAL HISTORY Procedure Laterality Date COLONOSCOPY FLX DX W/COLLJ SPEC WHEN PFRMD 04/18/13 Colonoscopy NONE ALLERGIES Patient has no known allergies. FAMILY HISTORY Problem Relation Age of Onset Diabetes Father Ischemic Heart Disease Father other (unknown) Mother Social History Tobacco Use Smoking status: Former Types: Cigarettes Quit date: 09/14/2009 Years since quittin.7 Smokeless tobacco: Never Vaping Use Vaping Use: Never used Substance Use Topics Alcohol use: Yes Comment: Socially Drug use: No REVIEW OF SYSTEMS General: Feels well, no weight changes, fever, chills. Irritable. HEENT: No sinus congestion, earache, sore throat. Cardiac: No chest pain, palpitations Resp: No cough, wheeze, shortness of breath GI: No reflux symptoms, food intolerance, bowel changes. : No urinary frequency, dysuria. MS: paresthesias both hands. Psych: +depression/irritable, PHYSICAL EXAMINATION BP 124/73 Pulse 84 Ht 177.8 cm (5' 10) Wt 94.3 kg (208 lb) SpO2 94% BMI 29.84 kg/m Repeat BP: 123/56 General: Alert, well developed, well nourished, no distress, pleasant and cooperative. HEENT: No adenopathy or thyromegaly. Heart: Regular rate and rhythm. Normal S1 and S2. No murmurs, rubs, or gallops. Lungs: Clear to auscultation bilaterally. No respiratory distress. No wheezes, rales, or rhonchi. Abdomen: Soft, non-tender, no distention. Extremities: Feet/ankles without edema, posterior tibial pulses full and symmetrical. Data Reviewed Latest Reference Range & Units 03/09/21 16:00 Sodium 136 - 144 mmol/L 140 Potassium 3.7 - 5.1 mmol/L 3.8 Chloride 97 - 105 mmol/L 104 CO2 22 - 30 mmol/L 22 BUN 9 - 24 mg/dL 13 Creatinine 0.73 - 1.22 mg/dL 0.71 (L) Glucose 74 - 99 mg/dL 97 Protein, Total 6.3 - 8.0 g/dL 7.2 Calcium 8.5 - 10.2 mg/dL 9.5 Albumin 3.9 - 4.9 g/dL 4.3 Bilirubin, Total 0.2 - 1.3 mg/dL 0.6 Alkaline Phosphatase 38 - 113 U/L 74 ALT 10 - 54 U/L 42 AST 14 - 40 U/L 38 Anion Gap 9 - 18 mmol/L 14 eGFR- >60 eGFR-All Other Races . >60 Cholesterol, Total <200 mg/dL 220 (H) Triglyceride <150 mg/dL 130 Fasting Time hrs Unknown HDL Cholesterol >39 mg/dL 46 LDL Cholesterol <100 mg/dL 148 (H) VLDL Cholesterol <30 mg/dL 26 TC:HDL Ratio <5.10 4.78 LDL:HDL Ratio <2.54 3.22 (H) Non HDL Cholesterol <130 mg/dL 174 (H) PSA Screening <2.60 ng/mL 1.35 WBC 3.70 - 11.00 k/uL 4.84 RBC 4.20 - 6.00 m/uL 4.77 Hemoglobin 13.0 - 17.0 g/dL 14.3 Hematocrit 39.0 - 51.0 % 44.3 Platelet Count 150 - 400 k/uL 234 MCV 80.0 - 100.0 fL 92.9 MCH 26.0 - 34.0 pG 30.0 MCHC 30.5 - 36.0 g/dL 32.3 MPV 9.0 - 12.7 fL 12.0 RDW-CV 11.5 - 15.0 % 12.7 Neut% % 59.7 Abs Neut (ANC) 1.45 - 7.50 k/uL 2.88 Lymph% % 25.2 Abs Lymph 1.00 - 4.00 k/uL 1.22 Cortland% % 9.5 Abs [place] <0.87 k/uL 0.46 Eosin% % 4.8 Abs Eosin <0.46 k/uL 0.23 Baso% % 0.8 Abs Baso <0.11 k/uL 0.04 Nucleated Reds 0 /100 WBC 0.0 Absolute nRBC <0.01 k/uL <0.01 Diff Type Auto Diff (L): Data is abnormally low (H): Data is abnormally high Assessment/Plan (Z00.00) Well adult exam (primary encounter diagnosis) Comment: here for physical Plan: as below (Z23) Encounter for immunization Comment: due for immunization Plan: PNEUMOCOCCAL VACCINE (PREVNAR 20), [employer] COVID-19 BIVALENT BOOSTER VACCINE, AGE 12+ YR (R20.2) Paresthesia of hand, bilateral Comment: patient thinks he may have carpal tunnel Plan: EMG(NEURO/NI) (F43.23) Adjustment disorder with mixed anxiety and depressed mood Comment: increased depression since alcohol cessation Plan: FLUoxetine (PROZAC) 20 mg capsule (E78.00) Pure hypercholesterolemia Comment: history of elevated cholesterol, due for labs Plan: LIPID PANEL BASIC (G47.33) PAT (obstructive sleep apnea) Comment: may be contributing to fatigue Plan: PAP TITRATION PSG (CPAP, BIPAP, ASV) Requested Prescriptions Signed Prescriptions Disp Refills FLUoxetine (PROZAC) 20 mg capsule 30 capsule 2 Sig: Take 1 capsule by mouth once daily. RTO: 4 weeks Scribe Attestation: By signing my name below, Rita Dan, attest that this documentation has been prepared under the direction and in the presence of Florentino Rogers M.D. Electronically Signed: Katherine No. June 07, 2022 1:08 PM Provider Attestation: Coni Dan MD, personally performed the services described in this documentation. All medical record entries made by the scribe were at my direction and in my presence. I have reviewed the chart and discharge instructions (if applicable) and agree that the record reflects my personal performance and is accurate and complete. Electronically Signed: Coni Rogers MD June 07, 2022 4:56 PM documented in this encounter [facility] 09-23-2021 Nurse Note Patient awake, sitting up eating snack and juice, oxygen removed now. Saturations 98% on 2L NC, 95% on RA. Patient received in PACU, eyes closed, lying on left side, skin warm and dry, opens eyes and responds to verbal stimuli, abdomen slightly firm, patient denies cramping or discomfort at this time. IV was removed in procedure room, Deondre Gagnon RN reports Dr Aguero is aware. Initial pulse ox reads 91%, patient snoring, oxygen reapplied per NC at 2L. Patient encouraged to pass air as able. documented in this encounter [facility] 09-23-2021 History and physical note UPDATED PROCEDURAL SEDATION HISTORY AND PHYSICAL EXAMINATION SERVICE DATE: 09/23/2021 SERVICE TIME: 8:19 PHYSICAL EXAM MUST BE COMPLETED ON ADMISSION PROCEDURE: colonosocpy, possible biopsies Procedure Indications: history of colon polyps The History and Physical (completed in the past 30 days) has been reviewed and the patient has been examined. The contents accurately reflect the patient's condition with the following additions or revisions since the H&P was completed. ASA Class: ASA Class:: Patient with mild systemic disease Examination indicates no changes. AIRWAY: Airway Visualization of Uvula: Yes Mouth opening greater than 2 fingerbreadths: Yes Neck Full Range of Motion: Yes LUNGS: Lungs clear to auscultation CARDIAC: Regular rhythm,Regular rate Provisional Diagnosis/Treatment Plan: colonoscopy, possible biopsies SEDATION GOAL: Moderate This H&P can be found in the Electronic Medical Record. SIGNATURE: Shalonda Aguero MD PATIENT NAME: Hollie Stover DATE: September 23, 2021 TIME: 8:21 AM HISTORY AND PHYSICAL Hollie Stover 1960 REFERRING PHYSICIAN: Coni Rogers MD CHIEF COMPLAINT: No chief complaint on file. HPI: The patient is a 60 year old male referred for endoscopy. Hollie notes no colon complaints. Patient denies any change in bowel habits, weight changes, blood in stools, black tarry stools or abdominal pain. Denies family history of colon issues. The patient notes no upper GI complaints. Hollie has undergone prior endoscopy. Most recent colonoscopy 04/18/[address] Mtz with removal of a 5 mm distal transverse colon polyp. Final pathology showed prominent mucosal lymphoid aggregate, no adenomatous epithelium identified. Recommendation was to repeat colonoscopy in 10 years. Patient's past medical history is significant for psoriasis and psoriatic arthritis. He follows with Dr. Rogers in primary care. He was referred for colonoscopy at his last PCP visit. Patient denies chest pain, shortness of breath or recent hospitalizations. Denies problems with sedation in the past. PAST MEDICAL HISTORY PAST MEDICAL HISTORY Diagnosis Date Arthritis Nonspecific elevation of levels of transaminase or lactic acid dehydrogenase (LDH) Other psoriasis and similar disorders Psoriasis Psoriatic arthritis (HCC) PAST SURGICAL HISTORY PAST SURGICAL HISTORY Procedure Laterality Date COLONOSCOPY FLX DX W/COLLJ SPEC WHEN PFRMD 04/18/13 Colonoscopy NONE CURRENT MEDICATIONS Current Outpatient Medications Medication Sig CPAP Initiate Auto PAP @ 5-20 cm of water with humidification. Mask (per patient preference) optional chin strap (if indicated) , filters, tubing, humidifier and lifetime supplies. secukinumab (COSENTYX) 150 mg/mL injection Inject 150 mg subcutaneously once every month. No current facility-administered medications for this visit. ALLERGIES: Patient has no known allergies. PERSONAL HISTORY: SOCIAL HISTORY Social History Tobacco Use Smoking status: Former Smoker Quit date: 09/14/2009 Years since quittin.8 Smokeless tobacco: Never Used Substance Use Topics Alcohol use: Yes Comment: Socially Drug use: No FAMILY HISTORY: FAMILY HISTORY FAMILY HISTORY Problem Relation Age of Onset Diabetes Father Ischemic Heart Disease Father other (unknown [Other]) Mother REVIEW OF SYMPTOMS: The review of systems data was entered by the nurse and reviewed by ma Nursing Notes: Velma Mejía LPN 07/18/2021 3:25 PM Signed REVIEW OF SYSTEMS: General: The patient denies fatigue, denies weight loss, denies weight gain, denies feeling hot, and denies feelings of cold. Eyes: The patient denies glaucoma, notes eye injury/surgery, does not wear glasses or contacts. Ear/Nose/Throat: The patient denies allergies, denies hayfever, denies ear infections, and denies bloody noses. Cardiovascular: The patient denies chest pain, denies heart disease, denies high blood pressure,denies cardiac stent, denies prior heart attack, denies irregular heart beat, denies high cholesterol, denies poor circulation, denies heart failure, other cardiac issues, denies claudication, denies cold feet, denies peripheral arterial stent. Respiratory: The patient denies tuberculosis, denies pneumonia, denies frequent cough, denies pulmonary embolism, denies shortness of breath, and denies coughing up blood. Gastrointestinal: The patient denies difficulty swallowing, denies acid reflux, denies ulcers, denies vomiting, denies jaundice/hepatitis, denies gallbladder problems, denies black or tarry stools, denies hemorrhoids, denies bleeding from rectum, denies diverticulitis, denies constipation, denies diarrhea, denies loss of stool control, and denies hernias. Kidney/Bladder: The patient denies kidney stones, denies urine infections, and denies bloody urine. Skin: The patient denies a history of skin cancer, denies bleeding/changing moles, and notes a history of skin rash. Neurologic: The patient denies a history of epilepsy/convulsions, denies headaches, denies head/spinal injuries, and denies stroke/TIA. Psychiatric: The patient denies psychiatric medications, notes depression, and denies voices, denies substance abuse. Endocrine: The patient denies thyroid disorders, denies diabetes, and denies hormonal problems. Hematologic: The patient denies a history of bruising, denies bleeding, and denies anemia, denies blood clots. Infections: The patient denies a history of measles and mumps, denies rheumatic fever, and denies sexually transmitted diseases. Musculoskeletal: The patient notes back pain/injury, notes back problems, denies sciatica, denies knee/foot trouble, denies arthritis, or denies gout. When was patient's last Mammogram screening? N/A Last Colonoscopy: 2013 Velma Mejía LPN I have confirmed and edited as necessary, the PFSH and ROS obtained by others. Fatuma Heredia PA-C PHYSICAL EXAMINATION: General: The patient is 60 year old male, well nourished, well hydrated in no acute distress. The patient is oriented to time, place, and person. VITALS: Blood pressure 118/72, pulse 80, temperature 36.8 C (98.2 F), height 177.8 cm (5' 10), weight 94.3 kg (208 lb), SpO2 96 %. Body mass index is 29.84 kg/m . HEENT: Normal cephalic, ataumatic, pupils are equally round, sclera are anicteric, mucous membranes are moist, oropharynx is clear. Neck has no masses, asymmetry or lymphadenopathy. Respiratory: Clear to auscultation and percussion. Normal respiratory excursion and pattern. Cardiac: Examination is regular rate and rhythm. Normal S1/S2 Abdominal exam: Soft, nontender, with no palpable masses. No hepatosplenomegaly. No palpable hernias. Extremities: no clubbing, cyanosis or edema. No adenopathy. LABORATORY VALUES: As Noted RADIOLOGIC STUDIES: As Noted Assessment IMPRESSION: encounter for screening colonoscopy. History of benign colon polyp PLAN: Reviewed op notes and pathology report from last colonoscopy and reviewed current colon cancer surveillance guidelines with patient, which show him to be due in 2023. Patient states he wants to proceed with colonoscopy at this time and does not want to wait until 2023. Recommended that he contact his insurance prior to procedure. Patient verbalized understanding I have reviewed my findings with the surgeon. Will plan for lower endoscopy. We discussed the risks and benefits of the planned endoscopy. I have informed the patient that complications can occur including failure to complete the endoscopy and perforation. The patient had the opportunity to ask questions concerning the planned endoscopy. My staff has also explained the procedure to the patient in understandable terms and has given the patient printed material concerning the procedure. The patient freely consents to surgery. The patient was offered a surgery/procedure at a [facility] facility. I have counseled the patient regarding the risk of exposure to and/or potential harm posed by the COVID-19 virus with having a surgery/procedure at this time versus the risk of delaying the surgery/procedure. It is not possible to know either the risk of delaying the surgery or procedure or chance of getting an infection with perfect accuracy, but a joint decision was made between the patient and myself to proceed at this time with endoscopy. I plan to use Golytely bowel preparation I have explained to the patient the difference between IV conscious sedation and MAC anesthesia - and I have offered either, according to the patient's wishes. I have explained that with IV conscious sedation there is no anesthesia provider available and therefore there is a limitation of the amount of IV medications that can be given and that the patient may wake up in the middle of the procedure and/or experience pain/discomfort during the procedure. Further discussion was done and the patient was given the opportunity to ask questions and all questions were answered. The patient chooses IV conscious sedation Diagnoses: (Z12.11) Encounter for screening for malignant neoplasm of colon (primary encounter diagnosis) (Z86.010) History of colonic polyps Consultation requested by Dr. Rogers for an opinion regarding screening colonoscopy. My final recommendations will be communicated back to the requesting physician by way of shared Medical record or letter to requesting physician via US mail. Fatuma Heredia PA-C documented in this encounter [facility] 07-18-2021 Nurse Note REVIEW OF SYSTEMS: General: The patient denies fatigue, denies weight loss, denies weight gain, denies feeling hot, and denies feelings of cold. Eyes: The patient denies glaucoma, notes eye injury/surgery, does not wear glasses or contacts. Ear/Nose/Throat: The patient denies allergies, denies hayfever, denies ear infections, and denies bloody noses. Cardiovascular: The patient denies chest pain, denies heart disease, denies high blood pressure,denies cardiac stent, denies prior heart attack, denies irregular heart beat, denies high cholesterol, denies poor circulation, denies heart failure, other cardiac issues, denies claudication, denies cold feet, denies peripheral arterial stent. Respiratory: The patient denies tuberculosis, denies pneumonia, denies frequent cough, denies pulmonary embolism, denies shortness of breath, and denies coughing up blood. Gastrointestinal: The patient denies difficulty swallowing, denies acid reflux, denies ulcers, denies vomiting, denies jaundice/hepatitis, denies gallbladder problems, denies black or tarry stools, denies hemorrhoids, denies bleeding from rectum, denies diverticulitis, denies constipation, denies diarrhea, denies loss of stool control, and denies hernias. Kidney/Bladder: The patient denies kidney stones, denies urine infections, and denies bloody urine. Skin: The patient denies a history of skin cancer, denies bleeding/changing moles, and notes a history of skin rash. Neurologic: The patient denies a history of epilepsy/convulsions, denies headaches, denies head/spinal injuries, and denies stroke/TIA. Psychiatric: The patient denies psychiatric medications, notes depression, and denies voices, denies substance abuse. Endocrine: The patient denies thyroid disorders, denies diabetes, and denies hormonal problems. Hematologic: The patient denies a history of bruising, denies bleeding, and denies anemia, denies blood clots. Infections: The patient denies a history of measles and mumps, denies rheumatic fever, and denies sexually transmitted diseases. Musculoskeletal: The patient notes back pain/injury, notes back problems, denies sciatica, denies knee/foot trouble, denies arthritis, or denies gout. When was patient's last Mammogram screening? N/A Last Colonoscopy: 2013 Velma Mejía LPN documented in this encounter [facility] 07-18-2021 History of Present illness Narrative HISTORY AND PHYSICAL Hollie Pacheco Ck 1960 REFERRING PHYSICIAN: Coni Rogers MD CHIEF COMPLAINT: No chief complaint on file. HPI: The patient is a 60 year old male referred for endoscopy. Hollie notes no colon complaints. Patient denies any change in bowel habits, weight changes, blood in stools, black tarry stools or abdominal pain. Denies family history of colon issues. The patient notes no upper GI complaints. Hollie has undergone prior endoscopy. Most recent colonoscopy 04/18/[address] Mtz with removal of a 5 mm distal transverse colon polyp. Final pathology showed prominent mucosal lymphoid aggregate, no adenomatous epithelium identified. Recommendation was to repeat colonoscopy in 10 years. Patient's past medical history is significant for psoriasis and psoriatic arthritis. He follows with Dr. Rogers in primary care. He was referred for colonoscopy at his last PCP visit. Patient denies chest pain, shortness of breath or recent hospitalizations. Denies problems with sedation in the past. PAST MEDICAL HISTORY Diagnosis Date Arthritis Nonspecific elevation of levels of transaminase or lactic acid dehydrogenase (LDH) Other psoriasis and similar disorders Psoriasis Psoriatic arthritis (HCC) PAST SURGICAL HISTORY Procedure Laterality Date COLONOSCOPY FLX DX W/COLLJ SPEC WHEN PFRMD 04/18/13 Colonoscopy NONE Current Outpatient Medications Medication Sig CPAP Initiate Auto PAP @ 5-20 cm of water with humidification. Mask (per patient preference) optional chin strap (if indicated) , filters, tubing, humidifier and lifetime supplies. secukinumab (COSENTYX) 150 mg/mL injection Inject 150 mg subcutaneously once every month. No current facility-administered medications for this visit. ALLERGIES: Patient has no known allergies. PERSONAL HISTORY: Social History Tobacco Use Smoking status: Former Smoker Quit date: 09/14/2009 Years since quittin.8 Smokeless tobacco: Never Used Substance Use Topics Alcohol use: Yes Comment: Socially Drug use: No FAMILY HISTORY: FAMILY HISTORY Problem Relation Age of Onset Diabetes Father Ischemic Heart Disease Father other (unknown [Other]) Mother REVIEW OF SYMPTOMS: The review of systems data was entered by the nurse and reviewed by ma Nursing Notes: Velma KymGRADY 07/18/2021 3:25 PM Signed REVIEW OF SYSTEMS: General: The patient denies fatigue, denies weight loss, denies weight gain, denies feeling hot, and denies feelings of cold. Eyes: The patient denies glaucoma, notes eye injury/surgery, does not wear glasses or contacts. Ear/Nose/Throat: The patient denies allergies, denies hayfever, denies ear infections, and denies bloody noses. Cardiovascular: The patient denies chest pain, denies heart disease, denies high blood pressure,denies cardiac stent, denies prior heart attack, denies irregular heart beat, denies high cholesterol, denies poor circulation, denies heart failure, other cardiac issues, denies claudication, denies cold feet, denies peripheral arterial stent. Respiratory: The patient denies tuberculosis, denies pneumonia, denies frequent cough, denies pulmonary embolism, denies shortness of breath, and denies coughing up blood. Gastrointestinal: The patient denies difficulty swallowing, denies acid reflux, denies ulcers, denies vomiting, denies jaundice/hepatitis, denies gallbladder problems, denies black or tarry stools, denies hemorrhoids, denies bleeding from rectum, denies diverticulitis, denies constipation, denies diarrhea, denies loss of stool control, and denies hernias. Kidney/Bladder: The patient denies kidney stones, denies urine infections, and denies bloody urine. Skin: The patient denies a history of skin cancer, denies bleeding/changing moles, and notes a history of skin rash. Neurologic: The patient denies a history of epilepsy/convulsions, denies headaches, denies head/spinal injuries, and denies stroke/TIA. Psychiatric: The patient denies psychiatric medications, notes depression, and denies voices, denies substance abuse. Endocrine: The patient denies thyroid disorders, denies diabetes, and denies hormonal problems. Hematologic: The patient denies a history of bruising, denies bleeding, and denies anemia, denies blood clots. Infections: The patient denies a history of measles and mumps, denies rheumatic fever, and denies sexually transmitted diseases. Musculoskeletal: The patient notes back pain/injury, notes back problems, denies sciatica, denies knee/foot trouble, denies arthritis, or denies gout. When was patient's last Mammogram screening? N/A Last Colonoscopy: 2013 Velma Mejía LPN I have confirmed and edited as necessary, the PFSH and ROS obtained by others. Fatuma Heredia PA-C PHYSICAL EXAMINATION: General: The patient is 60 year old male, well nourished, well hydrated in no acute distress. The patient is oriented to time, place, and person. VITALS: Blood pressure 118/72, pulse 80, temperature 36.8 C (98.2 F), height 177.8 cm (5' 10), weight 94.3 kg (208 lb), SpO2 96 %. Body mass index is 29.84 kg/m . HEENT: Normal cephalic, ataumatic, pupils are equally round, sclera are anicteric, mucous membranes are moist, oropharynx is clear. Neck has no masses, asymmetry or lymphadenopathy. Respiratory: Clear to auscultation and percussion. Normal respiratory excursion and pattern. Cardiac: Examination is regular rate and rhythm. Normal S1/S2 Abdominal exam: Soft, nontender, with no palpable masses. No hepatosplenomegaly. No palpable hernias. Extremities: no clubbing, cyanosis or edema. No adenopathy. LABORATORY VALUES: As Noted RADIOLOGIC STUDIES: As Noted Assessment IMPRESSION: encounter for screening colonoscopy. History of benign colon polyp PLAN: Reviewed op notes and pathology report from last colonoscopy and reviewed current colon cancer surveillance guidelines with patient, which show him to be due in 2023. Patient states he wants to proceed with colonoscopy at this time and does not want to wait until 2023. Recommended that he contact his insurance prior to procedure. Patient verbalized understanding I have reviewed my findings with the surgeon. Will plan for lower endoscopy. We discussed the risks and benefits of the planned endoscopy. I have informed the patient that complications can occur including failure to complete the endoscopy and perforation. The patient had the opportunity to ask questions concerning the planned endoscopy. My staff has also explained the procedure to the patient in understandable terms and has given the patient printed material concerning the procedure. The patient freely consents to surgery. The patient was offered a surgery/procedure at a [facility] facility. I have counseled the patient regarding the risk of exposure to and/or potential harm posed by the COVID-19 virus with having a surgery/procedure at this time versus the risk of delaying the surgery/procedure. It is not possible to know either the risk of delaying the surgery or procedure or chance of getting an infection with perfect accuracy, but a joint decision was made between the patient and myself to proceed at this time with endoscopy. I plan to use Golytely bowel preparation I have explained to the patient the difference between IV conscious sedation and MAC anesthesia - and I have offered either, according to the patient's wishes. I have explained that with IV conscious sedation there is no anesthesia provider available and therefore there is a limitation of the amount of IV medications that can be given and that the patient may wake up in the middle of the procedure and/or experience pain/discomfort during the procedure. Further discussion was done and the patient was given the opportunity to ask questions and all questions were answered. The patient chooses IV conscious sedation Diagnoses: (Z12.11) Encounter for screening for malignant neoplasm of colon (primary encounter diagnosis) (Z86.010) History of colonic polyps Consultation requested by Dr. Rogers for an opinion regarding screening colonoscopy. My final recommendations will be communicated back to the requesting physician by way of shared Medical record or letter to requesting physician via US mail. Fatuma Heredia PA-C documented in this encounter [facility] 07-18-2021 Miscellaneous Notes MARIA on for return call Please let patient know that his insurance denied him having an in person sleep study and stated he needed to have a trial of the AutoPap device completed first. I placed an order for the device with the automatic settings, so he will need to find out which DME company he needs to use to obtain his device and we can forward the prescription to them. Sally Sunshine APRN.CNP documented in this encounter [facility] 07-08-2021 History of Present illness Narrative CHIEF COMPLAINT Patient presents with: Follow Up HISTORY OF PRESENT ILLNESS Hollie Stover is a 60 year old male who presents here today for a complete physical exam. I last saw this patient on 03/13/2013. Patient was last seen by Manda Sandoval APRN, CNP on 03/09/21 Patient reports feeling generally well today. Psoriasis Patient is managed on Cosentyx. Patient is currently following a casting technician. PAT Patient recently had a sleep study done. He says that he has not received the results back yet. Patient has not been on CPAP He complains of constant fatigue and his says that he stops breathing at night Health Maintenance Due for Shingrix series Due for depression screening. Due for COVID booster Labs reviewed. Past, family and social history reviewed. PAST MEDICAL HISTORY PAST MEDICAL HISTORY Diagnosis Date Arthritis Nonspecific elevation of levels of transaminase or lactic acid dehydrogenase (LDH) Other psoriasis and similar disorders Psoriasis Psoriatic arthritis (HCC) PAST SURGICAL HISTORY Procedure Laterality Date COLONOSCOPY FLX DX W/COLLJ SPEC WHEN PFRMD 04/18/13 Colonoscopy NONE ALLERGIES Patient has no known allergies. FAMILY HISTORY Problem Relation Age of Onset Diabetes Father Ischemic Heart Disease Father other (unknown [Other]) Mother Social History Tobacco Use Smoking status: Former Smoker Quit date: 09/14/2009 Years since quittin.8 Smokeless tobacco: Never Used Substance Use Topics Alcohol use: Yes Comment: Socially Drug use: No REVIEW OF SYSTEMS General: Feels well, no weight changes, fever, chills. +fatigue HEENT: No sinus congestion, earache, sore throat. Cardiac: No chest pain, palpitations Resp: No cough, wheeze, shortness of breath GI: No reflux symptoms, food intolerance, bowel changes. : No urinary frequency, dysuria. MS: No pain or joint complaints. Skin: +psoriasis PHYSICAL EXAMINATION BP 116/66 Pulse 84 Ht 177.8 cm (5' 10) Wt 92.5 kg (204 lb) BMI 29.27 kg/m General: Alert, well developed, well nourished, no distress, pleasant and cooperative. HEENT: No adenopathy or thyromegaly. Heart: Regular rate and rhythm. Normal S1 and S2. No murmurs, rubs, or gallops. Lungs: Clear to auscultation bilaterally. No respiratory distress. No wheezes, rales, or rhonchi. Abdomen: Soft, non-tender, no distention. Extremities: Feet/ankles without edema, posterior tibial pulses full and symmetrical. Data Reviewed 03/09/21 CBC+DIFF- within normal limits CMP- creatinine (0.71 low) Lipid- Cholesterol, Total <200 mg/dL 220 High Triglyceride <150 mg/dL 130 HDL Cholesterol >39 mg/dL 46 LDL Cholesterol <100 mg/dL 148 High Non HDL Cholesterol <130 mg/dL 174 High Fasting Time hrs Unknown VLDL Cholesterol <30 mg/dL 26 TC:HDL Ratio <5.10 4.78 LDL:HDL Ratio <2.54 3.22 High PSA- within normal limits Assessment/Plan (L40.9) Psoriasis (primary encounter diagnosis) Comment: well controlled Plan: continue to follow derm (G47.33) PAT (obstructive sleep apnea) Comment: patient had a sleep study done but would like to take it a step further. Plan: POLYSOMNOGRAM (PSG) (Z86.010) History of colonic polyps Comment: Due for routine colon cancer screening. Plan: CONSULT TO GASTROENTEROLOGY No medications selected for refill. RTO: 1 year Scribe Attestation: By signing my name below, IThelma, attest that this documentation has been prepared under the direction and in the presence of Florentino Rogers M.D. Electronically Signed: Katherine Ya. July 08, 2021 9:40 AM Provider Attestation: Coni Dan MD, personally performed the services described in this documentation. All medical record entries made by the scribe were at my direction and in my presence. I have reviewed the chart and discharge instructions (if applicable) and agree that the record reflects my personal performance and is accurate and complete. Electronically Signed: Coni Rogers MD. July 08, 2021 4:41 PM documented in this encounter [facility] 06-03-2021 History of Present illness Narrative Sleep Study Check-In Documentation Date: June 03, 2021 Name: Hollie Stover Comments: HST was returned in working order with all sleep questionnaires Chelsey Gould Nomad# [id number] , date shipped out 05/31/21 Tracking mailout [id number] Tracking return [id number] May 25, 2021 An order has been received for Home Sleep Apnea Test (HSAT) from Dr. Shruti Rodrigues APRN.Amy HALL. Sleep Center Staff/[employer] Sawyer Staff Orders. Visit prep complete - Please refer to the sleep study order (under procedures tab) for protocol details and special instructions. The sleep study is scheduled for 06/01/21. Insurance: Payor: CIGNA / Plan: CIGNA OAP / Product Type: Open Access / Payor/Plan Subscr Sex Relation Sub. Ins. ID Effective Group Num 1. CIGNA - CIGNA* JUAN STOVER* 1960 Male Self [id number] 02/26/21 [id number] Elise Baez PSS documented in this encounter [facility] Evaluation note Diagnosis Psoriasis- Primary Other psoriasis PAT (obstructive sleep apnea) Obstructive sleep apnea (adult) (pediatric) History of colonic polyps Personal history of colonic polyps [facility] Encounter for screening for malignant neoplasm of colon- Primary Special screening for malignant neoplasms, colon History of colonic polyps Personal history of colonic polyps [facility] History of colonic polyps Personal history of colonic polyps [facility] Diagnosis Well adult exam- Primary Routine general medical examination at a health care facility Encounter for immunization Need for other specified prophylactic vaccination against single bacterial disease Paresthesia of hand, bilateral Adjustment disorder with mixed anxiety and depressed mood Pure hypercholesterolemia PAT (obstructive sleep apnea) Obstructive sleep apnea (adult) (pediatric) Alcohol use disorder, moderate, in early remission (HCC) [facility] Diagnosis PAT (obstructive sleep apnea)- Primary Obstructive sleep apnea (adult) (pediatric) [facility] Diagnosis Adjustment disorder with mixed anxiety and depressed mood- Primary [facility]* Diagnosis Carpal tunnel syndrome, bilateral upper limbs- Primary Paresthesia of hand, bilateral Radiculopathy, cervical region Brachial neuritis or radiculitis nos Paresthesia of skin Disturbance of skin sensation [facility] Diagnosis Carpal tunnel syndrome, bilateral- Primary Carpal tunnel syndrome [facility] Diagnosis Carpal tunnel syndrome of left wrist- Primary Carpal tunnel syndrome Carpal tunnel syndrome, bilateral Carpal tunnel syndrome Carpal tunnel syndrome of right wrist Carpal tunnel syndrome Cervical radiculopathy at C6 Brachial neuritis or radiculitis nos [facility] Diagnosis Carpal tunnel syndrome of left wrist- Primary Carpal tunnel syndrome Carpal tunnel syndrome of left wrist Carpal tunnel syndrome [facility] Diagnosis Cervical radiculopathy at C6- Primary Brachial neuritis or radiculitis nos Carpal tunnel syndrome, bilateral Carpal tunnel syndrome Carpal tunnel syndrome of left wrist Carpal tunnel syndrome Carpal tunnel syndrome of right wrist Carpal tunnel syndrome [facility] Diagnosis Adjustment disorder with mixed anxiety and depressed mood- Primary Hoarse voice quality Dysphonia PAT (obstructive sleep apnea) Obstructive sleep apnea (adult) (pediatric) Carpal tunnel syndrome, bilateral Carpal tunnel syndrome Pure hypercholesterolemia Carpal tunnel syndrome of left wrist Carpal tunnel syndrome Carpal tunnel syndrome of right wrist Carpal tunnel syndrome [facility] Diagnosis Laryngopharyngeal reflux (LPR)- Primary Other diseases of larynx Hoarse voice quality Dysphonia Carpal tunnel syndrome of left wrist Carpal tunnel syndrome Carpal tunnel syndrome of right wrist Carpal tunnel syndrome documented in this encounter [facility] note* Diagnosis Postoperative pain- Primary Other acute postoperative pain Carpal tunnel syndrome of right wrist Carpal tunnel syndrome documented in this encounter [facility] note* Diagnosis S/P carpal tunnel release- Primary Other postprocedural status Carpal tunnel syndrome of right wrist Carpal tunnel syndrome [facility] Diagnosis Pre-operative examination- Primary Preoperative examination, unspecified Psoriasis Other psoriasis Psoriatic arthropathy (HCC) Psoriatic arthropathy Laceration without foreign body of left forearm, initial encounter- Primary documented in [facility]* Diagnosis Pain Generalized pain Pre-operative examination- Primary Preoperative examination, unspecified Psoriasis Other psoriasis Psoriatic arthropathy (HCC) Psoriatic arthropathy documented in this encounter [facility] for referral (narrative)* Outpatient Procedure (Routine) - Closed Specialty Diagnoses / Procedures Referred By Mikki lucero Referred To Contact [facility] Diagnoses History of colonic polyps Procedures COLONOSCOPY SCREENING COLONOSCOPY FLX DX W/COLLJ SPEC WHEN PFRMD Fatuma Heredia PA-C [address] [place] [address] [facility] [address] [place], [place] [id number] Referral ID Status Reason Start Date Expiration Date V isits Requested Visits Authorized [id number] Closed Auto-Generate d Referral 07/19/2021 07/18/2022 1 1 [facility] for referral (narrative)* Outpatient Procedure (Routine) - Pending Review Specialty Diagnoses / Procedures Referred By Mikki lucero Referred To Contact [facility] Diagnoses Paresthesia of hand, bilateral Procedures EMG(NEURO/NI) NERVE CONDUCTION STUDIES 9-10 STUDIES Coni Rogers MD [address] [place] [address] [facility] [address] [place] [id number] Referral ID Status Reason Start Date Expiration Date Visits Requested Visits Authorized [id number] Pending Review Auto-Generat ed Referral 06/07/2022 06/08/2023 1 1 [facility] for referral (narrative)* Diagnostic Procedure Only (Routine) - Closed Specialty Diagnoses / Procedures Referred By Contac t Referred To Contact [facility] IMAGING Diagnoses Pain Procedures XR HAND GENERAL 3V PA/LAT/OBL BILATERAL RADEX HAND MINIMUM 3 VIEWS Stephania Tinsley DO [address] [place] [address] [place] [address] Referral ID Status Reason Start Date Expiration Date V isits Requested Visits Authorized [id number] Closed Auto-Generate d Referral 08/02/2022 09/01/2023 1 1 [facility] for visit Narrative* Outpatient Procedure (Routine) - Closed Specialty Diagnoses / Procedures Referred By Contac t Referred To Contact [facility] Diagnoses History of colonic polyps Procedures COLONOSCOPY SCREENING COLONOSCOPY FLX DX W/COLLJ SPEC WHEN PFRMD Fatuma Heredia PA-C [address] [place] [address] [facility] [address] [place] [address] Referral ID Status Reason Start Date Expiration Date V isits Requested Visits Authorized [id number] Closed Auto-Generate d Referral 07/19/2021 07/18/2022 1 1 [facility] for visit Narrative* Diagnostic Procedure Only (Routine) - Closed Specialty Diagnoses / Procedures Referred By Contac t Referred To Contact XR IMAGING Diagnoses Pain Procedures XR HAND GENERAL 3V PA/LAT/OBL BILATERAL RADEX HAND MINIMUM 3 VIEWS Stephania Tinsley DO [address] [place] [address] [place] [address] Referral ID Status Reason Start Date Expiration Date V isits Requested Visits Authorized [id number] Closed Auto-Generate d Referral 08/02/2022 09/01/2023 1 1 [facility] Advance Directives No Advanced Directives Records FoundDocuments on File Type Date Recorded Patient Batch Operator Expl anation Advance Directive(s) 02/09/2019 3:32 PM Advance Directive(s) 02/01/2017 1:08 AM Documents on File Type Date Recorded Patient Batch Operator Expl anation Advance Directive(s) 02/09/2019 3:32 PM Advance Directive(s) 02/01/2017 1:08 AM Documents on File Type Date Recorded Patient Batch Operator Expl anation Advance Directive(s) 07/20/2021 12:50 PM Advance Directive(s) 02/09/2019 3:32 PM Advance Directive(s) 02/01/2017 1:08 AM Documents on File Type Date Recorded Patient Batch Operator Expl anation Advance Directive(s) 09/23/2021 7:20 AM Advance Directive(s) 07/20/2021 12:50 PM Advance Directive(s) 02/09/2019 3:32 PM Advance Directive(s) 02/01/2017 1:08 AM Reason for Referral Specialty Diagnoses / Procedures Referred By Contac t Referred To Contact Gastroenterology Diagnoses History of colonic polyps Procedures CONSULT TO GASTROENTEROLOGY OFFICE/OUTPATIENT [facility] 60-74 MINUTES Coni Rogers MD [address] [place] [address] [place] [address] Referral ID Status Reason Start Date Expiration Date Visits Requested Visits Authorized [id number] Authorized PCP Requested Referral 07/08/2021 07/08/2022 1 1 Specialty Diagnoses / Procedures Referred By Contac t Referred To Contact Orthopedics Diagnoses Carpal tunnel syndrome, bilateral Procedures CONSULT TO ORTHOPAEDICS OFFICE/OUTPATIENT [facility] 60-74 MINUTES Sally Sunshine APRN.TICKET MARKER [address] [place] [address] Referral ID Status Reason Start Date Expiration Date Visits Requested Visits Authorized [id number] Authorized PCP Requested Referral 07/31/2022 07/31/2023 1 1 Specialty Diagnoses / Procedures Referred By Contac t Referred To Contact [facility] Diagnoses Cervical radiculopathy at C6 Procedures [facility] TO [facility] OFFICE/OUTPATIENT [facility] 60-74 MINUTES Stephania Tinsley DO [address] [facility] [address] [place] [id number] Referral ID Status Reason Start Date Expiration Date Visits Requested Visits Authorized [id number] Authorized PCP Requested Referral 09/06/2022 09/06/2023 1 1 Specialty Diagnoses / Procedures Referred By Mikki t Referred To Contact Ent - Otolaryngology Diagnoses Hoarse voice quality Procedures CONSULT TO ENT OFFICE/OUTPATIENT [facility] 60-74 MINUTES Coni Rogers MD [address] [facility] [place] [address] Referral ID Status Reason Start Date Expiration Date Visits Requested Visits Authorized [id number] Authorized PCP Requested Referral 10/31/2022 10/31/2023 1 1 Medications Administered Section Inactive Administered Medications - up to 3 most recent administrations Medication Order MAR Action Action Date Dose Rate Site diphenhydrAMINE 12.5-50 mg injection (BENADRYL) 12.5-50 mg, INTRAVENOUS, DIRECTED, Starting on Sun09/23/21 at 0900, Until Sun09/23/21 at 1259, DOSING DIRECTED BY PHYSICIAN FOR PROCEDURAL SEDATION ONLY, Intraprocedure Given 09/23/2021 8:30 AM EDT 50 mg fentaNYL 50 mcg/mL 25-100 mcg injection (SUBLIMAZE) 25-100 mcg, INTRAVENOUS, DIRECTED, Starting on Sun09/23/21 at 0900, Until Sun09/23/21 at 1259, DOSING DIRECTED BY PHYSICIAN FOR PROCEDURAL SEDATION ONLY, Intraprocedure Given 09/23/2021 8:36 AM EDT 50 mcg Given 09/23/2021 8:28 AM EDT 50 mcg lactated ringers iv infusion 75 mL/hr, INTRAVENOUS, CONTINUOUS, Starting on Sun09/23/21 at 0800, Until Sun09/23/21 at 0904, Preprocedure New Bag/Syringe/Bottle 09/23/2021 7:40 AM EDT 75 mL/hr 75 mL/hr Hand, Right midazolam (PF) 1-5 mg injection (VERSED) 1-5 mg, INTRAVENOUS, DIRECTED, Starting on Sun09/23/21 at 0900, Until Sun09/23/21 at 1259, DOSING DIRECTED BY PHYSICIAN FOR PROCEDURAL SEDATION ONLY, Intraprocedure Given 09/23/2021 8:32 AM EDT 2 mg Given 09/23/2021 8:28 AM EDT 3 mg Inactive Administered Medications - up to 3 most recent administrations Medication Order MAR Action Action Date Dose Rate Site acetaminophen 1,000 mg tab(s) (TYLENOL) 1,000 mg, ORAL, PRE-OP ONCE, 1 dose, On Sun01/16/23 at 1100, Preprocedure Given 01/16/2023 11:03 AM EST 1,000 mg fentaNYL 50 mcg/mL 50 mcg injection (SUBLIMAZE) 50 mcg, INTRAVENOUS, EVERY 10 MINUTES NEEDED, 4 doses, Starting on Sun01/16/23 at 1151, Until Sun01/17/23 at 0304, Moderate Pain (4-6) - Parenteral, Severe Pain (>/=7) - Parenteral, breakthrough pain, FIRST LINE THERAPY for mild, moderate, or severe pain, USE FOR MILD PAIN ONLY IF PATIENT IS UNABLE TO TOLERATE ORAL THERAPY, Recovery or Phase I (only) lactated ringers iv infusion 5-30 mL/hr, INTRAVENOUS, CONTINUOUS, Starting on Sun01/16/23 at 1100, Until Sun01/16/23 at 1149, Preprocedure Restarted 01/16/2023 11:16 AM EST New Bag/Syringe/Bottle 01/16/2023 11:00 AM EST 30 mL/hr 30 mL/hr lactated ringers iv infusion 50 mL/hr, INTRAVENOUS, CONTINUOUS, Starting on Sun01/16/23 at 1200, Until Sun01/17/23 at 0304, Recovery or Phase I (only) meperidine (PF) 12.5 mg injection (DEMEROL) 12.5 mg, INTRAVENOUS, EVERY 10 MINUTES NEEDED, 2 doses, Starting on Sun01/16/23 at 1151, Until Sun01/17/23 at 0304, for shivering, May Repeat 12.5 mg in 10 minutes X1, Recovery or Phase I (only) oxyCODONE IR 5 mg tab(s) (ROXICODONE) 5 mg, ORAL, NEEDED, 1 dose, Starting on Sun01/16/23 at 1151, Until Sun01/17/23 at 0304, Mild Pain (1-3) - Enteral, Recovery or Phase I (only) prochlorperazine 10 mg injection (COMPAZINE) 10 mg, INTRAVENOUS, EVERY 6 HOURS NEEDED, Starting on Sun01/16/23 at 1151, Until Sun01/17/23 at 0304, Nausea/Vomiting - First Line - Parenteral, EVERY 6 HOURS NEEDED Protect From Light, Recovery or Phase I (only) promethazine 12.5 mg tab(s) (PHENERGAN) 12.5 mg, ORAL, PRE-OP ONCE, 1 dose, On Sun01/16/23 at 1100, Preprocedure Given 01/16/2023 11:03 AM EST 12.5 mg Summary Purpose Family History No Family History Records FoundNo Family History Records FoundNo Family History Records Found Additional Source Comments Source Comments (unrecognize d section and content) In the event this informatio n is protected by the Federal Confidentiality of Alcohol and Drug Abuse Patient Records regulations: The Federal rules restrict any use of the information to criminally investigate or prosecute any alcohol or drug abuse patient.[facility] Hospital[facility] the event this information is protected by the Federal Confidentiality of Alcohol and Drug Abuse Patient Records regulations: The Federal rules restrict any use of the information to criminally investigate or prosecute any alcohol or drug abuse patient.[facility] HospitalIn the event this information is protected by the Federal Confidentiality of Alcohol and Drug Abuse Patient Records regulations: The Federal rules restrict any use of the information to criminally investigate or prosecute any alcohol or drug abuse patient.[facility] HospitalIn the event this information is protected by the Federal Confidentiality of Alcohol and Drug Abuse Patient Records regulations: The Federal rules restrict any use of the information to criminally investigate or prosecute any alcohol or drug abuse patient.[facility] HospitalIn the event this information is protected by the Federal Confidentiality of Alcohol and Drug Abuse Patient Records regulations: The Federal rules restrict any use of the information to criminally investigate or prosecute any alcohol or drug abuse patient.[facility] HospitalIn the event this information is protected by the Federal Confidentiality of Alcohol and Drug Abuse Patient Records regulations: The Federal rules restrict any use of the information to criminally investigate or prosecute any alcohol or drug abuse patient.[facility] HospitalIn the event this information is protected by the Federal Confidentiality of Alcohol and Drug Abuse Patient Records regulations: The Federal rules restrict any use of the information to criminally investigate or prosecute any alcohol or drug abuse patient.[facility] HospitalIn the event this information is protected by the Federal Confidentiality of Alcohol and Drug Abuse Patient Records regulations: The Federal rules restrict any use of the information to criminally investigate or prosecute any alcohol or drug abuse patient.[facility] HospitalIn the event this information is protected by the Federal Confidentiality of Alcohol and Drug Abuse Patient Records regulations: The Federal rules restrict any use of the information to criminally investigate or prosecute any alcohol or drug abuse patient.[facility] HospitalIn the event this information is protected by the Federal Confidentiality of Alcohol and Drug Abuse Patient Records regulations: The Federal rules restrict any use of the information to criminally investigate or prosecute any alcohol or drug abuse patient.[facility] HospitalIn the event this information is protected by the Federal Confidentiality of Alcohol and Drug Abuse Patient Records regulations: The Federal rules restrict any use of the information to criminally investigate or prosecute any alcohol or drug abuse patient.[facility] HospitalIn the event this information is protected by the Federal Confidentiality of Alcohol and Drug Abuse Patient Records regulations: The Federal rules restrict any use of the information to criminally investigate or prosecute any alcohol or drug abuse patient.[facility] HospitalIn the event this information is protected by the Federal Confidentiality of Alcohol and Drug Abuse Patient Records regulations: The Federal rules restrict any use of the information to criminally investigate or prosecute any alcohol or drug abuse patient.[facility] HospitalIn the event this information is protected by the Federal Confidentiality of Alcohol and Drug Abuse Patient Records regulations: The Federal rules restrict any use of the information to criminally investigate or prosecute any alcohol or drug abuse patient.[facility] HospitalIn the event this information is protected by the Federal Confidentiality of Alcohol and Drug Abuse Patient Records regulations: The Federal rules restrict any use of the information to criminally investigate or prosecute any alcohol or drug abuse patient.[facility] HospitalIn the event this information is protected by the Federal Confidentiality of Alcohol and Drug Abuse Patient Records regulations: The Federal rules restrict any use of the information to criminally investigate or prosecute any alcohol or drug abuse patient.[facility] HospitalIn the event this information is protected by the Federal Confidentiality of Alcohol and Drug Abuse Patient Records regulations: The Federal rules restrict any use of the information to criminally investigate or prosecute any alcohol or drug abuse patient.[facility] HospitalIn the event this information is protected by the Federal Confidentiality of Alcohol and Drug Abuse Patient Records regulations: The Federal rules restrict any use of the information to criminally investigate or prosecute any alcohol or drug abuse patient.[facility] HospitalIn the event this information is protected by the Federal Confidentiality of Alcohol and Drug Abuse Patient Records regulations: The Federal rules restrict any use of the information to criminally investigate or prosecute any alcohol or drug abuse patient.[facility] HospitalIn the event this information is protected by the Federal Confidentiality of Alcohol and Drug Abuse Patient Records regulations: The Federal rules restrict any use of the information to criminally investigate or prosecute any alcohol or drug abuse patient.[facility] HospitalIn the event this information is protected by the Federal Confidentiality of Alcohol and Drug Abuse Patient Records regulations: The Federal rules restrict any use of the information to criminally investigate or prosecute any alcohol or drug abuse patient.[facility] HospitalIn the event this information is protected by the Federal Confidentiality of Alcohol and Drug Abuse Patient Records regulations: The Federal rules restrict any use of the information to criminally investigate or prosecute any alcohol or drug abuse patient.[facility] HospitalIn the event this information is protected by the Federal Confidentiality of Alcohol and Drug Abuse Patient Records regulations: The Federal rules restrict any use of the information to criminally investigate or prosecute any alcohol or drug abuse patient.[facility] HospitalIn the event this information is protected by the Federal Confidentiality of Alcohol and Drug Abuse Patient Records regulations: The Federal rules restrict any use of the information to criminally investigate or prosecute any alcohol or drug abuse patient.[facility] HospitalIn the event this information is protected by the Federal Confidentiality of Alcohol and Drug Abuse Patient Records regulations: The Federal rules restrict any use of the information to criminally investigate or prosecute any alcohol or drug abuse patient.[facility] Reason for Visit (unrecogniz ed section and content) Reason Comments HSAT Check In (Adult) Reason Comments Follow Up Reason Comments Results Reason Comments Consult colonoscopy, history of polyps Specialty Diagnoses / Procedures Referred By Contact Referred To Contact Gastroenterology / INITIAL DEPT Diagnoses History of colonic polyps Procedures CONSULT TO GASTROENTEROLOGY OFFICE/OUTPATIENT NEW HIGH MDM 60-74 MINUTES OFFICE/OUTPATIENT NEW MODERATE MDM 45-59 MINUTES Coni Rogers MD [address] [place] [address] [place] [address] Initial Department Referral ID Status Reason Start Date Expiration Date V isits Requested Visits Authorized [id number] Closed PCP Requested Referral 07/08/2021 02/25/2022 1 1 Reason Comments Physical Reason Comments Orders Reason Comments Follow Up medications Reason Onset Date Comments EMG 07/28/2022 Specialty Diagnoses / Procedures Referred By Contac t Referred To Contact [facility] Diagnoses Paresthesia of hand, bilateral Procedures EMG(NEURO/NI) NERVE CONDUCTION STUDIES 9-10 STUDIES Coni Rogers MD [address] [facility] [place] [address] [address] Referral ID Status Reason Start Date Expiration Date V isits Requested Visits Authorized [id number] Closed Auto-Generate d Referral 06/07/2022 06/08/2023 1 1 Reason Comments Results Reason Comments New Pain Specialty Diagnoses / Procedures Referred By Contac t Referred To Contact Orthopedics Diagnoses Carpal tunnel syndrome, bilateral Procedures CONSULT TO ORTHOPAEDICS OFFICE/OUTPATIENT [facility] 60-74 MINUTES Sally Sunshine APRN.TICKET [employer]ER [address] [place] [address] Referral ID Status Reason Start Date Expiration Date V isits Requested Visits Authorized [id number] Closed PCP Requested Referral 07/31/2022 07/31/2023 1 1 Reason Comments Received Outside Medical Records [facility] Orders for Cpap supplies 09/20/2022 Reason Onset Date Comments Refill Request 10/10/2022 Reason Comments New Patient Neck Pain Pain (Shoulder Pain) both Specialty Diagnoses / Procedures Referred By Contac t Referred To Contact [facility] Diagnoses Cervical radiculopathy at C6 Procedures [facility] OFF[facility]/OUTPATIENT [facility] 60-74 MINUTES Stephania Tinsley DO [address] [facility] [address] [place] [address] Referral ID Status Reason Start Date Expiration Date V isits Requested Visits Authorized [id number] Closed PCP Requested Referral 09/06/2022 09/06/2023 1 1 Reason Comments F/U 3 Month Reason Comments Patient Question Reason Comments Consult Intermittent Hoarse voice quality, sx for the last 2 months Specialty Diagnoses / Procedures Referred By Mikki lucero Referred To Contact Ent - Otolaryngology Diagnoses Hoarse voice quality Procedures CONSULT TO ENT OFFICE/OUTPATIENT [facility] 60-74 MINUTES Coni Rogers MD [address] [place] [address] [place] [address] Referral ID Status Reason Start Date Expiration Date V isits Requested Visits Authorized [id number] Closed PCP Requested Referral 10/31/2022 10/31/2023 1 1 Reason Comments Patient Question Letter Specialty Diagnoses / Procedures Referred By Mikki lucero Referred To Contact Diagnoses Carpal tunnel syndrome of left wrist Procedures NEUROPLASTY &/TRANSPOS MEDIAN NRV CARPAL TUNNE DECOMPRESSION NERVE MEDIAN CARPAL TUNNEL [facility] [address] [place] [address] Referral ID Status Reason Start Date Expiration Date Visits Re quested Visits Authorized [id number] 1 1 Reason Comments Established Patient Follow Up Post Op Reason Comments Received Outside Medical Records [facility] Er Summary 07/19/2023 Cardiac Cath report Reason Comments Received Outside Medical Records [facility] Visit summary Hospital follow up 08/03/2023 Reason Comments Arm Injury Left Care Teams (unrecognized sec tion and content) Ged Teacher Relationship Specialty Start Date End Date Coni Rogers MD [address] [place] [address] PCP - General 09/30/09 Torri Nuñez Consulting Internal Medicine 03/05/13 Ged Teacher Relationship Specialty Start Date End Date Torri Nuñez Consulting Internal Medicine 03/05/13 Ged Teacher Relationship Specialty Start Date End Date Torri Nuñez Consulting Internal Medicine 03/05/13 Ged Teacher Relationship Specialty Start Date End Date Torri Nuñez Consulting Internal Medicine 03/05/13 Ged Teacher Relationship Specialty Start Date End Date Raymundoiman Torri L Consulting Internal Medicine 03/05/13 Ged Teacher Relationship Specialty Start Date End Date Coni Rogers MD [address] [facility] [place] [address] PCP - General Family Medicine 04/18/22 Torri Nuñez L Consulting Internal Medicine 03/05/13 Ged Teacher Relationship Specialty Start Date End Date Coni Rogers MD [address] [facility] [place] [address] PCP - General Family Medicine 04/18/22 Torri Nuñez Consulting Internal Medicine 03/05/13 Ged Teacher Relationship Specialty Start Date End Date Coni Rogers MD [address] [facility] [place] [address] PCP - General Family Medicine 04/18/22 Torri Nuñez Consulting Internal Medicine 03/05/13 Ged Teacher Relationship Specialty Start Date End Date Coni Rogers MD [address] [facility] [place] [address] PCP - General Family Medicine 04/18/22 Torri Nuñez Consulting Internal Medicine 03/05/13 Ged Teacher Relationship Specialty Start Date End Date Coni Rogers MD [address] [facility] [place] [address] PCP - General Family Medicine 04/18/22 Torri Nuñez Consulting Internal Medicine 03/05/13 Ged Teacher Relationship Specialty Start Date End Date Coni Rogers MD [address] [facility] [place] [address] PCP - General Family Medicine 04/18/22 Torri Nuñez Consulting Internal Medicine 03/05/13 Ged Teacher Relationship Specialty Start Date End Date Coni Rogers MD [address] [facility] [place] [address] PCP - General Family Medicine 04/18/22 Torri Nuñez Consulting Internal Medicine 03/05/13 Ged Teacher Relationship Specialty Start Date End Date Coni Rogers MD [address] [facility] [place] [address] PCP - General Family Medicine 04/18/22 Torri Nuñez Consulting Internal Medicine 03/05/13 Ged Teacher Relationship Specialty Start Date End Date Coni Rogers MD [address] [facility] [place] [address] PCP - General Family Medicine 04/18/22 Torri Nuñez Consulting Internal Medicine 03/05/13 Ged Teacher Relationship Specialty Start Date End Date Coni Rogers MD [address] [facility] [place] [address] PCP - General Family Medicine 04/18/22 Torri Nuñez Consulting Internal Medicine 03/05/13 Ged Teacher Relationship Specialty Start Date End Date Coni Rogers MD [address] [facility] [place] [address] PCP - General Family Medicine 04/18/22 Torri Nuñez Consulting Internal Medicine 03/05/13 Ged Teacher Relationship Specialty Start Date End Date Coni Rogers MD [address] [facility] [place] [address] PCP - General Family Medicine 04/18/22 Torri Nuñez Consulting Internal Medicine 03/05/13 Ged Teacher Relationship Specialty Start Date End Date Coni Rogers MD [address] [facility] [place] [address] PCP - General Family Medicine 04/18/22 Torri Nuñez Consulting Internal Medicine 03/05/13 Ged Teacher Relationship Specialty Start Date End Date Coni Rogers MD [address] [facility] [place] [address] PCP - General Family Medicine 04/18/22 Torri Nuñez Consulting Internal Medicine 03/05/13 Ged Teacher Relationship Specialty Start Date End Date Coni Rogers MD [address] [facility] [place] [address] PCP - General Family Medicine 04/18/22 Torri Nuñez Consulting Internal Medicine 03/05/13 Ged Teacher Relationship Specialty Start Date End Date Coni Rogers MD [address] [facility] [place] [address] PCP - General Family Medicine 04/18/22 Torri Nuñez Consulting Internal Medicine 03/05/13 Scheduled Active and Recently Administ ered Medications (unrecognized section and content) Medication Order 01/14/2023 01/15/2023 01/16/2023 acetaminophen 1,000 mg tab(s) (TYLENOL) (COMPLETED) 1,000 mg, ORAL, PRE-OP ONCE, 1 dose, On Sun01/16/23 at 1100, Preprocedure 1103 (Given - Provid er: Melania Mejía RN) promethazine 12.5 mg tab(s) (PHENERGAN) (COMPLETED) 12.5 mg, ORAL, PRE-OP ONCE, 1 dose, On Sun01/16/23 at 1100, Preprocedure 1103 (Given - Provid er: Melania Mejía RN) Continuous Medication Order 01/14/2023 01/15/2023 01/16/2023 lactated ringers iv infusion (CANCELED) 5-30 mL/hr, INTRAVENOUS, CONTINUOUS, Starting on Sun01/16/23 at 1100, Until Sun01/16/23 at 1149, Preprocedure 1100 (New Bag/Syring e/Bottle - Provider: Melania Mejía RN)1115 (Stopped - Provider: Tete Engel APRN.[employer] - Comment: Switch to gravity)1116 (Restarted - Provider: Tete Engel APRN.[employer])1141 (Anesthesia Volume Adjustment - Provider: Ekta Dale MD)1149 (Due: Infusion Complete) lactated ringers iv infusion 50 mL/hr, INTRAVENOUS, CONTINUOUS, Starting on Sun01/16/23 at 1200, Until Sun01/17/23 at 0304, Recovery or Phase I (only) 1200 (Due) PRN Medication Order 01/14/2023 01/15/2023 01/16/2023 BUPivacaine (PF) 30 mL, lidocaine-EPINEPHrine (PF) 30 mL (CANCELED) X (OR/PROCEDURE) PRN, Starting on Sun01/16/23 at 1112, Until Sun01/16/23 at 1149, Intraprocedure 1112 (Given - Provid er: Stephania Tinsley DO) fentaNYL 50 mcg/mL 50 mcg injection (SUBLIMAZE) 50 mcg, INTRAVENOUS, EVERY 10 MINUTES NEEDED, 4 doses, Starting on Sun01/16/23 at 1151, Until Sun01/17/23 at 0304, Moderate Pain (4-6) - Parenteral, Severe Pain (>/=7) - Parenteral, breakthrough pain, FIRST LINE THERAPY for mild, moderate, or severe pain, USE FOR MILD PAIN ONLY IF PATIENT IS UNABLE TO TOLERATE ORAL THERAPY, Recovery or Phase I (only) meperidine (PF) 12.5 mg injection (DEMEROL) 12.5 mg, INTRAVENOUS, EVERY 10 MINUTES NEEDED, 2 doses, Starting on Sun01/16/23 at 1151, Until Sun01/17/23 at 0304, for shivering, May Repeat 12.5 mg in 10 minutes X1, Recovery or Phase I (only) NaCl 0.9% irrigation solution (CANCELED) X (OR/PROCEDURE) PRN, Starting on Sun01/16/23 at 1119, Until Sun01/16/23 at 1149, Intraprocedure 1119 (Given - Provid er: Stephania Tinsley DO) oxyCODONE IR 5 mg tab(s) (ROXICODONE) 5 mg, ORAL, NEEDED, 1 dose, Starting on Sun01/16/23 at 1151, Until Sun01/17/23 at 0304, Mild Pain (1-3) - Enteral, Recovery or Phase I (only) prochlorperazine 10 mg injection (COMPAZINE) 10 mg, INTRAVENOUS, EVERY 6 HOURS NEEDED, Starting on Sun01/16/23 at 1151, Until 01/17/23 at 0304, Nausea/Vomiting - First Line - Parenteral, EVERY 6 HOURS NEEDED Protect From Light, Recovery or Phase I (only) (unrecognized sect ion and content) No Status Records FoundNo Status Records FoundNo Status Records Found INFORMATION SOURCE (unrecogn ized section and content) DATE CREATED AUTHOR 09/28/2023 [facility] DATE CREATED AUTHOR AUTHOR'S ORGANIZ ATION 10/20/2023 [facility] DATE CREATED AUTHOR AUTHOR'S ORGANIZ ATION 03/15/2024 [facility] FOR RECORDS PERTAINING TO PATIENTS WHO ARE OR HAVE BEEN ENROLLED IN A CHEMICAL DEPENDENCY/SUBSTANCEABUSE PROGRAM, SOME INFORMATION MAY BE OMITTED. This clinical summary was aggregated from multiple sources. Caution should be exercised in using it in the provision of clinical care. This summary normalizes information from multiple sources, and as a consequence, information in this document may materially change the coding, format and clinical context of patient data. In addition, data may be omitted in some cases. CLINICAL DECISIONS SHOULD BE BASED ON THE PRIMARY CLINICAL RECORDS. [employer] provides no warranty or guarantee of the accuracy or completeness of information in this document.
[2025-01-20 07:08] LABS: QNTFERON TB Mitogen Value > 10.00 IU/mL (.); QNTFERON TB Nil Value 0.04 IU/mL (.); QNTFERON TB1+ Ag Value 0.05 IU/mL (.); QNTFERON TB2+ Ag Value 0.05 IU/mL (.); QNTIFERON TB Positive Criteria Negative (Negative)
== END | disposition home or self-care (01) ==
LOC: MTLAB 16:58
PROVIDERS: PCP Family Medicine; Referring Provider Dermatology Pediatric Dermatology; Visit Provider Dermatology Pediatric Dermatology
DX: L40.0 Psoriasis vulgaris (principal)
CPT/HCPCS: 36415; 86480